=== PATIENT | male | born 1945 | race Caucasian/White ===

== ENCOUNTER 2019-03-22 11:28 | Inpatient (IN) | payer MEDICARE ==
[~2019-03-22] VITALS: Ht 175.3 cm; Wt 113.4 kg
[~2019-03-22 11:28] MED LIST: ALLO100T PO; ALPH300C PO; ASPI-482 PO; ATOR10TA PO; CALC500T54 PO; FERR325T14 PO; GABA300C18 PO; GLIP10TA13 PO; GLUC1TAB26 PO; INSU100I17 SQ; INSU100I27 SQ; LISI1TAB7 PO; METF10007 PO; METH-38 PO; METH4TAB2 PO; MULT1TAB52 PO; NAPR220C4 PO; OMEG500C PO; OXYC1TAB15 PO; POTA10TA12 PO; SITA100T PO; [UNRECOGNIZED DRUG - CODE] PO
[2019-03-22 12:27] LABS: BASO % 1 % (0-3); EOS # 0.2 x10^3/uL (0.0-0.7); EOS % 2 % (0-3); HEMATOCRIT 21.5 % (39.0-53.0); HEMOGLOBIN 7.2 g/dL (13.0-17.5); LYMPH # 1.5 x10^3/uL (1.0-4.8); LYMPH % 15 % (24-48); MEAN CORPUSCULAR HEMOGLOBIN 30 pg (25-35); MEAN CORPUSCULAR HGB CONC 34 g/dL (31-37); MEAN CORPUSCULAR VOLUME 88 fL (79-100); MONO # 0.8 x10^3/uL (0.0-1.1); MONO % 8 % (0-9); NEUT # 7.5 x10^3uL (1.8-7.7); NEUT % 75 % (31-73); PLATELET COUNT 476 x10^3/uL (140-400); RED BLOOD COUNT 2.44 x10^6/uL (4.30-5.70); RED CELL DISTRIBUTION WIDTH 15.2 % (11.5-14.5)
[2019-03-22 12:35] LABS: PROTHROMBIN TIME PATIENT 14.5 SEC (11.7-14.0)
[2019-03-22 13:00] LABS: CALCIUM 8.7 mg/dL (8.5-10.1); CREATININE 0.7 mg/dL (0.7-1.3); GFR 110.9
[2019-03-22 13:04] LABS: ALBUMIN 2.3 g/dL (3.4-5.0); ALBUMIN/GLOBULIN RATIO 0.6 (1.0-1.7); TOTAL BILIRUBIN 0.4 mg/dL (0.2-1.0); TOTAL PROTEIN 6.3 g/dL (6.4-8.2)
[2019-03-22 13:32] LABS: BILIRUBIN,URINE NEGATIVE (NEG); CLARITY,URINE CLEAR; COLOR,URINE YELLOW; NITRITE,URINE NEGATIVE (NEG); PH,URINE 5.5; PROTEIN,URINE NEGATIVE (NEG-TRACE); UROBILINOGEN,URINE 0.2 mg/dL (0.2 mg/dL)
[2019-03-22 13:40] LABS: HYALINE CASTS, URINE MODERATE /HPF; SQUAMOUS EPITHELIAL CELL,UR FEW /LPF
[2019-03-22 13:41] LABS: BACTERIA,URINE 0 /HPF (0-FEW); RBC,URINE 0 /HPF (0-2); WBC,URINE 0 /HPF (0-4)
--- NOTE | 2019-03-22 13:47 | PHYS DOC ---
Past Medical History Past Medical History: Diabetes-Type II, High Cholesterol, Heart Disease, Hypertension, Other Additional Past Medical Histor: COLON CA, SLEEP APNEA Past Surgical History: Cholecystectomy, Colectomy, Tonsillectomy Additional Past Surgical Histo: QUADRICEPS REPAIR Alcohol Use: None Drug Use: None Adult General Chief Complaint Chief Complaint: Abnormal labs HPI HPI Patient is a 73 year old wheelchair-bound male resident of rehabilitation who brought in by EMS because of abnormal labs. Patient had drop off his hemoglobin recently with hemoglobin of 7.5 today and sent to ER for evaluation. Patient had negative stool occult blood at long term. Patient denies hematuria and hematemesis and melena and states he thinks he had bleeding in his knee because he had knee edema since his surgery in November. Patient denies shortness of breath and chest pain, generalized weakness, history of anemia. Review of Systems Review of Systems Constitutional: Denies fever or chills [] Eyes: Denies change in visual acuity, redness, or eye pain [] HENT: Denies nasal congestion or sore throat [] Respiratory: Denies cough or shortness of breath [] Cardiovascular: No additional information not addressed in HPI [] GI: Denies abdominal pain, nausea, vomiting, bloody stools or diarrhea [] : Denies dysuria or hematuria [] Musculoskeletal: Denies back pain, reports joint pain [] Integument: Denies rash or skin lesions [] Neurologic: Denies headache, focal weakness or sensory changes [] Endocrine: Denies polyuria or polydipsia [] All other systems were reviewed and found to be within normal limits, except as documented in this note. Allergies Allergies Physical Exam Physical Exam Constitutional: Well developed, well nourished, no acute distress, non-toxic appearance, pallor , obese. [] HENT: Normocephalic, atraumatic Eyes: PERRLA, EOMI, conjunctiva normal, no discharge. [] Neck: Normal range of motion, no tenderness, supple, no stridor. [] Cardiovascular:Heart rate regular rhythm, no murmur [] Lungs & Thorax: Bilateral breath sounds clear to auscultation [] Abdomen: Bowel sounds normal, soft, no tenderness, no masses, no pulsatile masses. [] Skin: Warm, dry, no erythema, no rash. [] Extremities: Left lower extremity in the braces with moderate joint edema without ecchymosis Neurologic: Alert and oriented X 3 Psychologic: Affect normal, judgement normal, mood normal. [] Current Patient Data Lab Values Laboratory Tests Test 03/22/19 12:15 White Blood Count 10.0 x10^3/uL (4.0-11.0) Red Blood Count 2.46 x10^6/uL (4.30-5.70) L Hemoglobin 7.2 g/dL (13.0-17.5) L Hematocrit 21.5 % (39.0-53.0) L Mean Corpuscular Volume 88 fL (79-100) Mean Corpuscular Hemoglobin 30 pg (25-35) Mean Corpuscular Hemoglobin Concent 34 g/dL (31-37) Red Cell Distribution Width 15.2 % (11.5-14.5) H Platelet Count 476 x10^3/uL (140-400) H Neutrophils (%) (Auto) 75 % (31-73) H Lymphocytes (%) (Auto) 15 % (24-48) L Monocytes (%) (Auto) 8 % (0-9) Eosinophils (%) (Auto) 2 % (0-3) Basophils (%) (Auto) 1 % (0-3) Neutrophils # (Auto) 7.5 x10^3uL (1.8-7.7) Lymphocytes # (Auto) 1.5 x10^3/uL (1.0-4.8) Monocytes # (Auto) 0.8 x10^3/uL (0.0-1.1) Eosinophils # (Auto) 0.2 x10^3/uL (0.0-0.7) Basophils # (Auto) 0.0 x10^3/uL (0.0-0.2) Absolute Reticulocyte Count 0.068 x10^6/uL (0.020-0.120) Percent Reticulocyte Count 2.8 % (0.5-2.3) H Immature Reticulocyte Fraction 0.48 (0.20-0.60) Prothrombin Time 14.5 SEC (11.7-14.0) H Prothrombin Time INR 1.2 (0.8-1.1) H PTT 33 SEC (24-38) Sodium Level 137 mmol/L (136-145) Potassium Level 4.0 mmol/L (3.5-5.1) Chloride Level 101 mmol/L (98-107) Carbon Dioxide Level 27 mmol/L (21-32) Anion Gap 9 (6-14) Blood Urea Nitrogen 17 mg/dL (8-26) Creatinine 0.7 mg/dL (0.7-1.3) Estimated GFR (Cockcroft-Gault) 110.9 BUN/Creatinine Ratio 24 (6-20) H Glucose Level 157 mg/dL (70-99) H Calcium Level 8.7 mg/dL (8.5-10.1) Iron Level 18 ug/dL (65-175) L Total Iron Binding Capacity 162 ug/dL (250-450) L Iron Saturation 11 % (15-34) L Total Bilirubin 0.4 mg/dL (0.2-1.0) Aspartate Amino Transferase (AST) 15 U/L (15-37) Alanine Aminotransferase (ALT) 25 U/L (16-63) Alkaline Phosphatase 107 U/L (46-116) Troponin I Quantitative < 0.017 ng/mL (0.000-0.055) CM-Ttv-K-Type Natriuretic Peptide 356 pg/mL (0-124) H Total Protein 6.3 g/dL (6.4-8.2) L Albumin 2.3 g/dL (3.4-5.0) L Albumin/Globulin Ratio 0.6 (1.0-1.7) L Laboratory Tests 03/22/19 12:15 Laboratory Tests 03/22/19 12:15 EKG EKG [] Radiology/Procedures Radiology/Procedures [] Course & Med Decision Making Course & Med Decision Making Pertinent Labs reviewed. (See chart for details) Evaluation of patient in ER showed 73-year-old male patient sent from long term because of drop of his hemoglobin. Patient had hemoglobin of 7.2 in ER. Patient requiring admission for further evaluation and treatment. Discussed with Dr. Aguilar who is in agreement with admission. Discussed findings and plan with patient and family, who acknowledge understanding and agreement. Dragon Disclaimer Dragon Disclaimer This electronic medical record was generated, in whole or in part, using a voice recognition dictation system. Departure Departure Impression: Primary Impression: Anemia Disposition: ADMITTED INPATIENT (At 1312) Admitting Physician: Alfonso Trotter (accepted admission at 1311) Condition: STABLE Referrals: FORTINO JOHNSON (PCP) Scripts [Pantoprazole] 40 MG TABLET.DR Dewitt Conflict Check 40 MG PO DAILYAC for 30 Days, #30 Prov: ALFONSO AGUILAR MD 03/24/19 Problem Qualifiers Primary Impression: Anemia Anemia type: unspecified type Qualified Codes: D64.9 - Anemia, unspecified GREG STEEL MD March 22, 2019 13:47
--- NOTE | 2019-03-22 14:05 | PDOC1 ---
History and Physical Date of Admission Date of Admission DATE: 03/22/19 TIME: 14:05 Identification/Chief Complaint Chief Complaint seen in er , 73 year old wheelchair-bound male resident of rehabilitation who is brought in by EMS because of abnormal labs. Patient had drop off his hemoglobin recently with hemoglobin of 7.5 today and sent to ER for evaluation. Patient had negative stool occult blood at long-term. Patient denies hematuria and hematemesis and melena and states he thinks had bleeding in his knee because he had knee edema since his surgery in November. Patient denies shortness of breath and chest pain, generalized weakness, history of anemia. Past Medical History Past Medical History Past Medical History Past Medical History: Diabetes-Type II, High Cholesterol, Heart Disease, Hypertension, Other Additional Past Medical Histor: COLON CA, SLEEP APNEA Past Surgical History: Cholecystectomy, Colectomy, Tonsillectomy Additional Past Surgical Histo: QUADRICEPS REPAIR left leg 2019 Alcohol Use: None Drug Use: None family hx obesity Cardiovascular: HTN GI: No pertinent hx Heme/Onc: No pertinent hx Hepatobiliary: No pertinent hx Psych: No pertinent hx Musculoskeletal: low back pain Infectious disease: No pertinent hx Endocrine: Diabetes Past Surgical History Past Surgical History: Total knee replacement Family History Family History: No Significant, High Cholestrol, Hypertension Social History Smoke: No ALCOHOL: none Drugs: None Current Medications Current Medications Active Scripts Active Levemir Flextouch (Insulin Detemir) 100 Unit/1 Ml Insuln.pen 12 Units SQ QHS 30 Days Novolog Flexpen (Insulin Aspart) 100 Unit/1 Ml Insuln.pen 5 Units SQ TIDWMEALHC 30 Days Reported Robaxin-750 (Methocarbamol) 750 Mg Tablet 750 Mg PO PRN Q8HRS LAST DOSE GIVEN: DATE:10-15-16 TIME:8:30 a.m. NEXT DOSE DUE: DATE:10-15-16 TIME:4:30 p.m. if needed for muscle spasms Percocet 5-325 Mg Tablet (Oxycodone/Acetaminophen) 1 Each Tablet 1-2 Tab PO Q4- 6HRS No pain medication given this morning my take as needed for pain at any time Medrol (Methylprednisolone) 4 Mg Tab.ds.pk 1 Pkg PO UD Take as directed Allopurinol 100 Mg Tablet 1 Tab PO DAILY LAST DOSE GIVEN: DATE:10-15-16 TIME:8:30 a.m. NEXT DOSE DUE: DATE:10-16-16 TIME:8:30 a.m. Tdkwqoyxkd-Bdvojtljoyb-Bna Tab (Gluc/Juan-Msm#2/C/D3/[place]/Born) 1 Each Tablet 1 Each PO DAILY Not givne while in hosp. May resume at home as directed. Alpha Lipoic Acid 300 Mg Capsule 600 Mg PO DAILY Not given while in hosp. May resume at home as directed. Klor-Con 10 (Potassium Chloride) 10 Meq Tablet.er 1 Tab PO DAILY LAST DOSE GIVEN: DATE:10-15-16 TIME:8:30 a.m. NEXT DOSE DUE: DATE:10-16-16 TIME:8:30 a.m. Lipitor (Atorvastatin Calcium) 10 Mg Tablet 1 Tab PO QHS Not given while in hosp. May resume at home as directed Ferrous Sulfate 325 Mg Tablet 1 Tab PO BID LAST DOSE GIVEN: DATE:10-15-16 TIME:9:30 a.m. NEXT DOSE DUE: DATE:10-15-16 TIME:5:00 p.m. Calcium Lactate 650 Mg Tablet 250 Mg PO 8 TABS A DAY Not given whilein hosp. May resume at home as directed Fish Oil ([place]-3 Fatty Acids) 500 Mg Capsule.dr 1,000 Mg PO DAILY Not given while in hosp. May resume at home as directed Aspir 81 (Aspirin) 81 Mg Tablet.dr 1 Tab PO DAILY LAST DOSE GIVEN: DATE:10-15-16 TIME:9:00 a.m. NEXT DOSE DUE: DATE:10-16-16 TIME:9:00 a.m. Multivitamins (Multivitamin) 1 Each Tablet 1 Tab PO DAILY LAST DOSE GIVEN: DATE:10-15-16 TIME:8:30 a.m. NEXT DOSE DUE: DATE:10-16-16 TIME:8:30 a.m. Januvia (Sitagliptin Phosphate) 100 Mg Tablet 1 Tab PO DAILY LAST DOSE GIVEN: DATE:10-15-16 TIME:8:30 a.m. NEXT DOSE DUE: DATE:10-16-16 TIME:8;30 a.m. Lisinopril-Hctz 20-25 Mg Tab (Lisinopril/Hydrochlorothiazide) 1 Each Tablet 1 Tab PO DAILY LAST DOSE GIVEN: DATE:10-15-16 TIME:8:30 a.m. NEXT DOSE DUE: DATE:10-16-16 TIME:8:30 a.m. Metformin Hcl 1,000 Mg Tablet 1 Tab PO BID LAST DOSE GIVEN: DATE:10-15-16 TIME:9:00 a.m. NEXT DOSE DUE: DATE:10-15-16 TIME:5:00 p.m. Glipizide 10 Mg Tablet 1 Tab PO BID LAST DOSE GIVEN: DATE:10-15-16 TIME:8:30 a.m. NEXT DOSE DUE: DATE:10-15-16 TIME:5:00 p.m. Gabapentin 300 Mg Capsule 300 Mg PO BID LAST DOSE GIVEN: DATE:10-15-16 TIME:8:30 a.m. NEXT DOSE DUE: DATE:10-15-16 TIME:9:00 p.m. Allergies Allergies: Coded Allergies: triamcinolone (Verified Allergy, Intermediate, 10/14/16) tolerates dexamethasone ROS Review of System Review of Systems Review of Systems Constitutional: Denies fever or chills [] Eyes: Denies change in visual acuity, redness, or eye pain [] HENT: Denies nasal congestion or sore throat [] Respiratory: Denies cough or shortness of breath [] Cardiovascular: No additional information not addressed in HPI [] GI: Denies abdominal pain, nausea, vomiting, bloody stools or diarrhea [] : Denies dysuria or hematuria [] Musculoskeletal: Denies back pain, reports joint pain [] Integument: Denies rash or skin lesions [] Neurologic: Denies headache, focal weakness or sensory changes [] Endocrine: Denies polyuria or polydipsia [] 14 pt systems were reviewed and found to be within normal limits, except as documented General: YES: Fatigue Cardiovascular: No Chest Pain, No Palpitations, No Orthopnea, No Paroxysmal Noc. Dyspnea, No Edema, No Lt Headedness, No Other Gastrointestinal: No Nausea, No Vomiting, No Abdominal Pain, No Diarrhea, No Constipation, No Melena, No Hematochezia, No Other Musculoskeletal: Yes Gait Disturbance, Yes Joint Stiffness Neurological: Yes Gait Disturbance Physical Exam Physical Exam Physical Exam Physical Exam Constitutional: Well developed, well nourished, no acute distress, non-toxic appearance, pallor , obese. [] HENT: Normocephalic, atraumatic Eyes: PERRLA, EOMI, conjunctiva normal, no discharge. [] Neck: Normal range of motion, no tenderness, supple, no stridor. [] Cardiovascular:Heart rate regular rhythm, no murmur [] Lungs & Thorax: Bilateral breath sounds clear to auscultation [] Abdomen: Bowel sounds normal, soft, no tenderness, no masses, no pulsatile masses. [] Skin: Warm, dry, no erythema, no rash. [] Extremities: Left lower extremity in the braces with moderate joint edema without ecchymosis Neurologic: Alert and oriented X 3 Psychologic: Affect normal, judgement normal, mood normal. [] General: Alert, Oriented X3, Cooperative, mild distress HEENT: Atraumatic, PERRLA Lungs: Clear to auscultation Heart: RRR Abdomen: Normal bowel sounds, Soft, No tenderness Rectal Exam: not examined Extremities: No cyanosis Neuro: Normal speech, Cranial nerves 3-12 NL Psych/Mental Status: Mental status NL, Mood NL Vitals Vitals Vital Signs Date Time Temp Pulse Resp B/P (MAP) Pulse Ox O2 Delivery O2 Flow Rate FiO2 03/22/19 13:08 98.2 92 18 119/71 (87) 98 Room Air 98.2 Labs Labs Laboratory Tests Test 03/22/19 12:15 03/22/19 13:15 White Blood Count 10.0 x10^3/uL (4.0-11.0) Red Blood Count 2.44 x10^6/uL (4.30-5.70) Hemoglobin 7.2 g/dL (13.0-17.5) Hematocrit 21.5 % (39.0-53.0) Mean Corpuscular Volume 88 fL (79-100) Mean Corpuscular Hemoglobin 30 pg (25-35) Mean Corpuscular Hemoglobin Concent 34 g/dL (31-37) Red Cell Distribution Width 15.2 % (11.5-14.5) Platelet Count 476 x10^3/uL (140-400) Neutrophils (%) (Auto) 75 % (31-73) Lymphocytes (%) (Auto) 15 % (24-48) Monocytes (%) (Auto) 8 % (0-9) Eosinophils (%) (Auto) 2 % (0-3) Basophils (%) (Auto) 1 % (0-3) Neutrophils # (Auto) 7.5 x10^3uL (1.8-7.7) Lymphocytes # (Auto) 1.5 x10^3/uL (1.0-4.8) Monocytes # (Auto) 0.8 x10^3/uL (0.0-1.1) Eosinophils # (Auto) 0.2 x10^3/uL (0.0-0.7) Basophils # (Auto) 0.0 x10^3/uL (0.0-0.2) Prothrombin Time 14.5 SEC (11.7-14.0) Prothromb Time International Ratio 1.2 (0.8-1.1) Activated Partial Thromboplast Time 33 SEC (24-38) Sodium Level 137 mmol/L (136-145) Potassium Level 4.0 mmol/L (3.5-5.1) Chloride Level 101 mmol/L (98-107) Carbon Dioxide Level 27 mmol/L (21-32) Anion Gap 9 (6-14) Blood Urea Nitrogen 17 mg/dL (8-26) Creatinine 0.7 mg/dL (0.7-1.3) Estimated GFR (Cockcroft-Gault) 110.9 BUN/Creatinine Ratio 24 (6-20) Glucose Level 157 mg/dL (70-99) Calcium Level 8.7 mg/dL (8.5-10.1) Total Bilirubin 0.4 mg/dL (0.2-1.0) Aspartate Amino Transf (AST/SGOT) 15 U/L (15-37) Alanine Aminotransferase (ALT/SGPT) 25 U/L (16-63) Alkaline Phosphatase 107 U/L (46-116) Troponin I Quantitative < 0.017 ng/mL (0.000-0.055) NW-Zwh-K-Type Natriuretic Peptide 356 pg/mL (0-124) Total Protein 6.3 g/dL (6.4-8.2) Albumin 2.3 g/dL (3.4-5.0) Albumin/Globulin Ratio 0.6 (1.0-1.7) Urine Collection Type Unknown Urine Color Yellow Urine Clarity Clear Urine pH 5.5 Urine Specific [place] 1.015 Urine Protein Negative mg/dL (NEG-TRACE) Urine Glucose (UA) Negative mg/dL (NEG) Urine Ketones (Stick) Negative mg/dL (NEG) Urine Blood Negative (NEG) Urine Nitrite Negative (NEG) Urine Bilirubin Negative (NEG) Urine Urobilinogen Dipstick 0.2 mg/dL (0.2 mg/dL) Urine Leukocyte Esterase Negative (NEG) Urine RBC 0 /HPF (0-2) Urine WBC 0 /HPF (0-4) Urine Squamous Epithelial Cells Few /LPF Urine Bacteria 0 /HPF (0-FEW) Urine Hyaline Casts Moderate /HPF Urine Mucus Marked /LPF Laboratory Tests Test 03/22/19 12:15 03/22/19 13:15 White Blood Count 10.0 x10^3/uL (4.0-11.0) Red Blood Count 2.44 x10^6/uL (4.30-5.70) Hemoglobin 7.2 g/dL (13.0-17.5) Hematocrit 21.5 % (39.0-53.0) Mean Corpuscular Volume 88 fL (79-100) Mean Corpuscular Hemoglobin 30 pg (25-35) Mean Corpuscular Hemoglobin Concent 34 g/dL (31-37) Red Cell Distribution Width 15.2 % (11.5-14.5) Platelet Count 476 x10^3/uL (140-400) Neutrophils (%) (Auto) 75 % (31-73) Lymphocytes (%) (Auto) 15 % (24-48) Monocytes (%) (Auto) 8 % (0-9) Eosinophils (%) (Auto) 2 % (0-3) Basophils (%) (Auto) 1 % (0-3) Neutrophils # (Auto) 7.5 x10^3uL (1.8-7.7) Lymphocytes # (Auto) 1.5 x10^3/uL (1.0-4.8) Monocytes # (Auto) 0.8 x10^3/uL (0.0-1.1) Eosinophils # (Auto) 0.2 x10^3/uL (0.0-0.7) Basophils # (Auto) 0.0 x10^3/uL (0.0-0.2) Prothrombin Time 14.5 SEC (11.7-14.0) Prothromb Time International Ratio 1.2 (0.8-1.1) Activated Partial Thromboplast Time 33 SEC (24-38) Sodium Level 137 mmol/L (136-145) Potassium Level 4.0 mmol/L (3.5-5.1) Chloride Level 101 mmol/L (98-107) Carbon Dioxide Level 27 mmol/L (21-32) Anion Gap 9 (6-14) Blood Urea Nitrogen 17 mg/dL (8-26) Creatinine 0.7 mg/dL (0.7-1.3) Estimated GFR (Cockcroft-Gault) 110.9 BUN/Creatinine Ratio 24 (6-20) Glucose Level 157 mg/dL (70-99) Calcium Level 8.7 mg/dL (8.5-10.1) Total Bilirubin 0.4 mg/dL (0.2-1.0) Aspartate Amino Transf (AST/SGOT) 15 U/L (15-37) Alanine Aminotransferase (ALT/SGPT) 25 U/L (16-63) Alkaline Phosphatase 107 U/L (46-116) Troponin I Quantitative < 0.017 ng/mL (0.000-0.055) FJ-Gfw-V-Type Natriuretic Peptide 356 pg/mL (0-124) Total Protein 6.3 g/dL (6.4-8.2) Albumin 2.3 g/dL (3.4-5.0) Albumin/Globulin Ratio 0.6 (1.0-1.7) Urine Collection Type Unknown Urine Color Yellow Urine Clarity Clear Urine pH 5.5 Urine Specific [place] 1.015 Urine Protein Negative mg/dL (NEG-TRACE) Urine Glucose (UA) Negative mg/dL (NEG) Urine Ketones (Stick) Negative mg/dL (NEG) Urine Blood Negative (NEG) Urine Nitrite Negative (NEG) Urine Bilirubin Negative (NEG) Urine Urobilinogen Dipstick 0.2 mg/dL (0.2 mg/dL) Urine Leukocyte Esterase Negative (NEG) Urine RBC 0 /HPF (0-2) Urine WBC 0 /HPF (0-4) Urine Squamous Epithelial Cells Few /LPF Urine Bacteria 0 /HPF (0-FEW) Urine Hyaline Casts Moderate /HPF Urine Mucus Marked /LPF Images Images TECHNIQUE Sagittal T1, sagittal T2, sagittal STIR, axial T2, and axial T2 gradient sequences are provided. Standard coils could not be utilized, this results in poor signal to noise ratio limiting the study. COMPARISON CT from earlier today. FINDINGS There is no malalignment. There is fusion of C6 and C7, reported to be surgical. There is trace prevertebral edema but no thickening of the prevertebral soft tissues. There is no ligamentous injury or marrow edema on STIR imaging. Cervicomedullary junction is unremarkable. There is cord hyperintensity suspected at C5-C6. There is advanced degenerative change at this level. Degenerative findings will be estimated below, allowing for limitations of signal to noise ratio. C2-C3: There is facet hypertrophy without canal or foraminal compromise. C3-C4: There is a disc osteophyte complex and uncinate process spurring. There is buckling of ligamentum flavum. There is mild to moderate canal stenosis and probably high-grade bilateral foraminal narrowing. C4-C5: There is abnormal signal within the interspace at this level but no adjacent edema. This abnormal signal could be degenerative. It is unlikely to be infectious given no adjacent edema. Is unlikely to be posttraumatic given no adjacent marrow edema. There is a disc osteophyte complex and uncinate process spurring at this level with mild canal stenosis and mild foraminal narrowing. C5-C6: Prominent disc osteophyte complex and buckling of ligamentum flavum result in severe canal stenosis and cord flattening along with cord hyperintensity. Foraminal narrowing is at least mild to moderate. C6-C7: There is no canal or foraminal compromise. C7-T1: There is no canal or foraminal compromise. IMPRESSION 1. Prominent disc osteophyte complex and buckling of ligamentum flavum at C5-C6 with high-grade canal stenosis. Cord hyperintensity at this level may represent edema or myelomalacia. 2. Trace prevertebral edema on STIR imaging. No evidence of marrow edema or ligamentous injury. Abnormal signal within the C4-C5 disc is favored to be degenerative. 3. Additional degenerative changes throughout the cervical spine, estimated above. 4. Exam limited by body habitus and poor signal to noise ratio. 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
[2019-03-22 14:25] VITALS: BP 144/57
[2019-03-22] MEDS ORDERED: LISI1TAB3 PO (16:53)
[2019-03-22] MEDS ORDERED: CALCIUM LACTATE PO SCH (18:30)
[2019-03-22] MEDS ORDERED: oxyCODONE/APAP 5/325 1 TAB TABLET PO PRN ×2 (18:30→18:45)
[2019-03-22] MEDS: PANTOPRAZOLE IV PUSH 40 MG VIAL. IVP SCH (18:52)
[2019-03-22 19:00] VITALS: BP 126/61
[2019-03-22] MEDS ORDERED: INSULIN GLARGINE 300 UNITS/3 ML INSULN.PEN. SQ SCH (21:00)
[2019-03-22] MEDS ORDERED: INSULIN LISPRO 300 UNITS/3 ML INSULN.PEN. SQ SCH (21:00)
[2019-03-22] MEDS: FERROUS SULFATE 325 MG TABLET. PO SCH (21:10)
[2019-03-22] MEDS: ATORVASTATIN CALCIUM 10 MG TABLET. PO SCH (21:10)
[2019-03-22 23:00] VITALS: BP 124/55
[2019-03-23 04:00] VITALS: BP 120/57
[2019-03-23 07:00] VITALS: BP 117/45
[2019-03-23 08:29] LABS: BASO # 0.1 x10^3/uL (0.0-0.2); BASO % 1 % (0-3); EOS # 0.2 x10^3/uL (0.0-0.7); EOS % 3 % (0-3); HEMATOCRIT 22.6 % (39.0-53.0); HEMOGLOBIN 7.4 g/dL (13.0-17.5); LYMPH # 1.9 x10^3/uL (1.0-4.8); LYMPH % 20 % (24-48); MEAN CORPUSCULAR HEMOGLOBIN 29 pg (25-35); MEAN CORPUSCULAR HGB CONC 33 g/dL (31-37); MEAN CORPUSCULAR VOLUME 88 fL (79-100); MONO # 0.7 x10^3/uL (0.0-1.1); MONO % 7 % (0-9); NEUT # 6.9 x10^3uL (1.8-7.7); NEUT % 71 % (31-73); PLATELET COUNT 519 x10^3/uL (140-400); RED BLOOD COUNT 2.57 x10^6/uL (4.30-5.70); RED CELL DISTRIBUTION WIDTH 15.4 % (11.5-14.5); WHITE BLOOD COUNT 9.8 x10^3/uL (4.0-11.0)
[2019-03-23 08:38] LABS: CALCIUM 9.1 mg/dL (8.5-10.1); CREATININE 0.7 mg/dL (0.7-1.3); GFR 110.9; POTASSIUM 4.1 mmol/L (3.5-5.1)
[2019-03-23] MEDS: glipiZIDE 5 MG TABLET PO SCH ×2 (08:55→16:27)
[2019-03-23] MEDS: PANTOPRAZOLE IV PUSH 40 MG VIAL. IVP SCH (08:55)
[2019-03-23] MEDS: LINAGLIPTIN 5 MG TABLET PO SCH (08:56)
[2019-03-23] MEDS: POTASSIUM CHLORIDE 10 MEQ TABLET.ER. PO SCH (08:56)
[2019-03-23] MEDS: FERROUS SULFATE 325 MG TABLET. PO SCH ×2 (08:56→20:55)
[2019-03-23] MEDS: hydroCHLOROthiazide 12.5 MG CAPSULE PO SCH (08:56)
[2019-03-23] MEDS: LISINOPRIL 10 MG TABLET PO SCH (08:56)
[2019-03-23] MEDS: OMEGA-3 FATTY ACIDS/FISH OIL 1,000 MG CAPSULE. PO SCH (08:57)
[2019-03-23] MEDS: MULTIVITAMIN with MINERAL TABLET. PO SCH (08:57)
[2019-03-23] MEDS ORDERED: NON FORMULARY ITEM (Alpha Lipoic Acid 600 MG) PO SCH (09:00)
[2019-03-23] MEDS ORDERED: NON FORMULARY ITEM (Gluc/Chon-Msm#2/C/D3/Mang/Born (Glucosamin-Chondroitin-Msm Tab) 1 EACH PO SCH (09:00)
--- NOTE | 2019-03-23 09:43 | PDOC2 ---
GI CONSULT Reason For Consult: Anemia, possible GI bleed HPI: HPI: 73 y/o male sent to ER from rehab facility w/ abnormal labs. Hgb 7.2, MCV 88, RDW 15.2. Per ER note, previous fecal occult was negative. Iron 18, TIBC 162, sat 11. For comparison, Hgb was 12.7 in 2016. Denies GI bleeding including hematemesis, hematochezia, and melena (though he doesn't look at stools). Takes ASA 81mg QD and iron BID "for a couple years." Has known about anemia since sometime last month. Had knee surgery @ [facility] in 11/2018, post-op complications w/ falls, had to have another left knee surgery and then a right knee surgery. Still significant pain in left knee, reports "it's mushy" and was to see surgeon on Thursday. Daily Aleve for "arthritis pain." Denies reflux/heartburn, dysphagia, n/v, abd pain, diarrhea, and constipation. Recently has been having two small stools daily. Mobility in challenging, difficult to get to the toilet/commode. Recently has had Eating less since surgeries, thinks ~40 pound weight loss while in and out of rehab. H/o colon cancer in 06/2000 - colonoscopy report from Dr. 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 He has resection and chemo. Repeat exam in 2000 showed polyps @ anastomosis, then had normal colonoscopy in 2001. He reports last colonoscopy ~4-5 years ago @ [facility] (though not in office EMR). Denies previous EGD. S/p cholecystectomy ("when they operated on my colon"). Denies liver, pancreas, or PUD history. PMH: PMH: HTN, HLD, DM, SHERLYN (CPAP), colon cancer colon resection and chemo, hernia repair w/ mesh, cholecystectomy, cervical discectomy, bilateral knee surgeries, tonsillectomy FH: Family History: Other (father - colon polyps) Social History: Smoke: No ALCOHOL: none Drugs: None ROS: GEN: Denies fevers, chills, sweats HEENT: Denies blurred vision, sore throat CV: Denies chest pain RESP: Denies shortness of air, cough GI: Per HPI : Denies hematuria, dysuria ENDO: _weight loss NEURO: Denies confusion, dizziness MSK: +knee pain SKIN: Denies jaundice, pruritus Vitals: Vitals: Vital Signs Date Time Temp Pulse Resp B/P (MAP) Pulse Ox O2 Delivery O2 Flow Rate FiO2 03/23/19 08:56 112 122/52 03/23/19 07:00 98.3 20 96 Room Air 98.3 Labs: Labs: Laboratory Tests Test 03/22/19 12:15 03/22/19 13:15 03/22/19 18:13 03/22/19 21:15 White Blood Count 10.0 x10^3/uL (4.0-11.0) Red Blood Count 2.46 x10^6/uL (4.30-5.70) Hemoglobin 7.2 g/dL (13.0-17.5) Hematocrit 21.5 % (39.0-53.0) Mean Corpuscular Volume 88 fL (79-100) Mean Corpuscular Hemoglobin 30 pg (25-35) Mean Corpuscular Hemoglobin Concent 34 g/dL (31-37) Red Cell Distribution Width 15.2 % (11.5-14.5) Platelet Count 476 x10^3/uL (140-400) Neutrophils (%) (Auto) 75 % (31-73) Lymphocytes (%) (Auto) 15 % (24-48) Monocytes (%) (Auto) 8 % (0-9) Eosinophils (%) (Auto) 2 % (0-3) Basophils (%) (Auto) 1 % (0-3) Neutrophils # (Auto) 7.5 x10^3uL (1.8-7.7) Lymphocytes # (Auto) 1.5 x10^3/uL (1.0-4.8) Monocytes # (Auto) 0.8 x10^3/uL (0.0-1.1) Eosinophils # (Auto) 0.2 x10^3/uL (0.0-0.7) Basophils # (Auto) 0.0 x10^3/uL (0.0-0.2) Absolute Reticulocyte Count 0.068 x10^6/uL (0.020-0.120) Percent Reticulocyte Count 2.8 % (0.5-2.3) Immature Reticulocyte Fraction 0.48 (0.20-0.60) Prothrombin Time 14.5 SEC (11.7-14.0) Prothromb Time International Ratio 1.2 (0.8-1.1) Activated Partial Thromboplast Time 33 SEC (24-38) Sodium Level 137 mmol/L (136-145) Potassium Level 4.0 mmol/L (3.5-5.1) Chloride Level 101 mmol/L (98-107) Carbon Dioxide Level 27 mmol/L (21-32) Anion Gap 9 (6-14) Blood Urea Nitrogen 17 mg/dL (8-26) Creatinine 0.7 mg/dL (0.7-1.3) Estimated GFR (Cockcroft-Gault) 110.9 BUN/Creatinine Ratio 24 (6-20) Glucose Level 157 mg/dL (70-99) Calcium Level 8.7 mg/dL (8.5-10.1) Iron Level 18 ug/dL (65-175) Total Iron Binding Capacity 162 ug/dL (250-450) Iron Saturation 11 % (15-34) Total Bilirubin 0.4 mg/dL (0.2-1.0) Aspartate Amino Transf (AST/SGOT) 15 U/L (15-37) Alanine Aminotransferase (ALT/SGPT) 25 U/L (16-63) Alkaline Phosphatase 107 U/L (46-116) Troponin I Quantitative < 0.017 ng/mL (0.000-0.055) BG-Urw-Y-Type Natriuretic Peptide 356 pg/mL (0-124) Total Protein 6.3 g/dL (6.4-8.2) Albumin 2.3 g/dL (3.4-5.0) Albumin/Globulin Ratio 0.6 (1.0-1.7) Urine Collection Type Unknown Urine Color Yellow Urine Clarity Clear Urine pH 5.5 Urine Specific [place] 1.015 Urine Protein Negative mg/dL (NEG-TRACE) Urine Glucose (UA) Negative mg/dL (NEG) Urine Ketones (Stick) Negative mg/dL (NEG) Urine Blood Negative (NEG) Urine Nitrite Negative (NEG) Urine Bilirubin Negative (NEG) Urine Urobilinogen Dipstick 0.2 mg/dL (0.2 mg/dL) Urine Leukocyte Esterase Negative (NEG) Urine RBC 0 /HPF (0-2) Urine WBC 0 /HPF (0-4) Urine Squamous Epithelial Cells Few /LPF Urine Bacteria 0 /HPF (0-FEW) Urine Hyaline Casts Moderate /HPF Urine Mucus Marked /LPF Glucose (Fingerstick) 49 mg/dL (70-99) 75 mg/dL (70-99) Test 03/22/19 23:58 03/23/19 07:25 03/23/19 07:57 Glucose (Fingerstick) 114 mg/dL (70-99) 138 mg/dL (70-99) White Blood Count 9.8 x10^3/uL (4.0-11.0) Red Blood Count 2.57 x10^6/uL (4.30-5.70) Hemoglobin 7.4 g/dL (13.0-17.5) Hematocrit 22.6 % (39.0-53.0) Mean Corpuscular Volume 88 fL (79-100) Mean Corpuscular Hemoglobin 29 pg (25-35) Mean Corpuscular Hemoglobin Concent 33 g/dL (31-37) Red Cell Distribution Width 15.4 % (11.5-14.5) Platelet Count 519 x10^3/uL (140-400) Neutrophils (%) (Auto) 71 % (31-73) Lymphocytes (%) (Auto) 20 % (24-48) Monocytes (%) (Auto) 7 % (0-9) Eosinophils (%) (Auto) 3 % (0-3) Basophils (%) (Auto) 1 % (0-3) Neutrophils # (Auto) 6.9 x10^3uL (1.8-7.7) Lymphocytes # (Auto) 1.9 x10^3/uL (1.0-4.8) Monocytes # (Auto) 0.7 x10^3/uL (0.0-1.1) Eosinophils # (Auto) 0.2 x10^3/uL (0.0-0.7) Basophils # (Auto) 0.1 x10^3/uL (0.0-0.2) Sodium Level 137 mmol/L (136-145) Potassium Level 4.1 mmol/L (3.5-5.1) Chloride Level 100 mmol/L (98-107) Carbon Dioxide Level 28 mmol/L (21-32) Anion Gap 9 (6-14) Blood Urea Nitrogen 12 mg/dL (8-26) Creatinine 0.7 mg/dL (0.7-1.3) Estimated GFR (Cockcroft-Gault) 110.9 Glucose Level 128 mg/dL (70-99) Calcium Level 9.1 mg/dL (8.5-10.1) Allergies: Coded Allergies: triamcinolone (Verified Allergy, Intermediate, 10/14/16) tolerates dexamethasone Medications: Current Medications Medications (Trade) Dose Ordered Sig/Elodia Route PRN Reason Start Time Stop Time Status Last Admin Dose Admin Pantoprazole Sodium (PROTONIX VIAL for IV PUSH) 40 mg DAILYAC IVP 03/22/19 18:30 03/23/19 08:55 Atorvastatin Calcium (Lipitor) 10 mg QHS PO 03/22/19 21:00 03/22/19 21:10 Ferrous Sulfate (Feosol) 325 mg BID PO 03/22/19 21:00 03/23/19 08:56 Potassium Chloride (Klor-Con) 10 meq DAILY PO 03/23/19 09:00 03/23/19 08:56 Glipizide (Glucotrol) 10 mg BIDBFRMEAL PO 03/23/19 07:30 03/23/19 08:55 Lisinopril (Prinivil) 10 mg DAILY PO 03/23/19 09:00 03/23/19 08:56 Multivitamins (Thera M Plus) 1 tab DAILY PO 03/23/19 09:00 03/23/19 08:57 Fish Oil (Fish Oil) 1,000 mg DAILY PO 03/23/19 09:00 03/23/19 08:57 Linagliptin (Tradjenta) 5 mg DAILY PO 03/23/19 09:00 03/23/19 08:56 Hydrochlorothiazide (Microzide) 12.5 mg DAILY PO 03/23/19 09:00 03/23/19 08:56 PE: GEN: NAD - laying in bed, asks RN to help him raise the head of bed HEENT: Atraumatic, PERRL LUNGS: CTAB HEART: RRR ABD: NABS, S/NT, obese EXTREMITY: brace on left knee, obviously uncomfortable w/ movement SKIN: No rashes, no jaundice NEURO/PSYCH: A & O 3 A/P: A/P: Anemia - mixed picture Recent knee surgeries, chronic pain H/o colon cancer w/ resection and chemo in 1999 - ?last colonoscopy S/p cholecystectomy NSAID use -- Note has iron BID ordered. Can change PPI to PO since eating. Will review any recs re: need for 'scopes w/ Dr. Odonnell. MARIO LOUIS March 23, 2019 09:43
--- NOTE | 2019-03-23 10:19 | PDOC ---
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 s/p fall with central cord syndrome 2016 diabetes type 2 uncontrolled morbid obesity HTN H/o colon cancer w/ resection and chemo in 1999 - ?last colonoscopy plan monitor h/h retic count iron panel ct abd/ pelvis r/o mass transfuse for hgb < 7.0 GI CONSULT IV PROTONIX 73 MIN PT EXAM, CHART REVIEW, > 50% OF TIME SPENT with exam, chart review, pt care coordination Vitals Vitals Vital Signs Date Time Temp Pulse Resp B/P (MAP) Pulse Ox O2 Delivery O2 Flow Rate FiO2 03/23/19 08:56 112 122/52 03/23/19 07:00 98.3 20 96 Room Air 98.3 Physical Exam General: Alert, Oriented X3, Cooperative, No acute distress, mild distress Lungs: Clear, Wheezing Abdomen: Normal bowel sounds, Soft, No tenderness Extremities: No cyanosis Skin: No rashes Labs LABS Laboratory Tests Test 03/22/19 12:15 03/22/19 13:15 03/22/19 18:13 03/22/19 21:15 White Blood Count 10.0 x10^3/uL (4.0-11.0) Red Blood Count 2.46 x10^6/uL (4.30-5.70) Hemoglobin 7.2 g/dL (13.0-17.5) Hematocrit 21.5 % (39.0-53.0) Mean Corpuscular Volume 88 fL (79-100) Mean Corpuscular Hemoglobin 30 pg (25-35) Mean Corpuscular Hemoglobin Concent 34 g/dL (31-37) Red Cell Distribution Width 15.2 % (11.5-14.5) Platelet Count 476 x10^3/uL (140-400) Neutrophils (%) (Auto) 75 % (31-73) Lymphocytes (%) (Auto) 15 % (24-48) Monocytes (%) (Auto) 8 % (0-9) Eosinophils (%) (Auto) 2 % (0-3) Basophils (%) (Auto) 1 % (0-3) Neutrophils # (Auto) 7.5 x10^3uL (1.8-7.7) Lymphocytes # (Auto) 1.5 x10^3/uL (1.0-4.8) Monocytes # (Auto) 0.8 x10^3/uL (0.0-1.1) Eosinophils # (Auto) 0.2 x10^3/uL (0.0-0.7) Basophils # (Auto) 0.0 x10^3/uL (0.0-0.2) Absolute Reticulocyte Count 0.068 x10^6/uL (0.020-0.120) Percent Reticulocyte Count 2.8 % (0.5-2.3) Immature Reticulocyte Fraction 0.48 (0.20-0.60) Prothrombin Time 14.5 SEC (11.7-14.0) Prothromb Time International Ratio 1.2 (0.8-1.1) Activated Partial Thromboplast Time 33 SEC (24-38) Sodium Level 137 mmol/L (136-145) Potassium Level 4.0 mmol/L (3.5-5.1) Chloride Level 101 mmol/L (98-107) Carbon Dioxide Level 27 mmol/L (21-32) Anion Gap 9 (6-14) Blood Urea Nitrogen 17 mg/dL (8-26) Creatinine 0.7 mg/dL (0.7-1.3) Estimated GFR (Cockcroft-Gault) 110.9 BUN/Creatinine Ratio 24 (6-20) Glucose Level 157 mg/dL (70-99) Calcium Level 8.7 mg/dL (8.5-10.1) Iron Level 18 ug/dL (65-175) Total Iron Binding Capacity 162 ug/dL (250-450) Iron Saturation 11 % (15-34) Total Bilirubin 0.4 mg/dL (0.2-1.0) Aspartate Amino Transf (AST/SGOT) 15 U/L (15-37) Alanine Aminotransferase (ALT/SGPT) 25 U/L (16-63) Alkaline Phosphatase 107 U/L (46-116) Troponin I Quantitative < 0.017 ng/mL (0.000-0.055) EE-Cps-P-Type Natriuretic Peptide 356 pg/mL (0-124) Total Protein 6.3 g/dL (6.4-8.2) Albumin 2.3 g/dL (3.4-5.0) Albumin/Globulin Ratio 0.6 (1.0-1.7) Urine Collection Type Unknown Urine Color Yellow Urine Clarity Clear Urine pH 5.5 Urine Specific [place] 1.015 Urine Protein Negative mg/dL (NEG-TRACE) Urine Glucose (UA) Negative mg/dL (NEG) Urine Ketones (Stick) Negative mg/dL (NEG) Urine Blood Negative (NEG) Urine Nitrite Negative (NEG) Urine Bilirubin Negative (NEG) Urine Urobilinogen Dipstick 0.2 mg/dL (0.2 mg/dL) Urine Leukocyte Esterase Negative (NEG) Urine RBC 0 /HPF (0-2) Urine WBC 0 /HPF (0-4) Urine Squamous Epithelial Cells Few /LPF Urine Bacteria 0 /HPF (0-FEW) Urine Hyaline Casts Moderate /HPF Urine Mucus Marked /LPF Glucose (Fingerstick) 49 mg/dL (70-99) 75 mg/dL (70-99) Test 03/22/19 23:58 03/23/19 07:25 03/23/19 07:57 Glucose (Fingerstick) 114 mg/dL (70-99) 138 mg/dL (70-99) White Blood Count 9.8 x10^3/uL (4.0-11.0) Red Blood Count 2.57 x10^6/uL (4.30-5.70) Hemoglobin 7.4 g/dL (13.0-17.5) Hematocrit 22.6 % (39.0-53.0) Mean Corpuscular Volume 88 fL (79-100) Mean Corpuscular Hemoglobin 29 pg (25-35) Mean Corpuscular Hemoglobin Concent 33 g/dL (31-37) Red Cell Distribution Width 15.4 % (11.5-14.5) Platelet Count 519 x10^3/uL (140-400) Neutrophils (%) (Auto) 71 % (31-73) Lymphocytes (%) (Auto) 20 % (24-48) Monocytes (%) (Auto) 7 % (0-9) Eosinophils (%) (Auto) 3 % (0-3) Basophils (%) (Auto) 1 % (0-3) Neutrophils # (Auto) 6.9 x10^3uL (1.8-7.7) Lymphocytes # (Auto) 1.9 x10^3/uL (1.0-4.8) Monocytes # (Auto) 0.7 x10^3/uL (0.0-1.1) Eosinophils # (Auto) 0.2 x10^3/uL (0.0-0.7) Basophils # (Auto) 0.1 x10^3/uL (0.0-0.2) Sodium Level 137 mmol/L (136-145) Potassium Level 4.1 mmol/L (3.5-5.1) Chloride Level 100 mmol/L (98-107) Carbon Dioxide Level 28 mmol/L (21-32) Anion Gap 9 (6-14) Blood Urea Nitrogen 12 mg/dL (8-26) Creatinine 0.7 mg/dL (0.7-1.3) Estimated GFR (Cockcroft-Gault) 110.9 Glucose Level 128 mg/dL (70-99) Calcium Level 9.1 mg/dL (8.5-10.1) Comment Review of Relevant I have reviewed the following items jennifer (where applicable) has been applied. Labs Laboratory Tests Test 03/22/19 12:15 03/22/19 13:15 03/22/19 18:13 03/22/19 21:15 White Blood Count 10.0 x10^3/uL (4.0-11.0) Red Blood Count 2.46 x10^6/uL (4.30-5.70) Hemoglobin 7.2 g/dL (13.0-17.5) Hematocrit 21.5 % (39.0-53.0) Mean Corpuscular Volume 88 fL (79-100) Mean Corpuscular Hemoglobin 30 pg (25-35) Mean Corpuscular Hemoglobin Concent 34 g/dL (31-37) Red Cell Distribution Width 15.2 % (11.5-14.5) Platelet Count 476 x10^3/uL (140-400) Neutrophils (%) (Auto) 75 % (31-73) Lymphocytes (%) (Auto) 15 % (24-48) Monocytes (%) (Auto) 8 % (0-9) Eosinophils (%) (Auto) 2 % (0-3) Basophils (%) (Auto) 1 % (0-3) Neutrophils # (Auto) 7.5 x10^3uL (1.8-7.7) Lymphocytes # (Auto) 1.5 x10^3/uL (1.0-4.8) Monocytes # (Auto) 0.8 x10^3/uL (0.0-1.1) Eosinophils # (Auto) 0.2 x10^3/uL (0.0-0.7) Basophils # (Auto) 0.0 x10^3/uL (0.0-0.2) Absolute Reticulocyte Count 0.068 x10^6/uL (0.020-0.120) Percent Reticulocyte Count 2.8 % (0.5-2.3) Immature Reticulocyte Fraction 0.48 (0.20-0.60) Prothrombin Time 14.5 SEC (11.7-14.0) Prothromb Time International Ratio 1.2 (0.8-1.1) Activated Partial Thromboplast Time 33 SEC (24-38) Sodium Level 137 mmol/L (136-145) Potassium Level 4.0 mmol/L (3.5-5.1) Chloride Level 101 mmol/L (98-107) Carbon Dioxide Level 27 mmol/L (21-32) Anion Gap 9 (6-14) Blood Urea Nitrogen 17 mg/dL (8-26) Creatinine 0.7 mg/dL (0.7-1.3) Estimated GFR (Cockcroft-Gault) 110.9 BUN/Creatinine Ratio 24 (6-20) Glucose Level 157 mg/dL (70-99) Calcium Level 8.7 mg/dL (8.5-10.1) Iron Level 18 ug/dL (65-175) Total Iron Binding Capacity 162 ug/dL (250-450) Iron Saturation 11 % (15-34) Total Bilirubin 0.4 mg/dL (0.2-1.0) Aspartate Amino Transf (AST/SGOT) 15 U/L (15-37) Alanine Aminotransferase (ALT/SGPT) 25 U/L (16-63) Alkaline Phosphatase 107 U/L (46-116) Troponin I Quantitative < 0.017 ng/mL (0.000-0.055) GF-Lxe-P-Type Natriuretic Peptide 356 pg/mL (0-124) Total Protein 6.3 g/dL (6.4-8.2) Albumin 2.3 g/dL (3.4-5.0) Albumin/Globulin Ratio 0.6 (1.0-1.7) Urine Collection Type Unknown Urine Color Yellow Urine Clarity Clear Urine pH 5.5 Urine Specific [place] 1.015 Urine Protein Negative mg/dL (NEG-TRACE) Urine Glucose (UA) Negative mg/dL (NEG) Urine Ketones (Stick) Negative mg/dL (NEG) Urine Blood Negative (NEG) Urine Nitrite Negative (NEG) Urine Bilirubin Negative (NEG) Urine Urobilinogen Dipstick 0.2 mg/dL (0.2 mg/dL) Urine Leukocyte Esterase Negative (NEG) Urine RBC 0 /HPF (0-2) Urine WBC 0 /HPF (0-4) Urine Squamous Epithelial Cells Few /LPF Urine Bacteria 0 /HPF (0-FEW) Urine Hyaline Casts Moderate /HPF Urine Mucus Marked /LPF Glucose (Fingerstick) 49 mg/dL (70-99) 75 mg/dL (70-99) Test 03/22/19 23:58 03/23/19 07:25 03/23/19 07:57 Glucose (Fingerstick) 114 mg/dL (70-99) 138 mg/dL (70-99) White Blood Count 9.8 x10^3/uL (4.0-11.0) Red Blood Count 2.57 x10^6/uL (4.30-5.70) Hemoglobin 7.4 g/dL (13.0-17.5) Hematocrit 22.6 % (39.0-53.0) Mean Corpuscular Volume 88 fL (79-100) Mean Corpuscular Hemoglobin 29 pg (25-35) Mean Corpuscular Hemoglobin Concent 33 g/dL (31-37) Red Cell Distribution Width 15.4 % (11.5-14.5) Platelet Count 519 x10^3/uL (140-400) Neutrophils (%) (Auto) 71 % (31-73) Lymphocytes (%) (Auto) 20 % (24-48) Monocytes (%) (Auto) 7 % (0-9) Eosinophils (%) (Auto) 3 % (0-3) Basophils (%) (Auto) 1 % (0-3) Neutrophils # (Auto) 6.9 x10^3uL (1.8-7.7) Lymphocytes # (Auto) 1.9 x10^3/uL (1.0-4.8) Monocytes # (Auto) 0.7 x10^3/uL (0.0-1.1) Eosinophils # (Auto) 0.2 x10^3/uL (0.0-0.7) Basophils # (Auto) 0.1 x10^3/uL (0.0-0.2) Sodium Level 137 mmol/L (136-145) Potassium Level 4.1 mmol/L (3.5-5.1) Chloride Level 100 mmol/L (98-107) Carbon Dioxide Level 28 mmol/L (21-32) Anion Gap 9 (6-14) Blood Urea Nitrogen 12 mg/dL (8-26) Creatinine 0.7 mg/dL (0.7-1.3) Estimated GFR (Cockcroft-Gault) 110.9 Glucose Level 128 mg/dL (70-99) Calcium Level 9.1 mg/dL (8.5-10.1) Laboratory Tests Test 03/22/19 12:15 03/22/19 13:15 03/22/19 18:13 03/22/19 21:15 White Blood Count 10.0 x10^3/uL (4.0-11.0) Red Blood Count 2.46 x10^6/uL (4.30-5.70) Hemoglobin 7.2 g/dL (13.0-17.5) Hematocrit 21.5 % (39.0-53.0) Mean Corpuscular Volume 88 fL (79-100) Mean Corpuscular Hemoglobin 30 pg (25-35) Mean Corpuscular Hemoglobin Concent 34 g/dL (31-37) Red Cell Distribution Width 15.2 % (11.5-14.5) Platelet Count 476 x10^3/uL (140-400) Neutrophils (%) (Auto) 75 % (31-73) Lymphocytes (%) (Auto) 15 % (24-48) Monocytes (%) (Auto) 8 % (0-9) Eosinophils (%) (Auto) 2 % (0-3) Basophils (%) (Auto) 1 % (0-3) Neutrophils # (Auto) 7.5 x10^3uL (1.8-7.7) Lymphocytes # (Auto) 1.5 x10^3/uL (1.0-4.8) Monocytes # (Auto) 0.8 x10^3/uL (0.0-1.1) Eosinophils # (Auto) 0.2 x10^3/uL (0.0-0.7) Basophils # (Auto) 0.0 x10^3/uL (0.0-0.2) Absolute Reticulocyte Count 0.068 x10^6/uL (0.020-0.120) Percent Reticulocyte Count 2.8 % (0.5-2.3) Immature Reticulocyte Fraction 0.48 (0.20-0.60) Prothrombin Time 14.5 SEC (11.7-14.0) Prothromb Time International Ratio 1.2 (0.8-1.1) Activated Partial Thromboplast Time 33 SEC (24-38) Sodium Level 137 mmol/L (136-145) Potassium Level 4.0 mmol/L (3.5-5.1) Chloride Level 101 mmol/L (98-107) Carbon Dioxide Level 27 mmol/L (21-32) Anion Gap 9 (6-14) Blood Urea Nitrogen 17 mg/dL (8-26) Creatinine 0.7 mg/dL (0.7-1.3) Estimated GFR (Cockcroft-Gault) 110.9 BUN/Creatinine Ratio 24 (6-20) Glucose Level 157 mg/dL (70-99) Calcium Level 8.7 mg/dL (8.5-10.1) Iron Level 18 ug/dL (65-175) Total Iron Binding Capacity 162 ug/dL (250-450) Iron Saturation 11 % (15-34) Total Bilirubin 0.4 mg/dL (0.2-1.0) Aspartate Amino Transf (AST/SGOT) 15 U/L (15-37) Alanine Aminotransferase (ALT/SGPT) 25 U/L (16-63) Alkaline Phosphatase 107 U/L (46-116) Troponin I Quantitative < 0.017 ng/mL (0.000-0.055) DU-Lot-L-Type Natriuretic Peptide 356 pg/mL (0-124) Total Protein 6.3 g/dL (6.4-8.2) Albumin 2.3 g/dL (3.4-5.0) Albumin/Globulin Ratio 0.6 (1.0-1.7) Urine Collection Type Unknown Urine Color Yellow Urine Clarity Clear Urine pH 5.5 Urine Specific [place] 1.015 Urine Protein Negative mg/dL (NEG-TRACE) Urine Glucose (UA) Negative mg/dL (NEG) Urine Ketones (Stick) Negative mg/dL (NEG) Urine Blood Negative (NEG) Urine Nitrite Negative (NEG) Urine Bilirubin Negative (NEG) Urine Urobilinogen Dipstick 0.2 mg/dL (0.2 mg/dL) Urine Leukocyte Esterase Negative (NEG) Urine RBC 0 /HPF (0-2) Urine WBC 0 /HPF (0-4) Urine Squamous Epithelial Cells Few /LPF Urine Bacteria 0 /HPF (0-FEW) Urine Hyaline Casts Moderate /HPF Urine Mucus Marked /LPF Glucose (Fingerstick) 49 mg/dL (70-99) 75 mg/dL (70-99) Test 03/22/19 23:58 03/23/19 07:25 03/23/19 07:57 Glucose (Fingerstick) 114 mg/dL (70-99) 138 mg/dL (70-99) White Blood Count 9.8 x10^3/uL (4.0-11.0) Red Blood Count 2.57 x10^6/uL (4.30-5.70) Hemoglobin 7.4 g/dL (13.0-17.5) Hematocrit 22.6 % (39.0-53.0) Mean Corpuscular Volume 88 fL (79-100) Mean Corpuscular Hemoglobin 29 pg (25-35) Mean Corpuscular Hemoglobin Concent 33 g/dL (31-37) Red Cell Distribution Width 15.4 % (11.5-14.5) Platelet Count 519 x10^3/uL (140-400) Neutrophils (%) (Auto) 71 % (31-73) Lymphocytes (%) (Auto) 20 % (24-48) Monocytes (%) (Auto) 7 % (0-9) Eosinophils (%) (Auto) 3 % (0-3) Basophils (%) (Auto) 1 % (0-3) Neutrophils # (Auto) 6.9 x10^3uL (1.8-7.7) Lymphocytes # (Auto) 1.9 x10^3/uL (1.0-4.8) Monocytes # (Auto) 0.7 x10^3/uL (0.0-1.1) Eosinophils # (Auto) 0.2 x10^3/uL (0.0-0.7) Basophils # (Auto) 0.1 x10^3/uL (0.0-0.2) Sodium Level 137 mmol/L (136-145) Potassium Level 4.1 mmol/L (3.5-5.1) Chloride Level 100 mmol/L (98-107) Carbon Dioxide Level 28 mmol/L (21-32) Anion Gap 9 (6-14) Blood Urea Nitrogen 12 mg/dL (8-26) Creatinine 0.7 mg/dL (0.7-1.3) Estimated GFR (Cockcroft-Gault) 110.9 Glucose Level 128 mg/dL (70-99) Calcium Level 9.1 mg/dL (8.5-10.1) Medications Current Medications Pantoprazole Sodium (PROTONIX VIAL for IV PUSH) 40 mg DAILYAC IVP Last administered on 03/23/19 08:55; Start 03/22/19 at 18:30 Atorvastatin Calcium (Lipitor) 10 mg QHS PO Last administered on 03/22/19at 21:10; Start 03/22/19 at 21:00 Ferrous Sulfate (Feosol) 325 mg BID PO Last administered on 03/23/19 08:56; Start 03/22/19 at 21:00 Oxycodone/ Acetaminophen (Percocet 5/325) 1 tab PRN Q6HRS PRN PO MODERATE PAIN; Start 03/22/19 at 18:30 Potassium Chloride (Klor-Con) 10 meq DAILY PO Last administered on 03/23/19 08: 56; Start 03/23/19 at 09:00 Non-Formulary Medication (Alpha Lipoic Acid ) 600 mg DAILY PO ; Start 03/23/19 at 09:00; Status UNV Non-Formulary Medication (Calcium Lactate ) 250 mg 8 tabs a day PO ; Start 03/22/19 at 18:30; Status UNV Glipizide (Glucotrol) 10 mg BIDBFRMEAL PO Last administered on 03/23/19 08:55; Start 03/23/19 at 07:30 Non-Formulary Medication (Gluc/Juan-Msm#2/ C/D3/Phoenix/Born (Fupsseuqnc-Zsnvovxlgfz-Ydr Tab)) 1 each DAILY PO ; Start 03/23/19 at 09:00; Status UNV Insulin Human Lispro (HumaLOG) 5 units TIDACHC SQ ; Start 03/22/19 at 21:00; Stop 03/22/19 at 21:13; Status DC Insulin Glargine (Lantus) 12 units QHS SQ ; Start 03/22/19 at 21:00; Stop 03/22/19 at 21:13; Status DC Lisinopril (Prinivil) 10 mg DAILY PO Last administered on 03/23/19at 08:56; Start 03/23/19 at 09:00 Multivitamins (Thera M Plus) 1 tab DAILY PO Last administered on 03/23/19at 08:57; Start 03/23/19 at 09:00 Fish Oil (Fish Oil) 1,000 mg DAILY PO Last administered on 03/23/19at 08:57; Start 03/23/19 at 09:00 Linagliptin (Tradjenta) 5 mg DAILY PO Last administered on 03/23/19at 08:56; Start 03/23/19 at 09:00 Hydrochlorothiazide (Microzide) 12.5 mg DAILY PO Last administered on 03/23/19at 08:56; Start 03/23/19 at 09:00 Oxycodone/ Acetaminophen (Percocet 5/325) 2 tab PRN Q6HRS PRN PO SEVERE PAIN; Start 03/22/19 at 18:45 Active Scripts Active Reported Lisinopril-Hctz 10-12.5 Mg Tab (Lisinopril/Hydrochlorothiazide) 1 Each Tablet 1 Tab PO DAILY Robaxin-750 (Methocarbamol) 750 Mg Tablet 750 Mg PO PRN Q8HRS LAST DOSE GIVEN: DATE:10-15-16 TIME:8:30 a.m. NEXT DOSE DUE: DATE:10-15-16 TIME:4:30 p.m. if needed for muscle spasms Percocet 5-325 Mg Tablet (Oxycodone/Acetaminophen) 1 Each Tablet 1-2 Tab PO Q4-6HRS No pain medication given this morning my take as needed for pain at any time Medrol (Methylprednisolone) 4 Mg Tab.ds.pk 1 Pkg PO UD Take as directed Allopurinol 100 Mg Tablet 1 Tab PO DAILY LAST DOSE GIVEN: DATE:10-15-16 TIME:8:30 a.m. NEXT DOSE DUE: DATE:10-16-16 TIME:8:30 a.m. Mrcmwpcysp-Sgsvovhmblr-Mrh Tab (Gluc/Juan-Msm#2/C/D3/P[place]enix/Born) 1 Each Tablet 1 Each PO DAILY Not givne while in hosp. May resume at home as directed. Alpha Lipoic Acid 300 Mg Capsule 600 Mg PO DAILY Not given while in hosp. May resume at home as directed. Klor-Con 10 (Potassium Chloride) 10 Meq Tablet.er 1 Tab PO DAILY LAST DOSE GIVEN: DATE:10-15-16 TIME:8:30 a.m. NEXT DOSE DUE: DATE:10-16-16 TIME:8:30 a.m. Lipitor (Atorvastatin Calcium) 10 Mg Tablet 1 Tab PO QHS Not given while in hosp. May resume at home as directed Ferrous Sulfate 325 Mg Tablet 1 Tab PO BID LAST DOSE GIVEN: DATE:10-15-16 TIME:9:30 a.m. NEXT DOSE DUE: DATE:10-15-16 TIME:5:00 p.m. Calcium Lactate 650 Mg Tablet 250 Mg PO 8 TABS A DAY Not given whilein hosp. May resume at home as directed Fish Oil (Makinen-3 Fatty Acids) 500 Mg Capsule.dr 1,000 Mg PO DAILY Not given while in hosp. May resume at home as directed Aspir 81 (Aspirin) 81 Mg Tablet.dr 1 Tab PO DAILY LAST DOSE GIVEN: DATE:10-15-16 TIME:9:00 a.m. NEXT DOSE DUE: DATE:10-16-16 TIME:9:00 a.m. Multivitamins (Multivitamin) 1 Each Tablet 1 Tab PO DAILY LAST DOSE GIVEN: DATE:10-15-16 TIME:8:30 a.m. NEXT DOSE DUE: DATE:10-16-16 TIME:8:30 a.m. Januvia (Sitagliptin Phosphate) 100 Mg Tablet 1 Tab PO DAILY LAST DOSE GIVEN: DATE:10-15-16 TIME:8:30 a.m. NEXT DOSE DUE: DATE:10-16-16 TIME:8;30 a.m. Lisinopril-Hctz 20-25 Mg Tab (Lisinopril/Hydrochlorothiazide) 1 Each Tablet 1 Tab PO DAILY LAST DOSE GIVEN: DATE:10-15-16 TIME:8:30 a.m. NEXT DOSE DUE: DATE:10-16-16 TIME:8:30 a.m. Metformin Hcl 1,000 Mg Tablet 1 Tab PO BID LAST DOSE GIVEN: DATE:10-15-16 TIME:9:00 a.m. NEXT DOSE DUE: DATE:10-15-16 TIME:5:00 p.m. Glipizide 10 Mg Tablet 1 Tab PO BID LAST DOSE GIVEN: DATE:10-15-16 TIME:8:30 a.m. NEXT DOSE DUE: DATE:10-15-16 TIME:5:00 p.m. Gabapentin (Gabapentin) 300 Mg Capsule 300 Mg PO BID LAST DOSE GIVEN: DATE:10-15-16 TIME:8:30 a.m. NEXT DOSE DUE: DATE:10-15-16 TIME:9:00 p.m. Vitals/I & O Vital Sign - Last 24 Hours 03/22/19 03/22/19 03/22/19 03/22/19 13:08 14:25 19:00 23:00 Temp 98.2 97.9 98.8 98.5 98.2 97.9 98.8 98.5 Pulse 92 97 95 98 Resp 18 20 20 20 B/P (MAP) 119/71 (87) 144/57 (86) 126/61 (82) 124/55 (78) Pulse Ox 98 98 97 96 O2 Delivery Room Air Room Air Room Air Room Air 03/23/19 03/23/19 03/23/19 04:00 07:00 08:56 Temp 97.9 98.3 97.9 98.3 Pulse 91 104 112 Resp 20 20 B/P (MAP) 120/57 (78) 117/45 (69) 122/52 Pulse Ox 98 96 O2 Delivery Room Air Room Air Intake and Output 03/22/19 03/22/19 03/23/19 15:00 23:00 07:00 Intake Total 0 ml Output Total 700 ml Balance -700 ml IVA AGUILAR MD March 23, 2019 10:18
[2019-03-23 11:00] VITALS: BP 143/49
--- NOTE | 2019-03-23 14:12 | NUR ---
MERLIN following pt for anticipated dc needs. Chart reviewed and discussed with RN. MERLIN confirmed with Alva at [facility] and rehab, Pt has been privately paying to stay at facility until he is able to return home. Stephanie confirmed plan of return upon dc.
[2019-03-23 15:00] VITALS: BP 147/56
[2019-03-23] MEDS ORDERED: DEXTROSE 50% 25 GM / 50ML DISP.SYRIN. IV PRN (16:30)
[2019-03-23] MEDS: INSULIN LISPRO 300 UNITS/3 ML INSULN.PEN. SQ SCH (16:59)
--- NOTE | 2019-03-23 17:26 | NUR ---
Nursing note: Pt has been requesting assistance w/ simple tasks he can do on his own. Discussed increasing activity levels and self care. Pt states he is unable to use his left arm, and has limited movement w/ right arm. [facility] [place] pt does ambulate to bathroom, reaches for items w/ right arm, feeds self. Today pt refused to adjust self in bed, reach for his blanket, reach for the urinal. Will continue to monitor.
[2019-03-23 19:27] VITALS: BP 130/60
[2019-03-23] MEDS: ATORVASTATIN CALCIUM 10 MG TABLET. PO SCH (20:55)
[2019-03-23 23:00] VITALS: BP 130/70
[2019-03-24 02:32] VITALS: BP 129/52
--- NOTE | 2019-03-24 05:41 | NUR ---
Pt continues to call several times asking staff to help with various simple tasks such as straightening out his sheet, taking it off or putting it back on. Continues to be very rude to staff and very demanding. Refuses to help turn in bed because he isn't able to move his left arm but is able to at other various times. Also, refused to turn every 2 hours to maintain skin integrity. Reinforced education on the importance of turning in bed to prevent pressure ulcers. Pt states it hurts his leg too much to turn on either side. Assisted patient up to BSC with max assist of 2. Pt unable to move feet which makes it difficult to transfer patient to the BSC. Advised how unsafe transferring him to the BSC was for both him and staff. Requested patient to use bedpan but patient refused. Transferred patient to the BSC using the maxine left. Pt states "this is ridiculous because I can transferred myself". Reinforced education on the importance of transferring to BSC safely to protect himself and staff.
[2019-03-24 07:00] VITALS: BP 132/76
[2019-03-24] MEDS ORDERED: PROCHLORPERAZINE 10 MG/2 ML VIAL. IV PRN (07:00)
[2019-03-24] MEDS ORDERED: MORPHINE SULFATE 2 MG/ML VIAL. IV PRN (07:00)
[2019-03-24] MEDS ORDERED: ONDANSETRON PF 4 MG/2 ML VIAL. IV PRN (07:00)
[2019-03-24] MEDS ORDERED: IV RINGERS,LACTATED 1000ML 1,000 ML IV SCH (07:00)
[2019-03-24] MEDS ORDERED: LIDOCAINE 1% PF 2 ML VIAL. ID PRN (07:00)
[2019-03-24] MEDS ORDERED: fentaNYL PF VIAL 100 MCG/2 ML VIAL IV PRN ×2 (07:00)
[2019-03-24] MEDS ORDERED: HYDROmorphone 2 MG/ML VIAL IV PRN (07:00)
[2019-03-24] MEDS ORDERED: PANTOPRAZOLE 40 MG TABLET.DR. PO SCH (07:30)
[2019-03-24] MEDS: INSULIN LISPRO 300 UNITS/3 ML INSULN.PEN. SQ SCH ×2 (08:00→11:15)
[2019-03-24 08:19] LABS: BASO # 0.1 x10^3/uL (0.0-0.2); BASO % 1 % (0-3); EOS # 0.1 x10^3/uL (0.0-0.7); EOS % 1 % (0-3); HEMATOCRIT 24.5 % (39.0-53.0); HEMOGLOBIN 8.1 g/dL (13.0-17.5); LYMPH # 1.5 x10^3/uL (1.0-4.8); LYMPH % 15 % (24-48); MEAN CORPUSCULAR HEMOGLOBIN 29 pg (25-35); MEAN CORPUSCULAR HGB CONC 33 g/dL (31-37); MEAN CORPUSCULAR VOLUME 89 fL (79-100); MONO # 0.9 x10^3/uL (0.0-1.1); MONO % 9 % (0-9); NEUT # 7.3 x10^3uL (1.8-7.7); NEUT % 74 % (31-73); PLATELET COUNT 566 x10^3/uL (140-400); RED BLOOD COUNT 2.76 x10^6/uL (4.30-5.70); RED CELL DISTRIBUTION WIDTH 15.8 % (11.5-14.5); WHITE BLOOD COUNT 9.8 x10^3/uL (4.0-11.0)
[2019-03-24 08:28] LABS: CALCIUM 9.1 mg/dL (8.5-10.1); CREATININE 0.7 mg/dL (0.7-1.3); GFR 110.9; POTASSIUM 3.9 mmol/L (3.5-5.1)
[2019-03-24] MEDS: POTASSIUM CHLORIDE 10 MEQ TABLET.ER. PO SCH (08:44)
[2019-03-24] MEDS: FERROUS SULFATE 325 MG TABLET. PO SCH (08:44)
[2019-03-24] MEDS: MULTIVITAMIN with MINERAL TABLET. PO SCH (08:45)
[2019-03-24] MEDS: LINAGLIPTIN 5 MG TABLET PO SCH (08:45)
[2019-03-24] MEDS: OMEGA-3 FATTY ACIDS/FISH OIL 1,000 MG CAPSULE. PO SCH (08:45)
[2019-03-24] MEDS: glipiZIDE 5 MG TABLET PO SCH (08:45)
[2019-03-24] MEDS: LISINOPRIL 10 MG TABLET PO SCH (09:16)
[2019-03-24] MEDS: hydroCHLOROthiazide 12.5 MG CAPSULE PO SCH (09:18)
--- NOTE | 2019-03-24 09:35 | PDOC ---
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 central cord syndrome 2016 diabetes type 2 uncontrolled morbid obesity HTN H/o colon cancer w/ resection and chemo in 1999 - ?last colonoscopy plan monitor h/h retic count iron panel ct abd/ pelvis r/o mass transfuse for hgb < 7.0 GI CONSULT IV PROTONIX 34 MIN PT EXAM, CHART REVIEW, > 50% OF TIME SPENT with exam, chart review, pt care coordination Vitals Vitals Vital Signs Date Time Temp Pulse Resp B/P (MAP) Pulse Ox O2 Delivery O2 Flow Rate FiO2 03/24/19 09:16 99 144/70 03/24/19 08:47 24 Room Air 03/24/19 07:00 98.2 96 98.2 Physical Exam General: Alert, Oriented X3, Cooperative, No acute distress, mild distress Lungs: Clear, Wheezing Abdomen: Normal bowel sounds, Soft, No tenderness Extremities: No cyanosis Skin: No rashes Labs LABS Laboratory Tests Test 03/23/19 11:33 03/23/19 16:30 03/23/19 19:57 03/24/19 07:00 Glucose (Fingerstick) 262 mg/dL (70-99) 195 mg/dL (70-99) 169 mg/dL (70-99) White Blood Count 9.8 x10^3/uL (4.0-11.0) Red Blood Count 2.76 x10^6/uL (4.30-5.70) Hemoglobin 8.1 g/dL (13.0-17.5) Hematocrit 24.5 % (39.0-53.0) Mean Corpuscular Volume 89 fL (79-100) Mean Corpuscular Hemoglobin 29 pg (25-35) Mean Corpuscular Hemoglobin Concent 33 g/dL (31-37) Red Cell Distribution Width 15.8 % (11.5-14.5) Platelet Count 566 x10^3/uL (140-400) Neutrophils (%) (Auto) 74 % (31-73) Lymphocytes (%) (Auto) 15 % (24-48) Monocytes (%) (Auto) 9 % (0-9) Eosinophils (%) (Auto) 1 % (0-3) Basophils (%) (Auto) 1 % (0-3) Neutrophils # (Auto) 7.3 x10^3uL (1.8-7.7) Lymphocytes # (Auto) 1.5 x10^3/uL (1.0-4.8) Monocytes # (Auto) 0.9 x10^3/uL (0.0-1.1) Eosinophils # (Auto) 0.1 x10^3/uL (0.0-0.7) Basophils # (Auto) 0.1 x10^3/uL (0.0-0.2) Sodium Level 138 mmol/L (136-145) Potassium Level 3.9 mmol/L (3.5-5.1) Chloride Level 99 mmol/L (98-107) Carbon Dioxide Level 28 mmol/L (21-32) Anion Gap 11 (6-14) Blood Urea Nitrogen 11 mg/dL (8-26) Creatinine 0.7 mg/dL (0.7-1.3) Estimated GFR (Cockcroft-Gault) 110.9 Glucose Level 176 mg/dL (70-99) Calcium Level 9.1 mg/dL (8.5-10.1) Test 03/24/19 07:34 Glucose (Fingerstick) 173 mg/dL (70-99) Comment Review of Relevant I have reviewed the following items jennifer (where applicable) has been applied. Labs Laboratory Tests Test 03/22/19 12:15 03/22/19 13:15 03/22/19 18:13 03/22/19 21:15 White Blood Count 10.0 x10^3/uL (4.0-11.0) Red Blood Count 2.46 x10^6/uL (4.30-5.70) Hemoglobin 7.2 g/dL (13.0-17.5) Hematocrit 21.5 % (39.0-53.0) Mean Corpuscular Volume 88 fL (79-100) Mean Corpuscular Hemoglobin 30 pg (25-35) Mean Corpuscular Hemoglobin Concent 34 g/dL (31-37) Red Cell Distribution Width 15.2 % (11.5-14.5) Platelet Count 476 x10^3/uL (140-400) Neutrophils (%) (Auto) 75 % (31-73) Lymphocytes (%) (Auto) 15 % (24-48) Monocytes (%) (Auto) 8 % (0-9) Eosinophils (%) (Auto) 2 % (0-3) Basophils (%) (Auto) 1 % (0-3) Neutrophils # (Auto) 7.5 x10^3uL (1.8-7.7) Lymphocytes # (Auto) 1.5 x10^3/uL (1.0-4.8) Monocytes # (Auto) 0.8 x10^3/uL (0.0-1.1) Eosinophils # (Auto) 0.2 x10^3/uL (0.0-0.7) Basophils # (Auto) 0.0 x10^3/uL (0.0-0.2) Absolute Reticulocyte Count 0.068 x10^6/uL (0.020-0.120) Percent Reticulocyte Count 2.8 % (0.5-2.3) Immature Reticulocyte Fraction 0.48 (0.20-0.60) Prothrombin Time 14.5 SEC (11.7-14.0) Prothromb Time International Ratio 1.2 (0.8-1.1) Activated Partial Thromboplast Time 33 SEC (24-38) Sodium Level 137 mmol/L (136-145) Potassium Level 4.0 mmol/L (3.5-5.1) Chloride Level 101 mmol/L (98-107) Carbon Dioxide Level 27 mmol/L (21-32) Anion Gap 9 (6-14) Blood Urea Nitrogen 17 mg/dL (8-26) Creatinine 0.7 mg/dL (0.7-1.3) Estimated GFR (Cockcroft-Gault) 110.9 BUN/Creatinine Ratio 24 (6-20) Glucose Level 157 mg/dL (70-99) Calcium Level 8.7 mg/dL (8.5-10.1) Iron Level 18 ug/dL (65-175) Total Iron Binding Capacity 162 ug/dL (250-450) Iron Saturation 11 % (15-34) Total Bilirubin 0.4 mg/dL (0.2-1.0) Aspartate Amino Transf (AST/SGOT) 15 U/L (15-37) Alanine Aminotransferase (ALT/SGPT) 25 U/L (16-63) Alkaline Phosphatase 107 U/L (46-116) Troponin I Quantitative < 0.017 ng/mL (0.000-0.055) NM-Qra-D-Type Natriuretic Peptide 356 pg/mL (0-124) Total Protein 6.3 g/dL (6.4-8.2) Albumin 2.3 g/dL (3.4-5.0) Albumin/Globulin Ratio 0.6 (1.0-1.7) Urine Collection Type Unknown Urine Color Yellow Urine Clarity Clear Urine pH 5.5 Urine Specific [place] 1.015 Urine Protein Negative mg/dL (NEG-TRACE) Urine Glucose (UA) Negative mg/dL (NEG) Urine Ketones (Stick) Negative mg/dL (NEG) Urine Blood Negative (NEG) Urine Nitrite Negative (NEG) Urine Bilirubin Negative (NEG) Urine Urobilinogen Dipstick 0.2 mg/dL (0.2 mg/dL) Urine Leukocyte Esterase Negative (NEG) Urine RBC 0 /HPF (0-2) Urine WBC 0 /HPF (0-4) Urine Squamous Epithelial Cells Few /LPF Urine Bacteria 0 /HPF (0-FEW) Urine Hyaline Casts Moderate /HPF Urine Mucus Marked /LPF Glucose (Fingerstick) 49 mg/dL (70-99) 75 mg/dL (70-99) Test 03/22/19 23:58 03/23/19 07:25 03/23/19 07:57 03/23/19 11:33 Glucose (Fingerstick) 114 mg/dL (70-99) 138 mg/dL (70-99) 262 mg/dL (70-99) White Blood Count 9.8 x10^3/uL (4.0-11.0) Red Blood Count 2.57 x10^6/uL (4.30-5.70) Hemoglobin 7.4 g/dL (13.0-17.5) Hematocrit 22.6 % (39.0-53.0) Mean Corpuscular Volume 88 fL (79-100) Mean Corpuscular Hemoglobin 29 pg (25-35) Mean Corpuscular Hemoglobin Concent 33 g/dL (31-37) Red Cell Distribution Width 15.4 % (11.5-14.5) Platelet Count 519 x10^3/uL (140-400) Neutrophils (%) (Auto) 71 % (31-73) Lymphocytes (%) (Auto) 20 % (24-48) Monocytes (%) (Auto) 7 % (0-9) Eosinophils (%) (Auto) 3 % (0-3) Basophils (%) (Auto) 1 % (0-3) Neutrophils # (Auto) 6.9 x10^3uL (1.8-7.7) Lymphocytes # (Auto) 1.9 x10^3/uL (1.0-4.8) Monocytes # (Auto) 0.7 x10^3/uL (0.0-1.1) Eosinophils # (Auto) 0.2 x10^3/uL (0.0-0.7) Basophils # (Auto) 0.1 x10^3/uL (0.0-0.2) Sodium Level 137 mmol/L (136-145) Potassium Level 4.1 mmol/L (3.5-5.1) Chloride Level 100 mmol/L (98-107) Carbon Dioxide Level 28 mmol/L (21-32) Anion Gap 9 (6-14) Blood Urea Nitrogen 12 mg/dL (8-26) Creatinine 0.7 mg/dL (0.7-1.3) Estimated GFR (Cockcroft-Gault) 110.9 Glucose Level 128 mg/dL (70-99) Calcium Level 9.1 mg/dL (8.5-10.1) Test 03/23/19 16:30 03/23/19 19:57 03/24/19 07:00 03/24/19 07:34 Glucose (Fingerstick) 195 mg/dL (70-99) 169 mg/dL (70-99) 173 mg/dL (70-99) White Blood Count 9.8 x10^3/uL (4.0-11.0) Red Blood Count 2.76 x10^6/uL (4.30-5.70) Hemoglobin 8.1 g/dL (13.0-17.5) Hematocrit 24.5 % (39.0-53.0) Mean Corpuscular Volume 89 fL (79-100) Mean Corpuscular Hemoglobin 29 pg (25-35) Mean Corpuscular Hemoglobin Concent 33 g/dL (31-37) Red Cell Distribution Width 15.8 % (11.5-14.5) Platelet Count 566 x10^3/uL (140-400) Neutrophils (%) (Auto) 74 % (31-73) Lymphocytes (%) (Auto) 15 % (24-48) Monocytes (%) (Auto) 9 % (0-9) Eosinophils (%) (Auto) 1 % (0-3) Basophils (%) (Auto) 1 % (0-3) Neutrophils # (Auto) 7.3 x10^3uL (1.8-7.7) Lymphocytes # (Auto) 1.5 x10^3/uL (1.0-4.8) Monocytes # (Auto) 0.9 x10^3/uL (0.0-1.1) Eosinophils # (Auto) 0.1 x10^3/uL (0.0-0.7) Basophils # (Auto) 0.1 x10^3/uL (0.0-0.2) Sodium Level 138 mmol/L (136-145) Potassium Level 3.9 mmol/L (3.5-5.1) Chloride Level 99 mmol/L (98-107) Carbon Dioxide Level 28 mmol/L (21-32) Anion Gap 11 (6-14) Blood Urea Nitrogen 11 mg/dL (8-26) Creatinine 0.7 mg/dL (0.7-1.3) Estimated GFR (Cockcroft-Gault) 110.9 Glucose Level 176 mg/dL (70-99) Calcium Level 9.1 mg/dL (8.5-10.1) Laboratory Tests Test 03/23/19 11:33 03/23/19 16:30 03/23/19 19:57 03/24/19 07:00 Glucose (Fingerstick) 262 mg/dL (70-99) 195 mg/dL (70-99) 169 mg/dL (70-99) White Blood Count 9.8 x10^3/uL (4.0-11.0) Red Blood Count 2.76 x10^6/uL (4.30-5.70) Hemoglobin 8.1 g/dL (13.0-17.5) Hematocrit 24.5 % (39.0-53.0) Mean Corpuscular Volume 89 fL (79-100) Mean Corpuscular Hemoglobin 29 pg (25-35) Mean Corpuscular Hemoglobin Concent 33 g/dL (31-37) Red Cell Distribution Width 15.8 % (11.5-14.5) Platelet Count 566 x10^3/uL (140-400) Neutrophils (%) (Auto) 74 % (31-73) Lymphocytes (%) (Auto) 15 % (24-48) Monocytes (%) (Auto) 9 % (0-9) Eosinophils (%) (Auto) 1 % (0-3) Basophils (%) (Auto) 1 % (0-3) Neutrophils # (Auto) 7.3 x10^3uL (1.8-7.7) Lymphocytes # (Auto) 1.5 x10^3/uL (1.0-4.8) Monocytes # (Auto) 0.9 x10^3/uL (0.0-1.1) Eosinophils # (Auto) 0.1 x10^3/uL (0.0-0.7) Basophils # (Auto) 0.1 x10^3/uL (0.0-0.2) Sodium Level 138 mmol/L (136-145) Potassium Level 3.9 mmol/L (3.5-5.1) Chloride Level 99 mmol/L (98-107) Carbon Dioxide Level 28 mmol/L (21-32) Anion Gap 11 (6-14) Blood Urea Nitrogen 11 mg/dL (8-26) Creatinine 0.7 mg/dL (0.7-1.3) Estimated GFR (Cockcroft-Gault) 110.9 Glucose Level 176 mg/dL (70-99) Calcium Level 9.1 mg/dL (8.5-10.1) Test 03/24/19 07:34 Glucose (Fingerstick) 173 mg/dL (70-99) Medications Current Medications Pantoprazole Sodium (PROTONIX VIAL for IV PUSH) 40 mg DAILYAC IVP Last administered on 03/23/19at 08:55; Start 03/22/19 at 18:30; Stop 03/23/19 at 10:27; Status DC Atorvastatin Calcium (Lipitor) 10 mg QHS PO Last administered on 03/23/19at 20:55; Start 03/22/19 at 21:00 Ferrous Sulfate (Feosol) 325 mg BID PO Last administered on 03/24/19 08:44; Start 03/22/19 at 21:00 Oxycodone/ Acetaminophen (Percocet 5/325) 1 tab PRN Q6HRS PRN PO MODERATE PAIN Last administered on 03/24/19 08:47; Start 03/22/19 at 18:30 Potassium Chloride (Klor-Con) 10 meq DAILY PO Last administered on 03/24/19 08:44; Start 03/23/19 at 09:00 Non-Formulary Medication (Alpha Lipoic Acid ) 600 mg DAILY PO ; Start 03/23/19 at 09:00; Status UNV Non-Formulary Medication (Calcium Lactate ) 250 mg 8 tabs a day PO ; Start 03/22/19 at 18:30; Status UNV Glipizide (Glucotrol) 10 mg BIDBFRMEAL PO Last administered on 03/24/19 08:45; Start 03/23/19 at 07:30 Non-Formulary Medication (Gluc/Juan-Msm#2/ C/D3/[place]/Born (Tivpdqlshz-Rnzjpeelpjr-Zlt Tab)) 1 each DAILY PO ; Start 03/23/19 at 09:00; Status UNV Insulin Human Lispro (HumaLOG) 5 units TIDACHC SQ ; Start 03/22/19 at 21:00; S top 03/22/19 at 21:13; Status DC Insulin Glargine (Lantus) 12 units QHS SQ ; Start 03/22/19 at 21:00; Stop 03/22/19 at 21:13; Status DC Lisinopril (Prinivil) 10 mg DAILY PO Last administered on 03/24/19 09:16; Start 03/23/19 at 09:00 Multivitamins (Thera M Plus) 1 tab DAILY PO Last administered on 03/24/19 08:45; Start 03/23/19 at 09:00 Fish Oil (Fish Oil) 1,000 mg DAILY PO Last administered on 03/24/19 08:45; Start 03/23/19 at 09:00 Linagliptin (Tradjenta) 5 mg DAILY PO Last administered on 03/24/19 08:45; Start 03/23/19 at 09:00 Hydrochlorothiazide (Microzide) 12.5 mg DAILY PO Last administered on 5/9/19at 09:18; Start 03/23/19 at 09:00 Oxycodone/ Acetaminophen (Percocet 5/325) 2 tab PRN Q6HRS PRN PO SEVERE PAIN; Start 03/22/19 at 18:45 Pantoprazole Sodium (Protonix) 40 mg DAILYAC PO Last administered on 03/24/19at 08:46; Start 03/24/19 at 07:30 Ondansetron HCl (Zofran) 4 mg PRN Q6HRS PRN IV NAUSEA/VOMITING; Start 03/24/19 at 07:00; Stop 03/24/19 at 20:00 Fentanyl Citrate (Fentanyl 2ml Vial) 25 mcg PRN Q5MIN PRN IV MILD PAIN; Start 03/24/19 at 07:00; Stop 03/24/19 at 20:00 Fentanyl Citrate (Fentanyl 2ml Vial) 50 mcg PRN Q5MIN PRN IV MODERATE TO SEVERE PAIN; Start 03/24/19 at 07:00; Stop 03/24/19 at 20:00 Morphine Sulfate (Morphine Sulfate) 1 mg PRN Q10MIN PRN IV SEVERE PAIN; Start 03/24/19 at 07:00; Stop 03/24/19 at 20:00 Ringer's Solution 1,000 ml @ 30 mls/hr Q24H IV ; Start 03/24/19 at 07:00; Stop 03/24/19 at 18:59 Lidocaine HCl (Xylocaine-Mpf 1% 2ml Vial) 2 ml PRN 1X PRN ID IV START; Start 03/24/19 at 07:00; Stop 03/24/19 at 20:00 Hydromorphone HCl (Dilaudid) 0.5 mg PRN Q10MIN PRN IV SEV PAIN, Second choice; Start 03/24/19 at 07:00; Stop 03/24/19 at 20:00 Prochlorperazine Edisylate (Compazine) 5 mg PACU PRN PRN IV NAUSEA, MRX1; Start 03/24/19 at 07:00; Stop 03/24/19 at 20:00 Insulin Human Lispro (HumaLOG) 0-5 UNITS TIDWMEALS SQ Last administered on 03/23/19at 16:59; Start 03/23/19 at 17:00 Dextrose (Dextrose 50%-Water Syringe) 12.5 gm PRN Q15MIN PRN IV SEE COMMENTS; Start 03/23/19 at 16:30 Active Scripts Active Reported Lisinopril-Hctz 10-12.5 Mg Tab (Lisinopril/Hydrochlorothiazide) 1 Each Tablet 1 Tab PO DAILY Robaxin-750 (Methocarbamol) 750 Mg Tablet 750 Mg PO PRN Q8HRS LAST DOSE GIVEN: DATE:10-15-16 TIME:8:30 a.m. NEXT DOSE DUE: DATE:10-15-16 TIME:4:30 p.m. if needed for muscle spasms Percocet 5-325 Mg Tablet (Oxycodone/Acetaminophen) 1 Each Tablet 1-2 Tab PO Q4-6HRS No pain medication given this morning my take as needed for pain at any time Medrol (Methylprednisolone) 4 Mg Tab.ds.pk 1 Pkg PO UD Take as directed Allopurinol 100 Mg Tablet 1 Tab PO DAILY LAST DOSE GIVEN: DATE:10-15-16 TIME:8:30 a.m. NEXT DOSE DUE: DATE:10-16-16 TIME:8:30 a.m. Yxgbkfdlpl-Gvvqelcyegz-Ejt Tab (Gluc/Juan-Msm#2/C/D3/[place]/Born) 1 Each Tablet 1 Each PO DAILY Not givne while in hosp. May resume at home as directed. Alpha Lipoic Acid 300 Mg Capsule 600 Mg PO DAILY Not given while in hosp. May resume at home as directed. Klor-Con 10 (Potassium Chloride) 10 Meq Tablet.er 1 Tab PO DAILY LAST DOSE GIVEN: DATE:10-15-16 TIME:8:30 a.m. NEXT DOSE DUE: DATE:10-16-16 TIME:8:30 a.m. Lipitor (Atorvastatin Calcium) 10 Mg Tablet 1 Tab PO QHS Not given while in hosp. May resume at home as directed Ferrous Sulfate 325 Mg Tablet 1 Tab PO BID LAST DOSE GIVEN: DATE:10-15-16 TIME:9:30 a.m. NEXT DOSE DUE: DATE:10-15-16 TIME:5:00 p.m. Calcium Lactate 650 Mg Tablet 250 Mg PO 8 TABS A DAY Not given whilein hosp. May resume at home as directed Fish Oil ([place]-3 Fatty Acids) 500 Mg Capsule.dr 1,000 Mg PO DAILY Not given while in hosp. May resume at home as directed Aspir 81 (Aspirin) 81 Mg Tablet.dr 1 Tab PO DAILY LAST DOSE GIVEN: DATE:10-15-16 TIME:9:00 a.m. NEXT DOSE DUE: DATE:10-16-16 TIME:9:00 a.m. Multivitamins (Multivitamin) 1 Each Tablet 1 Tab PO DAILY LAST DOSE GIVEN: DATE:10-15-16 TIME:8:30 a.m. NEXT DOSE DUE: DATE:10-16-16 TIME:8:30 a.m. Januvia (Sitagliptin Phosphate) 100 Mg Tablet 1 Tab PO DAILY LAST DOSE GIVEN: DATE:10-15-16 TIME:8:30 a.m. NEXT DOSE DUE: DATE:10-16-16 TIME:8;30 a.m. Lisinopril-Hctz 20-25 Mg Tab (Lisinopril/Hydrochlorothiazide) 1 Each Tablet 1 Tab PO DAILY LAST DOSE GIVEN: DATE:10-15-16 TIME:8:30 a.m. NEXT DOSE DUE: DATE:10-16-16 TIME:8:30 a.m. Metformin Hcl 1,000 Mg Tablet 1 Tab PO BID LAST DOSE GIVEN: DATE:10-15-16 TIME:9:00 a.m. NEXT DOSE DUE: DATE:10-15-16 TIME:5:00 p.m. Glipizide 10 Mg Tablet 1 Tab PO BID LAST DOSE GIVEN: DATE:10-15-16 TIME:8:30 a.m. NEXT DOSE DUE: DATE:10-15-16 TIME:5:00 p.m. Gabapentin (Gabapentin) 300 Mg Capsule 300 Mg PO BID LAST DOSE GIVEN: DATE:10-15-16 TIME:8:30 a.m. NEXT DOSE DUE: DATE:10-15-16 TIME:9:00 p.m. Vitals/I & O Vital Sign - Last 24 Hours 03/23/19 03/23/19 03/23/19 03/23/19 11:00 15:00 19:27 23:00 Temp 98.4 99.2 100.4 100.7 98.4 99.2 100.4 100.7 Pulse 98 98 100 111 Resp 18 18 18 18 B/P (MAP) 143/49 (80) 147/56 (86) 130/60 (83) 130/70 (90) Pulse Ox 97 98 96 96 O2 Delivery Room Air Room Air Room Air Room Air 03/24/19 03/24/19 03/24/19 03/24/19 02:32 07:00 08:47 09:16 Temp 99.0 98.2 99.0 98.2 Pulse 97 122 99 Resp 18 18 24 B/P (MAP) 129/52 (77) 132/76 (94) 144/70 Pulse Ox 95 96 O2 Delivery Room Air Room Air Room Air Intake and Output 03/23/19 03/23/19 03/24/19 15:00 23:00 07:00 Output Total 400 ml 300 ml 450 ml Balance -400 ml -300 ml -450 ml IVA AGUILAR MD March 24, 2019 09:35
[2019-03-24 11:00] VITALS: BP 127/41
[2019-03-24] MEDS ORDERED: LIDOCAINE 2% PF 5 ML VIAL. ONE (14:32)
[2019-03-24] MEDS ORDERED: PROPOFOL 20 ML IV ONE (14:32)
--- NOTE | 2019-03-24 15:08 | PDOC4 ---
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 G--Normal. Antral biopsies re: H.pylori. D--Normal to second Kevan. well. 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 REC: Await biopsies. Continue PPI, chronically. Thanks. TONIO CLEMENS MD March 24, 2019 15:08
[2019-03-24 15:24] VITALS: BP 130/61
--- NOTE | 2019-03-24 15:31 | PDOC3 ---
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 s/p fall with central cord syndrome 2015 diabetes type 2 uncontrolled morbid obesity HTN H/o colon cancer w/ resection and chemo in 1999 - ?last colonoscopy plan monitor h/h retic count iron panel ct abd/ pelvis r/o mass transfuse for hgb < 7.0 GI CONSULT IV PROTONIX 34 MIN PT EXAM d/c planning , CHART REVIEW, > 50% OF TIME SPENT with exam, chart review, pt care coordination Vitals Vitals Vital Signs Date Time Temp Pulse Resp B/P (MAP) Pulse Ox O2 Delivery O2 Flow Rate FiO2 03/24/19 09:16 99 144/70 03/24/19 08:47 24 Room Air 03/24/19 07:00 98.2 96 98.2 Physical Exam General: Alert, Oriented X3, Cooperative, No acute distress, mild distress Lungs: Clear, Wheezing Abdomen: Normal bowel sounds, Soft, No tenderness Extremities: No cyanosis Skin: No rashes Brief Hospital Course Mr. Dos Santos is a 73 old [sex] who presented with [marked anemia, salinas's esop hagitis ] CONDITION AT DISCHARGE: Improved Discharge Medications Current Medications Pantoprazole Sodium (PROTONIX VIAL for IV PUSH) 40 mg DAILYAC IVP Last administered on 03/23/19 08:55; Start 03/22/19 at 18:30; Stop 03/23/19 at 10:27; Status DC Atorvastatin Calcium (Lipitor) 10 mg QHS PO Last administered on 03/23/19 20:55; Start 03/22/19 at 21:00 Ferrous Sulfate (Feosol) 325 mg BID PO Last administered on 03/24/19 08:44; Start 03/22/19 at 21:00 Oxycodone/ Acetaminophen (Percocet 5/325) 1 tab PRN Q6HRS PRN PO MODERATE PAIN Last administered on 03/24/19 08:47; Start 03/22/19 at 18:30 Potassium Chloride (Klor-Con) 10 meq DAILY PO Last administered on 5/9/19at 08:44; Start 03/23/19 at 09:00 Non-Formulary Medication (Alpha Lipoic Acid ) 600 mg DAILY PO ; Start 03/23/19 at 09:00; Status UNV Non-Formulary Medication (Calcium Lactate ) 250 mg 8 tabs a day PO ; Start 03/22/19 at 18:30; Status UNV Glipizide (Glucotrol) 10 mg BIDBFRMEAL PO Last administered on 03/24/19at 08:45; Start 03/23/19 at 07:30 Non-Formulary Medication (Gluc/Juan-Msm#2/ C/D3/[place]hoenix/Born (Glucosamin-Chondroiti n-Msm Tab)) 1 each DAILY PO ; Start 03/23/19 at 09:00; Status UNV Insulin Human Lispro (HumaLOG) 5 units TIDACHC SQ ; Start 03/22/19 at 21:00; Stop 03/22/19 at 21:13; Status DC Insulin Glargine (Lantus) 12 units QHS SQ ; Start 03/22/19 at 21:00; Stop 03/22/19 at 21:13; Status DC Lisinopril (Prinivil) 10 mg DAILY PO Last administered on 03/24/19 09:16; Start 03/23/19 at 09:00 Multivitamins (Thera M Plus) 1 tab DAILY PO Last administered on 03/24/19at 08:45; Start 03/23/19 at 09:00 Fish Oil (Fish Oil) 1,000 mg DAILY PO Last administered on 03/24/19 08:45; Start 03/23/19 at 09:00 Linagliptin (Tradjenta) 5 mg DAILY PO Last administered on 03/24/19 08:45; Start 03/23/19 at 09:00 Hydrochlorothiazide (Microzide) 12.5 mg DAILY PO Last administered on 03/24/19 09:18; Start 03/23/19 at 09:00 Oxycodone/ Acetaminophen (Percocet 5/325) 2 tab PRN Q6HRS PRN PO SEVERE PAIN; Start 03/22/19 at 18:45 Pantoprazole Sodium (Protonix) 40 mg DAILYAC PO Last administered on 03/24/19at 08:46; Start 03/24/19 at 07:30 Ondansetron HCl (Zofran) 4 mg PRN Q6HRS PRN IV NAUSEA/VOMITING; Start 03/24/19 at 07:00; Stop 03/24/19 at 20:00 Fentanyl Citrate (Fentanyl 2ml Vial) 25 mcg PRN Q5MIN PRN IV MILD PAIN; Start 03/24/19 at 07:00; Stop 03/24/19 at 20:00 Fentanyl Citrate (Fentanyl 2ml Vial) 50 mcg PRN Q5MIN PRN IV MODERATE TO SEVERE PAIN; Start 03/24/19 at 07:00; Stop 03/24/19 at 20:00 Morphine Sulfate (Morphine Sulfate) 1 mg PRN Q10MIN PRN IV SEVERE PAIN; Start 03/24/19 at 07:00; Stop 03/24/19 at 20:00 Ringer's Solution 1,000 ml @ 30 mls/hr Q24H IV Last administered on 03/24/19at 14:38; Start 03/24/19 at 07:00; Stop 03/24/19 at 18:59 Lidocaine HCl (Xylocaine-Mpf 1% 2ml Vial) 2 ml PRN 1X PRN ID IV START; Start 03/24/19 at 07:00; Stop 03/24/19 at 20:00 Hydromorphone HCl (Dilaudid) 0.5 mg PRN Q10MIN PRN IV SEV PAIN, Second choice; Start 03/24/19 at 07:00; Stop 03/24/19 at 20:00 Prochlorperazine Edisylate (Compazine) 5 mg PACU PRN PRN IV NAUSEA, MRX1; Start 03/24/19 at 07:00; Stop 03/24/19 at 20:00 Insulin Human Lispro (HumaLOG) 0-5 UNITS TIDWMEALS SQ Last administered on 03/23/19at 16:59; Start 03/23/19 at 17:00 Dextrose (Dextrose 50%-Water Syringe) 12.5 gm PRN Q15MIN PRN IV SEE COMMENTS; Start 03/23/19 at 16:30 Propofol 20 ml @ As Directed STK-MED ONCE IV ; Start 03/24/19 at 14:32; Stop 03/24/19 at 14:33; Status DC Lidocaine HCl (Lidocaine Pf 2% Vial) 5 ml STK-MED ONCE .ROUTE ; Start 03/24/19 at 14:32; Stop 03/24/19 at 14:33; Status DC Active Scripts Active Reported Lisinopril-Hctz 10-12.5 Mg Tab (Lisinopril/Hydrochlorothiazide) 1 Each Tablet 1 Tab PO DAILY Robaxin-750 (Methocarbamol) 750 Mg Tablet 750 Mg PO PRN Q8HRS LAST DOSE GIVEN: DATE:10-15-16 TIME:8:30 a.m. NEXT DOSE DUE: DATE:10-15-16 TIME:4:30 p.m. if needed for muscle spasms Percocet 5-325 Mg Tablet (Oxycodone/Acetaminophen) 1 Each Tablet 1-2 Tab PO Q4-6HRS No pain medication given this morning my take as needed for pain at any time Medrol (Methylprednisolone) 4 Mg Tab.ds.pk 1 Pkg PO UD Take as directed Allopurinol 100 Mg Tablet 1 Tab PO DAILY LAST DOSE GIVEN: DATE:10-15-16 TIME:8:30 a.m. NEXT DOSE DUE: DATE:10-16-16 TIME:8:30 a.m. Psoqzvdbju-Lfvbtsyrflx-Pqh Tab (Gluc/Juan-Msm#2/C/D3/[place]enix/Born) 1 Each Tablet 1 Each PO DAILY Not givne while in hosp. May resume at home as directed. Alpha Lipoic Acid 300 Mg Capsule 600 Mg PO DAILY Not given while in hosp. May resume at home as directed. Klor-Con 10 (Potassium Chloride) 10 Meq Tablet.er 1 Tab PO DAILY LAST DOSE GIVEN: DATE:10-15-16 TIME:8:30 a.m. NEXT DOSE DUE: DATE:10-16-16 TIME:8:30 a.m. Lipitor (Atorvastatin Calcium) 10 Mg Tablet 1 Tab PO QHS Not given while in hosp. May resume at home as directed Ferrous Sulfate 325 Mg Tablet 1 Tab PO BID LAST DOSE GIVEN: DATE:10-15-16 TIME:9:30 a.m. NEXT DOSE DUE: DATE:10-15-16 TIME:5:00 p.m. Calcium Lactate 650 Mg Tablet 250 Mg PO 8 TABS A DAY Not given whilein hosp. May resume at home as directed Fish Oil ([place]-3 Fatty Acids) 500 Mg Capsule.dr 1,000 Mg PO DAILY Not given while in hosp. May resume at home as directed Aspir 81 (Aspirin) 81 Mg Tablet.dr 1 Tab PO DAILY LAST DOSE GIVEN: DATE:10-15-16 TIME:9:00 a.m. NEXT DOSE DUE: DATE:10-16-16 TIME:9:00 a.m. Multivitamins (Multivitamin) 1 Each Tablet 1 Tab PO DAILY LAST DOSE GIVEN: DATE:10-15-16 TIME:8:30 a.m. NEXT DOSE DUE: DATE:10-16-16 TIME:8:30 a.m. Januvia (Sitagliptin Phosphate) 100 Mg Tablet 1 Tab PO DAILY LAST DOSE GIVEN: DATE:10-15-16 TIME:8:30 a.m. NEXT DOSE DUE: DATE:10-16-16 TIME:8;30 a.m. Lisinopril-Hctz 20-25 Mg Tab (Lisinopril/Hydrochlorothiazide) 1 Each Tablet 1 Tab PO DAILY LAST DOSE GIVEN: DATE:10-15-16 TIME:8:30 a.m. NEXT DOSE DUE: DATE:10-16-16 TIME:8:30 a.m. Metformin Hcl 1,000 Mg Tablet 1 Tab PO BID LAST DOSE GIVEN: DATE:10-15-16 TIME:9:00 a.m. NEXT DOSE DUE: DATE:10-15-16 TIME:5:00 p.m. Glipizide 10 Mg Tablet 1 Tab PO BID LAST DOSE GIVEN: DATE:10-15-16 TIME:8:30 a.m. NEXT DOSE DUE: DATE:10-15-16 TIME:5:00 p.m. Gabapentin (Gabapentin) 300 Mg Capsule 300 Mg PO BID LAST DOSE GIVEN: DATE:10-15-16 TIME:8:30 a.m. NEXT DOSE DUE: DATE:10-15-16 TIME:9:00 p.m. Vital Signs Vital Signs Date Time Temp Pulse Resp B/P (MAP) Pulse Ox O2 Delivery O2 Flow Rate FiO2 03/24/19 15:24 97.5 92 20 130/61 96 Room Air 97.5 03/24/19 15:05 3 Labs Laboratory Tests Test 03/22/19 18:13 03/22/19 21:15 03/22/19 23:58 03/23/19 07:25 Glucose (Fingerstick) 49 mg/dL (70-99) 75 mg/dL (70-99) 114 mg/dL (70-99) White Blood Count 9.8 x10^3/uL (4.0-11.0) Red Blood Count 2.57 x10^6/uL (4.30-5.70) Hemoglobin 7.4 g/dL (13.0-17.5) Hematocrit 22.6 % (39.0-53.0) Mean Corpuscular Volume 88 fL (79-100) Mean Corpuscular Hemoglobin 29 pg (25-35) Mean Corpuscular Hemoglobin Concent 33 g/dL (31-37) Red Cell Distribution Width 15.4 % (11.5-14.5) Platelet Count 519 x10^3/uL (140-400) Neutrophils (%) (Auto) 71 % (31-73) Lymphocytes (%) (Auto) 20 % (24-48) Monocytes (%) (Auto) 7 % (0-9) Eosinophils (%) (Auto) 3 % (0-3) Basophils (%) (Auto) 1 % (0-3) Neutrophils # (Auto) 6.9 x10^3uL (1.8-7.7) Lymphocytes # (Auto) 1.9 x10^3/uL (1.0-4.8) Monocytes # (Auto) 0.7 x10^3/uL (0.0-1.1) Eosinophils # (Auto) 0.2 x10^3/uL (0.0-0.7) Basophils # (Auto) 0.1 x10^3/uL (0.0-0.2) Sodium Level 137 mmol/L (136-145) Potassium Level 4.1 mmol/L (3.5-5.1) Chloride Level 100 mmol/L (98-107) Carbon Dioxide Level 28 mmol/L (21-32) Anion Gap 9 (6-14) Blood Urea Nitrogen 12 mg/dL (8-26) Creatinine 0.7 mg/dL (0.7-1.3) Estimated GFR (Cockcroft-Gault) 110.9 Glucose Level 128 mg/dL (70-99) Calcium Level 9.1 mg/dL (8.5-10.1) Test 03/23/19 07:57 03/23/19 11:33 03/23/19 16:30 03/23/19 19:57 Glucose (Fingerstick) 138 mg/dL (70-99) 262 mg/dL (70-99) 195 mg/dL (70-99) 169 mg/dL (70-99) Test 03/24/19 07:00 03/24/19 07:34 03/24/19 11:28 White Blood Count 9.8 x10^3/uL (4.0-11.0) Red Blood Count 2.76 x10^6/uL (4.30-5.70) Hemoglobin 8.1 g/dL (13.0-17.5) Hematocrit 24.5 % (39.0-53.0) Mean Corpuscular Volume 89 fL (79-100) Mean Corpuscular Hemoglobin 29 pg (25-35) Mean Corpuscular Hemoglobin Concent 33 g/dL (31-37) Red Cell Distribution Width 15.8 % (11.5-14.5) Platelet Count 566 x10^3/uL (140-400) Neutrophils (%) (Auto) 74 % (31-73) Lymphocytes (%) (Auto) 15 % (24-48) Monocytes (%) (Auto) 9 % (0-9) Eosinophils (%) (Auto) 1 % (0-3) Basophils (%) (Auto) 1 % (0-3) Neutrophils # (Auto) 7.3 x10^3uL (1.8-7.7) Lymphocytes # (Auto) 1.5 x10^3/uL (1.0-4.8) Monocytes # (Auto) 0.9 x10^3/uL (0.0-1.1) Eosinophils # (Auto) 0.1 x10^3/uL (0.0-0.7) Basophils # (Auto) 0.1 x10^3/uL (0.0-0.2) Sodium Level 138 mmol/L (136-145) Potassium Level 3.9 mmol/L (3.5-5.1) Chloride Level 99 mmol/L (98-107) Carbon Dioxide Level 28 mmol/L (21-32) Anion Gap 11 (6-14) Blood Urea Nitrogen 11 mg/dL (8-26) Creatinine 0.7 mg/dL (0.7-1.3) Estimated GFR (Cockcroft-Gault) 110.9 Glucose Level 176 mg/dL (70-99) Calcium Level 9.1 mg/dL (8.5-10.1) Glucose (Fingerstick) 173 mg/dL (70-99) 216 mg/dL (70-99) Laboratory Tests Test 03/23/19 16:30 03/23/19 19:57 03/24/19 07:00 03/24/19 07:34 Glucose (Fingerstick) 195 mg/dL (70-99) 169 mg/dL (70-99) 173 mg/dL (70-99) White Blood Count 9.8 x10^3/uL (4.0-11.0) Red Blood Count 2.76 x10^6/uL (4.30-5.70) Hemoglobin 8.1 g/dL (13.0-17.5) Hematocrit 24.5 % (39.0-53.0) Mean Corpuscular Volume 89 fL (79-100) Mean Corpuscular Hemoglobin 29 pg (25-35) Mean Corpuscular Hemoglobin Concent 33 g/dL (31-37) Red Cell Distribution Width 15.8 % (11.5-14.5) Platelet Count 566 x10^3/uL (140-400) Neutrophils (%) (Auto) 74 % (31-73) Lymphocytes (%) (Auto) 15 % (24-48) Monocytes (%) (Auto) 9 % (0-9) Eosinophils (%) (Auto) 1 % (0-3) Basophils (%) (Auto) 1 % (0-3) Neutrophils # (Auto) 7.3 x10^3uL (1.8-7.7) Lymphocytes # (Auto) 1.5 x10^3/uL (1.0-4.8) Monocytes # (Auto) 0.9 x10^3/uL (0.0-1.1) Eosinophils # (Auto) 0.1 x10^3/uL (0.0-0.7) Basophils # (Auto) 0.1 x10^3/uL (0.0-0.2) Sodium Level 138 mmol/L (136-145) Potassium Level 3.9 mmol/L (3.5-5.1) Chloride Level 99 mmol/L (98-107) Carbon Dioxide Level 28 mmol/L (21-32) Anion Gap 11 (6-14) Blood Urea Nitrogen 11 mg/dL (8-26) Creatinine 0.7 mg/dL (0.7-1.3) Estimated GFR (Cockcroft-Gault) 110.9 Glucose Level 176 mg/dL (70-99) Calcium Level 9.1 mg/dL (8.5-10.1) Test 03/24/19 11:28 Glucose (Fingerstick) 216 mg/dL (70-99) Allergies Allergies Coded Allergies Type Severity Reaction Last Updated Verified No Known Drug Allergies 03/24/19 No Disposition/Orders: Other (back to snf) Patient Instructions d/c planning 38 min IVA AGUILAR MD March 24, 2019 15:31
[2019-03-24] MEDS ORDERED: Pantoprazole PO (15:34)
--- NOTE | 2019-03-24 15:35 | SNU/HH DC ---
DISCHARGE ORDERS DISCHARGE INFORMATION: CONDITION ON DISCHARGE: Stable CODE STATUS: Code Status: Full HALFWAY: SNF STAY <30 DAYS: Yes HOSPICE: HOSPICE: No HOSPICE EVAL & TREAT: No POST DISCHARGE ORDERS: ACTIVITY ORDERS: Activity as tolerated, Progressive ambulation WEIGHT BEARING STATUS: Full weight bearing, As tolerated BATHING ORDERS: Shower-keep dressing dry, No Tub Bath until see Dr. BURGER AFTER DISCHARGE: ADA WOUND/INCISION CARE: Ice to area for comfort, Keep wound/cast CDI, Change dressing CHECKS AFTER DISCHARGE: CHECKS AFTER DISCHARGE: Check blood sugar, ac/hs TREATMENT/EQUIPMENT ORDERS: ADAPTIVE EQUIPMENT NEEDED: None Physical Therapy For: Evalulation/Treatment Occupational Therapy For: Evaluation/Treatment Speech Language Pathology For: Evaluation/Treatment DISCHARGE MEDICATIONS: Home Meds Reported Medications Lisinopril/Hydrochlorothiazide (LISINOPRIL-HCTZ 10-12.5 MG TAB) 1 Each Tablet, 1 TAB PO DAILY for Blood Pressure, #30 TAB 5 Refills 03/22/19 Methocarbamol (ROBAXIN-750) 750 Mg Tablet, 750 MG PO PRN Q8HRS for muscle spasm s, TAB LAST DOSE GIVEN: DATE:10-15-16 TIME:8:30 a.m. NEXT DOSE DUE: DATE:10-15-16 TIME:4:30 p.m. if needed for muscle spasms 10/15/16 Oxycodone/Apap 5-325 (PERCOCET 5-325 MG TABLET ) 1 Each Tablet, 1-2 TAB PO Q4- 6HRS for pain relief, #40 TAB No pain medication given this morning my take as needed for pain at any time 10/15/16 Methylprednisolone (MEDROL) 4 Mg Tab.ds.pk, 1 PKG PO UD for enhance healing, #1 PKG Take as directed 10/15/16 Allopurinol (ALLOPURINOL) 100 Mg Tablet, 1 TAB PO DAILY for prevent gout, #30 TAB 5 Refills LAST DOSE GIVEN: DATE:10-15-16 TIME:8:30 a.m. NEXT DOSE DUE: DATE:10-16-16 TIME:8:30 a.m. 10/07/16 Gluc/Juan-Msm#2/C/D3/[place]/Born (ZEGZKKDOVI-JSXPZZEERAG-WZY TAB) 1 Each Tablet, 1 EACH PO DAILY for joint health supplement Not givne while in hosp. May resume at home as directed. 10/07/16 Alpha Lipoic Acid (ALPHA LIPOIC ACID) 300 Mg Capsule, 600 MG PO DAILY for alpha lipoc acid supplement Not given while in hosp. May resume at home as directed. 10/07/16 Potassium Chloride (KLOR-CON 10) 10 Meq Tablet.er, 1 TAB PO DAILY for potassium supplement, #30 TAB 5 Refills LAST DOSE GIVEN: DATE:10-15-16 TIME:8:30 a.m. NEXT DOSE DUE: DATE:10-16-16 TIME:8:30 a.m. 10/07/16 Atorvastatin Calcium (LIPITOR) 10 Mg Tablet, 1 TAB PO QHS for high cholesterol, #90 TAB 1 Refill Not given while in hosp. May resume at home as directed 10/07/16 Ferrous Sulfate (FERROUS SULFATE) 325 Mg Tablet, 1 TAB PO BID for iron supplement, #60 TAB 3 Refills LAST DOSE GIVEN: DATE:10-15-16 TIME:9:30 a.m. NEXT DOSE DUE: DATE:10-15-16 TIME:5:00 p.m. 10/07/16 Calcium Lactate (CALCIUM LACTATE) 650 Mg Tablet, 250 MG PO 8 tabs a day for calcium supplement Not given whilein hosp. May resume at home as directed 10/07/16 [place]-3 Fatty Acids (FISH OIL) 500 Mg Capsule.dr, 1000 MG PO DAILY for heart health Not given while in hosp. May resume at home as directed 07/26/16 Aspirin (ASPIR 81) 81 Mg Tablet.dr, 1 TAB PO DAILY for heart health, #30 TAB 5 Refills LAST DOSE GIVEN: DATE:10-15-16 TIME:9:00 a.m. NEXT DOSE DUE: DATE:10-16-16 TIME:9:00 a.m. 07/26/16 Multivitamin (MULTIVITAMINS) 1 Each Tablet, 1 TAB PO DAILY for vitamin supplement, #90 TAB 3 Refills LAST DOSE GIVEN: DATE:10-15-16 TIME:8:30 a.m. NEXT DOSE DUE: DATE:10-16-16 TIME:8:30 a.m. 07/26/16 Sitagliptin Phosphate (JANUVIA) 100 Mg Tablet, 1 TAB PO DAILY for antidiabetic, #30 TAB 5 Refills LAST DOSE GIVEN: DATE:10-15-16 TIME:8:30 a.m. NEXT DOSE DUE: DATE:10-16-16 TIME:8;30 a.m. 07/26/16 Lisinopril/Hydrochlorothiazide (LISINOPRIL-HCTZ 20-25 MG TAB) 1 Each Tablet, 1 TAB PO DAILY for hypertension, #30 TAB 5 Refills LAST DOSE GIVEN: DATE:10-15-16 TIME:8:30 a.m. NEXT DOSE DUE: DATE:10-16-16 TIME:8:30 a.m. 07/26/16 Metformin Hcl (METFORMIN HCL) 1,000 Mg Tablet, 1 TAB PO BID for antidiabetic, #60 TAB 5 Refills LAST DOSE GIVEN: DATE:10-15-16 TIME:9:00 a.m. NEXT DOSE DUE: DATE:10-15-16 TIME:5:00 p.m. 07/26/16 Glipizide (GLIPIZIDE) 10 Mg Tablet, 1 TAB PO BID for antidiabetic, #60 TAB 5 Refills LAST DOSE GIVEN: DATE:10-15-16 TIME:8:30 a.m. NEXT DOSE DUE: DATE:10-15-16 TIME:5:00 p.m. 07/26/16 Gabapentin (GABAPENTIN ) 300 Mg Capsule, 300 MG PO BID for nerve pain, CAP LAST DOSE GIVEN: DATE:10-15-16 TIME:8:30 a.m. NEXT DOSE DUE: DATE:10-15-16 TIME:9:00 p.m. 07/26/16 IVA AGUILAR MD March 24, 2019 15:35
--- NOTE | 2019-03-24 16:02 | NUR ---
SW following pt. Spoke with DON at [facility] who reported they do not have transportation for today. SW explained pt has dc order and SW will arrange transportation. Orders faxed to [facility] and SW arranged transportation via [employer] between [phone]. JUSTIN RN and Packet on chart.
--- NOTE | 2019-03-24 16:58 | NUR ---
Discharge Note: NELSY CASIANO Discharge instructions and discharge home medications reviewed with Patient and a copy given. All questions have been answered and understanding verbalized. Discontinued lines and drains: PERIPHERAL IV. Patient discharged to Rehab Facility with Ambulance Personnel via Wheelchair
--- NOTE | 2019-03-28 14:06 | PATHOLOGY ---
[facility] Accession Number: [id number] . 01 Material submitted: . PART A: esophagus - BIOPSY DISTAL ESOPHAGUS. Modifiers: distal PART B: stomach - BIOPSY ANTRUM . 01 Clinical history: . Anemia . 02 Diagnosis: A. 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 . B. Gastric biopsies, antrum: - Chronic gastritis, mild. (JPM:cony; 03/28/2019) QMS/03/28/2019 . 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 There is focal mild dysplasia. There is no squamous esophageal mucosa identified. . Sections of the gastric biopsy reveal segments of gastric body and antral/body transition mucosa showing congestion and mild chronic inflammation. A properly controlled immunoperoxidase stain for Helicobacter is negative for Helicobacter organisms. There is no evidence of malignancy. (JPM:cony; 03/28/2019) . . Special stain performed: Immunoperoxidase stain for Helicobacter on B1. . 02 Electronically signed: . Reed Lizama MD, Pathologist NPI- [id number] . 01 Gross description: . A. The specimen is received in formalin, labeled "Caleb Dos Santos, BX distal esophagus", is an irregular fragment of álvarez-oliveira tissue measuring 0.6 cm in greatest dimension, entirely submitted in A1. . B. The specimen is received in formalin, labeled "Caleb Dos Santos, BX antrum", are two irregular fragments of álvarez soft tissue measuring 0.3 cm and is 0.7 cm in greatest dimension, entirely submitted in B1. (SWS; 03/25/2019) . SHS/SHS . 02 Pathologist provided ICD-10: K20.9, K22.710, K29.50 . 02 CPT . 060098, 297430, Y54930 Specimen Comment: A courtesy copy of this report has been sent to Specimen Comment: [phone], , . Specimen Comment: Report sent to DR JOHNSON,DR AGUILAR / DR STEEL Performed at: 01 [facility] [address] [address], [place] [id number] MD Robert Dial MD Phone: [phone] Performed at: 02 [facility] [address] [place] [id number] MD Reed Lizama MD Phone: [phone]
== END 2019-03-24 17:00 | DRG 391 ==
LOC: ER 11:28 → 5 NORTH 13:07
PROVIDERS: ADMIT Family Medicine; ATTEND Family Medicine
PROC: 0DB68ZX Excision of Stomach, Via Natural or Artificial Opening Endoscopic, Diagnostic (ICD-10-PCS; 2019-03-24)
PROC: 0DB58ZX Excision of Esophagus, Via Natural or Artificial Opening Endoscopic, Diagnostic (ICD-10-PCS; principal; 2019-03-24 15:00)
DX: K20.8 Other esophagitis (principal); K27.4 Chronic or unspecified peptic ulcer, site unspecified, with hemorrhage; E43 Unspecified severe protein-calorie malnutrition; K22.710 Barrett's esophagus with low grade dysplasia; D64.9 Anemia, unspecified; I10 Essential (primary) hypertension; E11.9 Type 2 diabetes mellitus without complications; E78.00 Pure hypercholesterolemia, unspecified; G47.33 Obstructive sleep apnea (adult) (pediatric); Z96.659 Presence of unspecified artificial knee joint; M48.02 Spinal stenosis, cervical region; E66.01 Morbid (severe) obesity due to excess calories; E78.5 Hyperlipidemia, unspecified; Z85.038 Personal history of other malignant neoplasm of large intestine; Z90.49 Acquired absence of other specified parts of digestive tract; Z99.3 Dependence on wheelchair; Z88.8 Allergy status to other drugs, medicaments and biological substances; Z82.49 Family history of ischemic heart disease and other diseases of the circulatory system; Z83.71 Family history of colonic polyps; Z68.36 Body mass index [BMI] 36.0-36.9, adult; Z92.21 Personal history of antineoplastic chemotherapy; Z79.82 Long term (current) use of aspirin; T39.395A Adverse effect of other nonsteroidal anti-inflammatory drugs [NSAID], initial encounter
CPT/HCPCS: 36415; 43239; 80048; 80053; 81001; 82962; 83540; 83550; 83880; 84484; 85025; 85045; 85610; 85730; 86850; 86900; 86901; 88305; 88342; C9113; J1815; J2001; J2704; J7120; 99285-25

== ENCOUNTER 2019-04-01 14:03 | Inpatient (IN) | payer MEDICARE ==
[~2019-04-01] VITALS: Ht 175.3 cm; Wt 114.0 kg
[~2019-04-01 14:03] MED LIST changes: +LISI1TAB3 PO; +Pantoprazole PO
[2019-04-01 15:36] LABS: BASO # 0.1 x10^3/uL (0.0-0.2); BASO % 1 % (0-3); EOS % 0 % (0-3); HEMATOCRIT 22.9 % (39.0-53.0); HEMOGLOBIN 7.5 g/dL (13.0-17.5); LYMPH # 1.6 x10^3/uL (1.0-4.8); LYMPH % 12 % (24-48); MEAN CORPUSCULAR HEMOGLOBIN 29 pg (25-35); MEAN CORPUSCULAR HGB CONC 33 g/dL (31-37); MEAN CORPUSCULAR VOLUME 88 fL (79-100); MONO % 8 % (0-9); NEUT # 10.7 x10^3uL (1.8-7.7); NEUT % 79 % (31-73); PLATELET COUNT 671 x10^3/uL (140-400); RED BLOOD COUNT 2.61 x10^6/uL (4.30-5.70); RED CELL DISTRIBUTION WIDTH 15.6 % (11.5-14.5); WHITE BLOOD COUNT 13.5 x10^3/uL (4.0-11.0)
[2019-04-01 15:44] LABS: CALCIUM 8.9 mg/dL (8.5-10.1); CREATININE 0.9 mg/dL (0.7-1.3); GFR 82.9; POTASSIUM 4.7 mmol/L (3.5-5.1)
[2019-04-01] MEDS ORDERED: LORazepam 0.5 MG TABLET PO PRN (15:45)
[2019-04-01] MEDS ORDERED: DOCUSATE SODIUM 100 MG CAPSULE. PO PRN (15:45)
[2019-04-01] MEDS ORDERED: ONDANSETRON PF 4 MG/2 ML VIAL. IV PRN (15:45)
[2019-04-01] MEDS ORDERED: ZOLPIDEM 5 MG TABLET. PO PRN (15:45)
[2019-04-01] MEDS ORDERED: ACETAMINOPHEN 325 MG TABLET. PO PRN (15:45)
[2019-04-01] MEDS ORDERED: CALCIUM LACTATE PO SCH (15:45)
[2019-04-01] MEDS ORDERED: METHOCARBAMOL 750 MG TABLET PO PRN (15:45)
[2019-04-01] MEDS ORDERED: ALBUTEROL SULFATE 2.5 MG/3 ML NEBU. NEB PRN (15:45)
[2019-04-01] MEDS ORDERED: DEXTROSE 50% 25 GM / 50ML DISP.SYRIN. IV PRN ×2 (15:45→17:30)
[2019-04-01] MEDS ORDERED: guaiFENesin ORAL 200 MG/10 ML LIQUID. PO PRN (15:45)
[2019-04-01 15:50] LABS: ALBUMIN 2.3 g/dL (3.4-5.0); ALBUMIN/GLOBULIN RATIO 0.4 (1.0-1.7); TOTAL BILIRUBIN 0.4 mg/dL (0.2-1.0); TOTAL PROTEIN 7.6 g/dL (6.4-8.2)
--- NOTE | 2019-04-01 16:01 | PHYS DOC ---
Past Medical History Past Medical History: Anemia, Arthritis, Cancer, CHF, Diabetes-Type I, Diabetes-Type II, High Cholesterol, Heart Disease, Hypertension, Other Additional Past Medical Histor: COLON CA,SLEEP APNEA,RA,NEUROPATHY,AORTIC VALVE REPLACEMENT Past Surgical History: Cholecystectomy, Other Additional Past Surgical Histo: QUADRICEPS REPAIR,COLON RESECTION,HERNIA,BILAT SHOULDER,KNEE Alcohol Use: None Drug Use: None Adult General Chief Complaint Chief Complaint: ABNORMAL LABS [facility] Patient is a 73 year old wheelchair-bound male resident of rehabilitation who p resents with complaining of abnormal lab. Patient had history of chronic anemia and his blood tests showed hemoglobin of 6.8. Patient denies hematemesis and melena and hematuria Patient was seen in this emergency room with hemoglobin of 7.2 and had admission without blood transfusion. Review of Systems Review of Systems Constitutional: Denies fever or chills [] Eyes: Denies change in visual acuity, redness, or eye pain [] HENT: Denies nasal congestion or sore throat [] Respiratory: Denies cough or shortness of breath [] Cardiovascular: No additional information not addressed in HPI [] GI: Denies abdominal pain, nausea, vomiting, bloody stools or diarrhea [] : Denies dysuria or hematuria [] Musculoskeletal: Denies back pain, reports joint pain [] Integument: Denies rash or skin lesions [] Neurologic: Denies headache, focal weakness or sensory changes [] Endocrine: Denies polyuria or polydipsia [] All other systems were reviewed and found to be within normal limits, except as documented in this note. Allergies Allergies Allergies Coded Allergies Type Severity Reaction Last Updated Verified No Known Drug Allergies 03/24/19 No Physical Exam Physical Exam Constitutional: Well developed, well nourished, no acute distress, non-toxic appearance, obese, pallor. [] HENT: Normocephalic, atraumatic, oropharynx moist. Eyes: PERRLA, EOMI, conjunctiva normal, no discharge. [] Neck: Normal range of motion, no tenderness, supple, no stridor. [] Cardiovascular:Heart rate regular rhythm, no murmur [] Lungs & Thorax: Bilateral breath sounds clear to auscultation [] Abdomen: Bowel sounds normal, soft, no tenderness, no masses, no pulsatile masses. [] Skin: Warm, dry, no erythema, no rash. [] Back: No tenderness, no CVA tenderness. [] Extremities: Left lower extremity with knee brace in place with moderate knee effusion. Neurologic: Alert and oriented X 3, lower extremity weakness as a chronic problem, Current Patient Data Vital Signs Vital Signs Date Time Temp Pulse Resp B/P (MAP) Pulse Ox O2 Delivery O2 Flow Rate FiO2 04/01/19 15:29 106 139/64 (89) 99 Room Air 04/01/19 14:59 28 04/01/19 14:37 99.8 99.8 Lab Values Laboratory Tests Test 04/01/19 15:25 White Blood Count 13.5 x10^3/uL (4.0-11.0) H Red Blood Count 2.61 x10^6/uL (4.30-5.70) L Hemoglobin 7.5 g/dL (13.0-17.5) L Hematocrit 22.9 % (39.0-53.0) L Mean Corpuscular Volume 88 fL (79-100) Mean Corpuscular Hemoglobin 29 pg (25-35) Mean Corpuscular Hemoglobin Concent 33 g/dL (31-37) Red Cell Distribution Width 15.6 % (11.5-14.5) H Platelet Count 671 x10^3/uL (140-400) H Neutrophils (%) (Auto) 79 % (31-73) H Lymphocytes (%) (Auto) 12 % (24-48) L Monocytes (%) (Auto) 8 % (0-9) Eosinophils (%) (Auto) 0 % (0-3) Basophils (%) (Auto) 1 % (0-3) Neutrophils # (Auto) 10.7 x10^3uL (1.8-7.7) H Lymphocytes # (Auto) 1.6 x10^3/uL (1.0-4.8) Monocytes # (Auto) 1.0 x10^3/uL (0.0-1.1) Eosinophils # (Auto) 0.0 x10^3/uL (0.0-0.7) Basophils # (Auto) 0.1 x10^3/uL (0.0-0.2) Prothrombin Time 15.0 SEC (11.7-14.0) H Prothrombin Time INR 1.2 (0.8-1.1) H PTT 34 SEC (24-38) Sodium Level 135 mmol/L (136-145) L Potassium Level 4.7 mmol/L (3.5-5.1) Chloride Level 98 mmol/L (98-107) Carbon Dioxide Level 25 mmol/L (21-32) Anion Gap 12 (6-14) Blood Urea Nitrogen 19 mg/dL (8-26) Creatinine 0.9 mg/dL (0.7-1.3) Estimated GFR (Cockcroft-Gault) 82.9 BUN/Creatinine Ratio 21 (6-20) H Glucose Level 46 mg/dL (70-99) L Calcium Level 8.9 mg/dL (8.5-10.1) Total Bilirubin 0.4 mg/dL (0.2-1.0) Aspartate Amino Transferase (AST) 35 U/L (15-37) Alanine Aminotransferase (ALT) 39 U/L (16-63) Alkaline Phosphatase 95 U/L (46-116) Total Protein 7.6 g/dL (6.4-8.2) Albumin 2.3 g/dL (3.4-5.0) L Albumin/Globulin Ratio 0.4 (1.0-1.7) L Laboratory Tests 04/01/19 15:25 Laboratory Tests 04/01/19 15:25 EKG EKG [] Radiology/Procedures Radiology/Procedures [] Course & Med Decision Making Course & Med Decision Making Pertinent Labs studies reviewed. (See chart for details) Evaluation of patient in ER showed 73-year-old male patient with history of chronic anemia presented here because of multiple 6.8. Patient has chronic anemia without resent hematemesis or melena or hematuria. Patient had hemoglobin of 7.5 in ER.patient also had blood sugar of 45 and oral treatment was given. Patient requiring admission for further evaluation and treatment. Discussed with Dr. Canlaes who is in agreement with admission. Discussed findings and plan with patient and family, who acknowledge understanding and agreement. Dragon Disclaimer Dragon Disclaimer This electronic medical record was generated, in whole or in part, using a voice recognition dictation system. Departure Departure Impression: Primary Impression: Anemia Additional Impression: Hypoglycemia Disposition: ADMITTED INPATIENT (at 1532) Admitting Physician: Other (Dr. Canales accepted admission at 1532) Condition: STABLE Referrals: FORTINO JOHNSON (PCP) Problem Qualifiers Primary Impression: Anemia Anemia type: unspecified type Qualified Codes: D64.9 - Anemia, unspecified GREG STEEL MD April 01, 2019 16:00
[2019-04-01] MEDS: glipiZIDE 5 MG TABLET PO SCH (16:30)
[2019-04-01] MEDS: INSULIN LISPRO 300 UNITS/3 ML INSULN.PEN. SQ SCH (17:00)
[2019-04-01] MEDS ORDERED: FERROUS SULFATE 325 MG TABLET. PO SCH (17:00)
[2019-04-01] MEDS: PANTOPRAZOLE IV PUSH 40 MG VIAL. IVP SCH (17:38)
[2019-04-01] MEDS: IV NORMAL SALINE 1000ML BAG 1,000 ML IV SCH (17:38)
[2019-04-01 19:20] VITALS: BP 132/53
[2019-04-01] MEDS: GABAPENTIN 300 MG CAPSULE. PO SCH (21:13)
[2019-04-01] MEDS: ATORVASTATIN CALCIUM 10 MG TABLET. PO SCH (21:13)
[2019-04-01] MEDS: oxyCODONE/APAP 5/325 1 TAB TABLET PO PRN (21:40)
[2019-04-01 23:15] VITALS: BP 119/48
--- NOTE | 2019-04-01 23:56 | PDOC1 ---
History and Physical Date of Admission Date of Admission 04/01/2019 Identification/Chief Complaint Chief Complaint i was feeling weak Problems: (1) Anemia Source Source: Chart review, Patient History of Present Illness History of Present Illness Patient is a 73-year-old gentleman with multiple comorbidities including history of colon cancer diabetes mellitus type 2 chronic anemia arthritis was in his usual state of health at the rehabilitation facility where he resides with and apparently a hemoglobin level was checked and was found to be 6.8. Patient denies hematemesis no melanotic stools no hematuria nor evidence of active bleeding was reported by the patient. Noticed that due to his wheelchair bound status the patient has a chronic decubitus ulcers but this is not bleeding either. Repeat laboratory data in the emergency department showed a hemoglobin of 7.2. Patient feels more weak than usual but no shortness of breath no palpitations no chest pain or pressure was reported. Patient denies lightheadedness no headache no pica has been reported. The patient denies nausea 5 dysphagia no recent we ight loss either no abdominal pain reported. Patient denies urinary symptoms. We have been asked to admit the patient for further evaluation of his anemia Of note is that the patient had a recent endoscopy last week as part of his evaluation during that hospital stay. Dr. 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 G--Normal. Antral biopsies re: H.pylori. D--Normal to second Kevan. well. 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 REC: Await biopsies. Continue PPI, chronically. Past Medical History Cardiovascular: HTN GI: No pertinent hx Heme/Onc: Cancer Hepatobiliary: No pertinent hx Psych: No pertinent hx Infectious disease: No pertinent hx Endocrine: Diabetes Past Surgical History Past Surgical History: Total knee replacement, Colon Resection Family History Family History: No Significant, High Cholestrol, Hypertension Social History ALCOHOL: none Drugs: None Current Problem List Problem List Problems Medical Problems: (1) Hypoglycemia Status: Acute Current Medications Current Medications Current Medications Medications (Trade) Dose Ordered Sig/Elodia Start Time Stop Time Status Last Admin Dose Admin Acetaminophen (Tylenol) 650 mg PRN Q4HRS PRN 5/17/19 15:45 Albuterol Sulfate (Ventolin Neb Soln) 2.5 mg PRN Q4HRS PRN 04/01/19 15:45 Atorvastatin Calcium (Lipitor) 10 mg QHS 04/01/19 21:00 04/01/19 21:13 10 MG Dextrose (Dextrose 50%-Water Syringe) 12.5 gm PRN Q15MIN PRN 04/01/19 17:30 Docusate Sodium (Colace) 100 mg PRN BID PRN 04/01/19 15:45 Ferrous Sulfate (Feosol) 325 mg BIDWMEALS 04/01/19 17:00 04/01/19 17:38 325 MG Fish Oil (Fish Oil) 1,000 mg DAILY 04/02/19 09:00 Gabapentin (Neurontin) 300 mg BID 04/01/19 21:00 04/01/19 21:13 300 MG Glipizide (Glucotrol) 10 mg BIDBFRMEAL 04/01/19 16:30 Guaifenesin (Robitussin) 200 mg PRN Q4HRS PRN 04/01/19 15:45 Hydrochlorothiazide (Microzide) 12.5 mg DAILY 04/02/19 09:00 Insulin Human Lispro (HumaLOG) 0-7 UNITS TIDWMEALS 04/01/19 17:00 Linagliptin (Tradjenta) 5 mg DAILY 04/02/19 09:00 Lisinopril (Prinivil) 10 mg DAILY 04/02/19 09:00 Lorazepam (Ativan) 0.5 mg PRN Q4HRS PRN 04/01/19 15:45 Methocarbamol (Robaxin) 750 mg PRN Q8HRS PRN 04/01/19 15:45 Multivitamins (Thera M Plus) 1 tab DAILY 04/02/19 09:00 Non-Formulary Medication (Alpha Lipoic Acid ) 600 mg DAILY 04/02/19 09:00 UNV Non-Formulary Medication (Calcium Lactate ) 250 mg 8 tabs a day 04/01/19 15:45 UNV Non-Formulary Medication (Gluc/Juan-Msm#2/ C/D3/P[place]enix/Born (Prfcxhdxed-Fqmymeoesye-Pyx Tab)) 1 each DAILY 04/02/19 09:00 UNV Ondansetron HCl (Zofran) 4 mg PRN Q4HRS PRN 04/01/19 15:45 Oxycodone/ Acetaminophen (Percocet 5/325) 1 tab PRN Q6HRS PRN 04/01/19 15:45 04/01/19 21:40 1 TAB Pantoprazole Sodium (PROTONIX VIAL for IV PUSH) 40 mg DAILYAC 04/01/19 16:30 04/01/19 17:38 40 MG Potassium Chloride (Klor-Con) 10 meq DAILY 04/02/19 09:00 Sodium Chloride 1,000 ml @ 100 mls/hr Q10H 04/01/19 17:00 04/01/19 17:38 100 MLS/HR Zolpidem Tartrate (Ambien) 5 mg PRN QHS PRN 04/01/19 15:45 Allergies Allergies Allergies Coded Allergies Type Severity Reaction Last Updated Verified No Known Drug Allergies 03/24/19 No ROS Review of System CONSTITUTIONAL: No fever or chills EYES: No recent changes SKIN: No rash or itching CARDIOVASCULAR: No chest pain, syncope, palpitations, or edema RESPIRATORY: No SOB or cough GASTROINTESTINAL: No nausea, vomiting or abdominal pain NEUROLOGICAL: No headaches or weakness ENDOCRINE: No cold or heat intolerance GENITOURINARY: No urgency or frequency of urination MUSCULOSKELETAL: No back pain or joint pain LYMPHATICS: No enlarged lymph nodes PSYCHIATRIC: No anxiety or depression Physical Exam Physical Exam GEN.: No apparent distress. Alert and oriented. HEENT: Head is normocephalic, atraumatic NECK: Supple. LUNGS: Clear to auscultation. HEART: RRR, S1, S2 present. Peripheral pulses intact ABDOMEN: Soft, nontender. Positive bowel sounds. EXTREMITIES: Without any cyanosis. NEUROLOGIC: Normal speech, normal tone PSYCHIATRIC: Normal affect, normal mood. SKIN: No ulcerations Vitals Vitals Vital Signs Date Time Temp Pulse Resp B/P (MAP) Pulse Ox O2 Delivery O2 Flow Rate FiO2 04/01/19 21:40 Room Air 04/01/19 19:20 97.6 96 16 132/53 (79) 95 97.6 Labs Labs Laboratory Tests Test 04/01/19 15:25 04/01/19 17:21 04/01/19 18:00 04/01/19 19:29 White Blood Count 13.5 x10^3/uL (4.0-11.0) Red Blood Count 2.61 x10^6/uL (4.30-5.70) Hemoglobin 7.5 g/dL (13.0-17.5) Hematocrit 22.9 % (39.0-53.0) Mean Corpuscular Volume 88 fL (79-100) Mean Corpuscular Hemoglobin 29 pg (25-35) Mean Corpuscular Hemoglobin Concent 33 g/dL (31-37) Red Cell Distribution Width 15.6 % (11.5-14.5) Platelet Count 671 x10^3/uL (140-400) Neutrophils (%) (Auto) 79 % (31-73) Lymphocytes (%) (Auto) 12 % (24-48) Monocytes (%) (Auto) 8 % (0-9) Eosinophils (%) (Auto) 0 % (0-3) Basophils (%) (Auto) 1 % (0-3) Neutrophils # (Auto) 10.7 x10^3uL (1.8-7.7) Lymphocytes # (Auto) 1.6 x10^3/uL (1.0-4.8) Monocytes # (Auto) 1.0 x10^3/uL (0.0-1.1) Eosinophils # (Auto) 0.0 x10^3/uL (0.0-0.7) Basophils # (Auto) 0.1 x10^3/uL (0.0-0.2) Prothrombin Time 15.0 SEC (11.7-14.0) Prothromb Time International Ratio 1.2 (0.8-1.1) Activated Partial Thromboplast Time 34 SEC (24-38) Sodium Level 135 mmol/L (136-145) Potassium Level 4.7 mmol/L (3.5-5.1) Chloride Level 98 mmol/L (98-107) Carbon Dioxide Level 25 mmol/L (21-32) Anion Gap 12 (6-14) Blood Urea Nitrogen 19 mg/dL (8-26) Creatinine 0.9 mg/dL (0.7-1.3) Estimated GFR (Cockcroft-Gault) 82.9 BUN/Creatinine Ratio 21 (6-20) Glucose Level 46 mg/dL (70-99) Calcium Level 8.9 mg/dL (8.5-10.1) Total Bilirubin 0.4 mg/dL (0.2-1.0) Aspartate Amino Transf (AST/SGOT) 35 U/L (15-37) Alanine Aminotransferase (ALT/SGPT) 39 U/L (16-63) Alkaline Phosphatase 95 U/L (46-116) Total Protein 7.6 g/dL (6.4-8.2) Albumin 2.3 g/dL (3.4-5.0) Albumin/Globulin Ratio 0.4 (1.0-1.7) Glucose (Fingerstick) 45 mg/dL (70-99) 99 mg/dL (70-99) 77 mg/dL (70-99) Laboratory Tests Test 04/01/19 15:25 04/01/19 17:21 04/01/19 18:00 04/01/19 19:29 White Blood Count 13.5 x10^3/uL (4.0-11.0) Red Blood Count 2.61 x10^6/uL (4.30-5.70) Hemoglobin 7.5 g/dL (13.0-17.5) Hematocrit 22.9 % (39.0-53.0) Mean Corpuscular Volume 88 fL (79-100) Mean Corpuscular Hemoglobin 29 pg (25-35) Mean Corpuscular Hemoglobin Concent 33 g/dL (31-37) Red Cell Distribution Width 15.6 % (11.5-14.5) Platelet Count 671 x10^3/uL (140-400) Neutrophils (%) (Auto) 79 % (31-73) Lymphocytes (%) (Auto) 12 % (24-48) Monocytes (%) (Auto) 8 % (0-9) Eosinophils (%) (Auto) 0 % (0-3) Basophils (%) (Auto) 1 % (0-3) Neutrophils # (Auto) 10.7 x10^3uL (1.8-7.7) Lymphocytes # (Auto) 1.6 x10^3/uL (1.0-4.8) Monocytes # (Auto) 1.0 x10^3/uL (0.0-1.1) Eosinophils # (Auto) 0.0 x10^3/uL (0.0-0.7) Basophils # (Auto) 0.1 x10^3/uL (0.0-0.2) Prothrombin Time 15.0 SEC (11.7-14.0) Prothromb Time International Ratio 1.2 (0.8-1.1) Activated Partial Thromboplast Time 34 SEC (24-38) Sodium Level 135 mmol/L (136-145) Potassium Level 4.7 mmol/L (3.5-5.1) Chloride Level 98 mmol/L (98-107) Carbon Dioxide Level 25 mmol/L (21-32) Anion Gap 12 (6-14) Blood Urea Nitrogen 19 mg/dL (8-26) Creatinine 0.9 mg/dL (0.7-1.3) Estimated GFR (Cockcroft-Gault) 82.9 BUN/Creatinine Ratio 21 (6-20) Glucose Level 46 mg/dL (70-99) Calcium Level 8.9 mg/dL (8.5-10.1) Total Bilirubin 0.4 mg/dL (0.2-1.0) Aspartate Amino Transf (AST/SGOT) 35 U/L (15-37) Alanine Aminotransferase (ALT/SGPT) 39 U/L (16-63) Alkaline Phosphatase 95 U/L (46-116) Total Protein 7.6 g/dL (6.4-8.2) Albumin 2.3 g/dL (3.4-5.0) Albumin/Globulin Ratio 0.4 (1.0-1.7) Glucose (Fingerstick) 45 mg/dL (70-99) 99 mg/dL (70-99) 77 mg/dL (70-99) VTE Prophylaxis Ordered VTE Prophylaxis Devices: Yes VTE Pharmacological Prophylaxi: No Assessment/Plan Assessment/Plan Normocytic anemia Iron deficiency on review of his records no obvious GI source please refer to previous admission History of colon cancer in early 2005 History of peptic ulcer disease secondary to NSAID use without obvious acute bleeding on EGD last week History of diabetes mellitus type 2 Essential hypertension fairly controlled Sacral decubitus ulcer Wheelchair-bound due to functional quadriplegia Plan: We'll follow H&H in the a.m. Will monitor for active bleeding Resume home medications Iron supplementation We'll transfuse if hemoglobin the a.m. is less than 7 Hold anticoagulation Wound care The recommendations based on clinical course DVT prophylaxis with SCD and teds Problem Qualifiers (1) Anemia: Anemia type: unspecified type Qualified Codes: D64.9 - Anemia, unspecified DEBORAH LUNA MD April 01, 2019 23:56
[2019-04-02] MEDS: IV NORMAL SALINE 1000ML BAG 1,000 ML IV SCH ×3 (03:00→23:00)
[2019-04-02 03:30] VITALS: BP 146/53
[2019-04-02] MEDS: oxyCODONE/APAP 5/325 1 TAB TABLET PO PRN ×2 (04:16→22:39)
[2019-04-02 07:12] VITALS: BP 141/69
[2019-04-02] MEDS: INSULIN LISPRO 300 UNITS/3 ML INSULN.PEN. SQ SCH ×3 (08:00→17:00)
[2019-04-02] MEDS: PANTOPRAZOLE IV PUSH 40 MG VIAL. IVP SCH (08:14)
[2019-04-02] MEDS: MULTIVITAMIN with MINERAL TABLET. PO SCH (08:16)
[2019-04-02] MEDS: glipiZIDE 5 MG TABLET PO SCH ×2 (08:16→17:34)
[2019-04-02] MEDS: hydroCHLOROthiazide 12.5 MG CAPSULE PO SCH (08:16)
[2019-04-02] MEDS: LINAGLIPTIN 5 MG TABLET PO SCH (08:16)
[2019-04-02] MEDS: POTASSIUM CHLORIDE 10 MEQ TABLET.ER. PO SCH (08:17)
[2019-04-02] MEDS: OMEGA-3 FATTY ACIDS/FISH OIL 1,000 MG CAPSULE. PO SCH (08:17)
[2019-04-02] MEDS: LISINOPRIL 10 MG TABLET PO SCH (08:17)
[2019-04-02] MEDS: FERROUS SULFATE 325 MG TABLET. PO SCH (08:18)
[2019-04-02] MEDS: GABAPENTIN 300 MG CAPSULE. PO SCH ×2 (08:18→21:24)
[2019-04-02] MEDS ORDERED: NON FORMULARY ITEM (Alpha Lipoic Acid 600 MG) PO SCH (09:00)
[2019-04-02] MEDS ORDERED: NON FORMULARY ITEM (Gluc/Chon-Msm#2/C/D3/Mang/Born (Glucosamin-Chondroitin-Msm Tab) 1 EACH PO SCH (09:00)
[2019-04-02 09:09] LABS: BASO # 0.1 x10^3/uL (0.0-0.2); BASO % 1 % (0-3); EOS # 0.1 x10^3/uL (0.0-0.7); EOS % 1 % (0-3); HEMATOCRIT 22.4 % (39.0-53.0); HEMOGLOBIN 7.6 g/dL (13.0-17.5); LYMPH # 1.9 x10^3/uL (1.0-4.8); LYMPH % 21 % (24-48); MEAN CORPUSCULAR HEMOGLOBIN 30 pg (25-35); MEAN CORPUSCULAR HGB CONC 34 g/dL (31-37); MEAN CORPUSCULAR VOLUME 88 fL (79-100); MONO # 0.7 x10^3/uL (0.0-1.1); MONO % 8 % (0-9); NEUT # 6.1 x10^3uL (1.8-7.7); NEUT % 68 % (31-73); PLATELET COUNT 604 x10^3/uL (140-400); RED BLOOD COUNT 2.55 x10^6/uL (4.30-5.70); RED CELL DISTRIBUTION WIDTH 15.8 % (11.5-14.5)
[2019-04-02] MEDS ORDERED: IRON SUCROSE COMPLEX 400 MG in IV NORMAL SALINE 250ML 250 ML IV ONE (10:00)
[2019-04-02 10:41] VITALS: BP 135/57
[2019-04-02 14:59] VITALS: BP 130/54
--- NOTE | 2019-04-02 17:22 | PDOC ---
PROGRESS NOTES Chief Complaint Chief Complaint Normocytic anemia Iron deficiency on review of his records no obvious GI source please refer to previous admission History of colon cancer in early 2005 History of peptic ulcer disease secondary to NSAID use without obvious acute bleeding on EGD last week History of diabetes mellitus type 2 Essential hypertension fairly controlled Sacral decubitus ulcer Wheelchair-bound due to functional quadriplegia Plan: h and h stable Will monitor for active bleeding Resume home medications Iron supplementation We'll transfuse if hemoglobin the a.m. is less than 7 Hold anticoagulation Wound care further recommendations based on clinical course DVT prophylaxis with SCD and teds Vitals Vitals Vital Signs Date Time Temp Pulse Resp B/P (MAP) Pulse Ox O2 Delivery O2 Flow Rate FiO2 04/02/19 14:59 98.9 95 20 130/54 (79) 98 Room Air 98.9 Physical Exam Lungs: Clear, Wheezing Labs LABS Laboratory Tests Test 04/01/19 18:00 04/01/19 19:29 04/02/19 06:00 04/02/19 07:31 Glucose (Fingerstick) 99 mg/dL (70-99) 77 mg/dL (70-99) 105 mg/dL (70-99) Nasal Screen MRSA (PCR) Negative (Negative) Test 04/02/19 08:40 04/02/19 11:24 04/02/19 16:32 White Blood Count 9.0 x10^3/uL (4.0-11.0) Red Blood Count 2.55 x10^6/uL (4.30-5.70) Hemoglobin 7.6 g/dL (13.0-17.5) Hematocrit 22.4 % (39.0-53.0) Mean Corpuscular Volume 88 fL (79-100) Mean Corpuscular Hemoglobin 30 pg (25-35) Mean Corpuscular Hemoglobin Concent 34 g/dL (31-37) Red Cell Distribution Width 15.8 % (11.5-14.5) Platelet Count 604 x10^3/uL (140-400) Neutrophils (%) (Auto) 68 % (31-73) Lymphocytes (%) (Auto) 21 % (24-48) Monocytes (%) (Auto) 8 % (0-9) Eosinophils (%) (Auto) 1 % (0-3) Basophils (%) (Auto) 1 % (0-3) Neutrophils # (Auto) 6.1 x10^3uL (1.8-7.7) Lymphocytes # (Auto) 1.9 x10^3/uL (1.0-4.8) Monocytes # (Auto) 0.7 x10^3/uL (0.0-1.1) Eosinophils # (Auto) 0.1 x10^3/uL (0.0-0.7) Basophils # (Auto) 0.1 x10^3/uL (0.0-0.2) Glucose (Fingerstick) 167 mg/dL (70-99) 127 mg/dL (70-99) Assessment and Plan Assessmemt and Plan Problems Medical Problems: (1) Hypoglycemia Status: Acute Comment Review of Relevant I have reviewed the following items jennifer (where applicable) has been applied. Labs Laboratory Tests Test 04/01/19 15:25 04/01/19 17:21 04/01/19 18:00 04/01/19 19:29 White Blood Count 13.5 x10^3/uL (4.0-11.0) Red Blood Count 2.61 x10^6/uL (4.30-5.70) Hemoglobin 7.5 g/dL (13.0-17.5) Hematocrit 22.9 % (39.0-53.0) Mean Corpuscular Volume 88 fL (79-100) Mean Corpuscular Hemoglobin 29 pg (25-35) Mean Corpuscular Hemoglobin Concent 33 g/dL (31-37) Red Cell Distribution Width 15.6 % (11.5-14.5) Platelet Count 671 x10^3/uL (140-400) Neutrophils (%) (Auto) 79 % (31-73) Lymphocytes (%) (Auto) 12 % (24-48) Monocytes (%) (Auto) 8 % (0-9) Eosinophils (%) (Auto) 0 % (0-3) Basophils (%) (Auto) 1 % (0-3) Neutrophils # (Auto) 10.7 x10^3uL (1.8-7.7) Lymphocytes # (Auto) 1.6 x10^3/uL (1.0-4.8) Monocytes # (Auto) 1.0 x10^3/uL (0.0-1.1) Eosinophils # (Auto) 0.0 x10^3/uL (0.0-0.7) Basophils # (Auto) 0.1 x10^3/uL (0.0-0.2) Prothrombin Time 15.0 SEC (11.7-14.0) Prothromb Time International Ratio 1.2 (0.8-1.1) Activated Partial Thromboplast Time 34 SEC (24-38) Sodium Level 135 mmol/L (136-145) Potassium Level 4.7 mmol/L (3.5-5.1) Chloride Level 98 mmol/L (98-107) Carbon Dioxide Level 25 mmol/L (21-32) Anion Gap 12 (6-14) Blood Urea Nitrogen 19 mg/dL (8-26) Creatinine 0.9 mg/dL (0.7-1.3) Estimated GFR (Cockcroft-Gault) 82.9 BUN/Creatinine Ratio 21 (6-20) Glucose Level 46 mg/dL (70-99) Calcium Level 8.9 mg/dL (8.5-10.1) Total Bilirubin 0.4 mg/dL (0.2-1.0) Aspartate Amino Transf (AST/SGOT) 35 U/L (15-37) Alanine Aminotransferase (ALT/SGPT) 39 U/L (16-63) Alkaline Phosphatase 95 U/L (46-116) Total Protein 7.6 g/dL (6.4-8.2) Albumin 2.3 g/dL (3.4-5.0) Albumin/Globulin Ratio 0.4 (1.0-1.7) Glucose (Fingerstick) 45 mg/dL (70-99) 99 mg/dL (70-99) 77 mg/dL (70-99) Test 04/02/19 06:00 04/02/19 07:31 04/02/19 08:40 04/02/19 11:24 Nasal Screen MRSA (PCR) Negative (Negative) Glucose (Fingerstick) 105 mg/dL (70-99) 167 mg/dL (70-99) White Blood Count 9.0 x10^3/uL (4.0-11.0) Red Blood Count 2.55 x10^6/uL (4.30-5.70) Hemoglobin 7.6 g/dL (13.0-17.5) Hematocrit 22.4 % (39.0-53.0) Mean Corpuscular Volume 88 fL (79-100) Mean Corpuscular Hemoglobin 30 pg (25-35) Mean Corpuscular Hemoglobin Concent 34 g/dL (31-37) Red Cell Distribution Width 15.8 % (11.5-14.5) Platelet Count 604 x10^3/uL (140-400) Neutrophils (%) (Auto) 68 % (31-73) Lymphocytes (%) (Auto) 21 % (24-48) Monocytes (%) (Auto) 8 % (0-9) Eosinophils (%) (Auto) 1 % (0-3) Basophils (%) (Auto) 1 % (0-3) Neutrophils # (Auto) 6.1 x10^3uL (1.8-7.7) Lymphocytes # (Auto) 1.9 x10^3/uL (1.0-4.8) Monocytes # (Auto) 0.7 x10^3/uL (0.0-1.1) Eosinophils # (Auto) 0.1 x10^3/uL (0.0-0.7) Basophils # (Auto) 0.1 x10^3/uL (0.0-0.2) Test 04/02/19 16:32 Glucose (Fingerstick) 127 mg/dL (70-99) Laboratory Tests Test 04/01/19 18:00 04/01/19 19:29 04/02/19 06:00 04/02/19 07:31 Glucose (Fingerstick) 99 mg/dL (70-99) 77 mg/dL (70-99) 105 mg/dL (70-99) Nasal Screen MRSA (PCR) Negative (Negative) Test 04/02/19 08:40 04/02/19 11:24 04/02/19 16:32 White Blood Count 9.0 x10^3/uL (4.0-11.0) Red Blood Count 2.55 x10^6/uL (4.30-5.70) Hemoglobin 7.6 g/dL (13.0-17.5) Hematocrit 22.4 % (39.0-53.0) Mean Corpuscular Volume 88 fL (79-100) Mean Corpuscular Hemoglobin 30 pg (25-35) Mean Corpuscular Hemoglobin Concent 34 g/dL (31-37) Red Cell Distribution Width 15.8 % (11.5-14.5) Platelet Count 604 x10^3/uL (140-400) Neutrophils (%) (Auto) 68 % (31-73) Lymphocytes (%) (Auto) 21 % (24-48) Monocytes (%) (Auto) 8 % (0-9) Eosinophils (%) (Auto) 1 % (0-3) Basophils (%) (Auto) 1 % (0-3) Neutrophils # (Auto) 6.1 x10^3uL (1.8-7.7) Lymphocytes # (Auto) 1.9 x10^3/uL (1.0-4.8) Monocytes # (Auto) 0.7 x10^3/uL (0.0-1.1) Eosinophils # (Auto) 0.1 x10^3/uL (0.0-0.7) Basophils # (Auto) 0.1 x10^3/uL (0.0-0.2) Glucose (Fingerstick) 167 mg/dL (70-99) 127 mg/dL (70-99) Medications Current Medications Sodium Chloride 1,000 ml @ 100 mls/hr Q10H IV Last administered on 04/02/19at 03:00; Start 04/01/19 at 17:00 Ondansetron HCl (Zofran) 4 mg PRN Q4HRS PRN IV NAUSEA/VOMITING; Start 04/01/19 at 15:45 Zolpidem Tartrate (Ambien) 5 mg PRN QHS PRN PO INSOMNIA; Start 04/01/19 at 15:45 Acetaminophen (Tylenol) 650 mg PRN Q4HRS PRN PO TEMP OVER 100.4F OR MILD PAIN; Start 04/01/19 at 15:45 Docusate Sodium (Colace) 100 mg PRN BID PRN PO CONSTIPATION; Start 04/01/19 at 15:45 Albuterol Sulfate (Ventolin Neb Soln) 2.5 mg PRN Q4HRS PRN NEB SHORTNESS OF BREATH; Start 04/01/19 at 15:45 Guaifenesin (Robitussin) 200 mg PRN Q4HRS PRN PO COUGH; Start 04/01/19 at 15:45 Lorazepam (Ativan) 0.5 mg PRN Q4HRS PRN PO ANXIETY / AGITATION; Start 04/01/19 at 15:45 Insulin Human Lispro (HumaLOG) 0-7 UNITS TIDWMEALS SQ ; Start 04/01/19 at 17:00 Dextrose (Dextrose 50%-Water Syringe) 12.5 gm PRN Q15MIN PRN IV SEE COMMENTS; Start 04/01/19 at 15:45 Atorvastatin Calcium (Lipitor) 10 mg QHS PO Last administered on 04/01/19at 21:13; Start 04/01/19 at 21:00 Ferrous Sulfate (Feosol) 325 mg BIDWMEALS PO Last administered on 04/01/19at 17:38; Start 04/01/19 at 17:00; Stop 04/02/19 at 07:56; Status DC Gabapentin (Neurontin) 300 mg BID PO Last administered on 04/02/19at 08:18; Start 04/01/19 at 21:00 Methocarbamol (Robaxin) 750 mg PRN Q8HRS PRN PO MUSCLE SPASMS; Start 04/01/19 at 15:45 Oxycodone/ Acetaminophen (Percocet 5/325) 1 tab PRN Q6HRS PRN PO PAIN Last administered on 04/02/19at 04:16; Start 04/01/19 at 15:45 Potassium Chloride (Klor-Con) 10 meq DAILY PO Last administered on 04/02/19at 08:17; Start 04/02/19 at 09:00 Non-Formulary Medication (Alpha Lipoic Acid ) 600 mg DAILY PO ; Start 04/02/19 at 09:00; Status UNV Non-Formulary Medication (Calcium Lactate ) 250 mg 8 tabs a day PO ; Start 04/01/19 at 15:45; Status UNV Glipizide (Glucotrol) 10 mg BIDBFRMEAL PO Last administered on 04/02/19at 08:16; Start 04/01/19 at 16:30 Non-Formulary Medication (Gluc/Juan-Msm#2/ C/D3/[place]/Born (Bqvtwaalba-Agbgvfrhqvj-Xke Tab)) 1 each DAILY PO ; Start 04/02/19 at 09:00; Status UNV Lisinopril (Prinivil) 10 mg DAILY PO Last administered on 5/18/19at 08:17; Start 04/02/19 at 09:00 Multivitamins (Thera M Plus) 1 tab DAILY PO Last administered on 04/02/19 08:16; Start 04/02/19 at 09:00 Fish Oil (Fish Oil) 1,000 mg DAILY PO Last administered on 04/02/19at 08:17; Start 04/02/19 at 09:00 Linagliptin (Tradjenta) 5 mg DAILY PO ; Start 04/02/19 at 09:00 Pantoprazole Sodium (PROTONIX VIAL for IV PUSH) 40 mg DAILYAC IVP Last administered on 04/02/19at 08:14; Start 04/01/19 at 16:30 Hydrochlorothiazide (Microzide) 12.5 mg DAILY PO Last administered on 04/02/19at 08:16; Start 04/02/19 at 09:00 Dextrose (Dextrose 50%-Water Syringe) 12.5 gm PRN Q15MIN PRN IV SEE COMMENTS; Start 04/01/19 at 17:30; Stop 04/02/19 at 13:23; Status DC Ferrous Sulfate (Feosol) 325 mg DAILY08 PO Last administered on 04/02/19at 08:18; Start 04/02/19 at 08:00 Iron Sucrose 400 mg/Sodium Chloride 270 ml @ 90 mls/hr 1X ONCE IV Last administered on 04/02/19at 11:20; Start 04/02/19 at 10:00; Stop 04/02/19 at 12:59; Status DC Active Scripts Active [Pantoprazole] 40 MG Tablet.dr 40 Mg PO DAILYAC 30 Days Reported Lisinopril-Hctz 10-12.5 Mg Tab (Lisinopril/Hydrochlorothiazide) 1 Each Tablet 1 Tab PO DAILY Robaxin-750 (Methocarbamol) 750 Mg Tablet 750 Mg PO PRN Q8HRS LAST DOSE GIVEN: DATE:10-15-16 TIME:8:30 a.m. NEXT DOSE DUE: DATE:10-15-16 TIME:4:30 p.m. if needed for muscle spasms Percocet 5-325 Mg Tablet (Oxycodone/Acetaminophen) 1 Each Tablet 1-2 Tab PO Q4-6HRS No pain medication given this morning my take as needed for pain at any time Allopurinol 100 Mg Tablet 1 Tab PO DAILY LAST DOSE GIVEN: DATE:10-15-16 TIME:8:30 a.m. NEXT DOSE DUE: DATE:10-16-16 TIME:8:30 a.m. Fqypscleak-Cnssdzkshqo-Ulf Tab (Gluc/Juan-Msm#2/C/D3/[place]/Born) 1 Each Tablet 1 Each PO DAILY Not givne while in hosp. May resume at home as directed. Alpha Lipoic Acid 300 Mg Capsule 600 Mg PO DAILY Not given while in hosp. May resume at home as directed. Klor-Con 10 (Potassium Chloride) 10 Meq Tablet.er 1 Tab PO DAILY LAST DOSE GIVEN: DATE:10-15-16 TIME:8:30 a.m. NEXT DOSE DUE: DATE:10-16-16 TIME:8:30 a.m. Lipitor (Atorvastatin Calcium) 10 Mg Tablet 1 Tab PO QHS Not given while in hosp. May resume at home as directed Ferrous Sulfate 325 Mg Tablet 1 Tab PO BID LAST DOSE GIVEN: DATE:10-15-16 TIME:9:30 a.m. NEXT DOSE DUE: DATE:10-15-16 TIME:5:00 p.m. Calcium Lactate 650 Mg Tablet 250 Mg PO 8 TABS A DAY Not given whilein hosp. May resume at home as directed Fish Oil ([place]-3 Fatty Acids) 500 Mg Capsule.dr 1,000 Mg PO DAILY Not given while in hosp. May resume at home as directed Aspir 81 (Aspirin) 81 Mg Tablet.dr 1 Tab PO DAILY LAST DOSE GIVEN: DATE:10-15-16 TIME:9:00 a.m. NEXT DOSE DUE: DATE:10-16-16 TIME:9:00 a.m. Multivitamins (Multivitamin) 1 Each Tablet 1 Tab PO DAILY LAST DOSE GIVEN: DATE:10-15-16 TIME:8:30 a.m. NEXT DOSE DUE: DATE:10-16-16 TIME:8:30 a.m. Januvia (Sitagliptin Phosphate) 100 Mg Tablet 1 Tab PO DAILY LAST DOSE GIVEN: DATE:10-15-16 TIME:8:30 a.m. NEXT DOSE DUE: DATE:10-16-16 TIME:8;30 a.m. Metformin Hcl 1,000 Mg Tablet 1 Tab PO BID LAST DOSE GIVEN: DATE:10-15-16 TIME:9:00 a.m. NEXT DOSE DUE: DATE:10-15-16 TIME:5:00 p.m. Glipizide 10 Mg Tablet 1 Tab PO BID LAST DOSE GIVEN: DATE:10-15-16 TIME:8:30 a.m. NEXT DOSE DUE: DATE:10-15-16 TIME:5:00 p.m. Gabapentin (Gabapentin) 300 Mg Capsule 300 Mg PO BID LAST DOSE GIVEN: DATE:10-15-16 TIME:8:30 a.m. NEXT DOSE DUE: DATE:10-15-16 TIME:9:00 p.m. Vitals/I & O Vital Sign - Last 24 Hours 04/01/19 04/01/19 04/01/19 04/01/19 18:17 19:20 20:00 21:40 Temp 97.6 97.6 Pulse 96 Resp 16 B/P (MAP) 132/53 (79) Pulse Ox 95 O2 Delivery Room Air Room Air Room Air Room Air 04/01/19 04/02/19 04/02/19 04/02/19 23:15 03:30 04:16 06:13 Temp 98.3 97.5 98.3 97.5 Pulse 97 95 Resp 18 16 B/P (MAP) 119/48 (71) 146/53 (84) Pulse Ox 95 97 O2 Delivery BiPAP/CPAP BiPAP/CPAP Room Air Room Air 04/02/19 04/02/19 04/02/19 04/02/19 07:12 08:00 08:17 10:41 Temp 97.9 97.6 97.9 97.6 Pulse 84 84 110 Resp 20 20 B/P (MAP) 141/69 (93) 141/69 135/57 (83) Pulse Ox 98 98 O2 Delivery BiPAP/CPAP Room Air Room Air 04/02/19 14:59 Temp 98.9 98.9 Pulse 95 Resp 20 B/P (MAP) 130/54 (79) Pulse Ox 98 O2 Delivery Room Air Intake and Output 04/01/19 04/01/19 04/02/19 14:59 22:59 06:59 Intake Total 300 ml 150 ml Output Total 700 ml Balance 300 ml -550 ml EDBORAH LUNA MD April 02, 2019 17:22
[2019-04-02 19:51] VITALS: BP 140/42
[2019-04-02] MEDS: ATORVASTATIN CALCIUM 10 MG TABLET. PO SCH (21:24)
[2019-04-02 23:35] VITALS: BP 141/42
[2019-04-03 03:12] VITALS: BP 140/67
[2019-04-03 07:15] VITALS: BP 144/57
[2019-04-03] MEDS: INSULIN LISPRO 300 UNITS/3 ML INSULN.PEN. SQ SCH ×3 (08:00→16:42)
[2019-04-03] MEDS: PANTOPRAZOLE IV PUSH 40 MG VIAL. IVP SCH (08:08)
[2019-04-03] MEDS: FERROUS SULFATE 325 MG TABLET. PO SCH ×2 (08:09→16:41)
[2019-04-03] MEDS: MULTIVITAMIN with MINERAL TABLET. PO SCH (08:09)
[2019-04-03] MEDS: POTASSIUM CHLORIDE 10 MEQ TABLET.ER. PO SCH (08:09)
[2019-04-03] MEDS: GABAPENTIN 300 MG CAPSULE. PO SCH ×2 (08:09→20:35)
[2019-04-03] MEDS: glipiZIDE 5 MG TABLET PO SCH ×2 (08:09→16:40)
[2019-04-03] MEDS: OMEGA-3 FATTY ACIDS/FISH OIL 1,000 MG CAPSULE. PO SCH (08:09)
[2019-04-03] MEDS: hydroCHLOROthiazide 12.5 MG CAPSULE PO SCH (08:09)
[2019-04-03] MEDS: LISINOPRIL 10 MG TABLET PO SCH (08:10)
[2019-04-03] MEDS: LINAGLIPTIN 5 MG TABLET PO SCH (08:10)
[2019-04-03 10:41] VITALS: BP 134/56
--- NOTE | 2019-04-03 12:52 | PDOC ---
PROGRESS NOTES Chief Complaint Chief Complaint Normocytic anemia Iron deficiency on review of his records no obvious GI source please refer to previous admission History of colon cancer in early 2005 History of peptic ulcer disease secondary to NSAID use without obvious acute bleeding on EGD last week History of diabetes mellitus type 2 Essential hypertension fairly controlled Sacral decubitus ulcer Wheelchair-bound due to functional quadriplegia Plan: h and h stable Will monitor for active bleeding Resume home medications Iron supplementation We'll transfuse if hemoglobin the a.m. is less than 7 Hold anticoagulation Wound care further recommendations based on clinical course DVT prophylaxis with SCD and teds History of Present Illness History of Present Illness Patient with no complaints during my visit. Continues to do well and his anemia is being replaced with iron since this is iron deficiency. I discussed the case verbally with her GI group segment consultant and the inpatient setting who will see the patient in his clinic in a couple weeks. He may consider doing an endoscopy at a later stage there is no active bleeding his only complaint is constipation as a result of his iron therapy Vitals Vitals Vital Signs Date Time Temp Pulse Resp B/P (MAP) Pulse Ox O2 Delivery O2 Flow Rate FiO2 04/03/19 10:41 98.9 117 20 134/56 (82) 96 Room Air 98.9 Physical Exam Lungs: Clear, Wheezing Labs LABS Laboratory Tests Test 04/02/19 16:32 04/02/19 23:08 04/03/19 07:28 04/03/19 11:50 Glucose (Fingerstick) 127 mg/dL (70-99) 156 mg/dL (70-99) 147 mg/dL (70-99) 183 mg/dL (70-99) Review of Systems Review of Systems Pertinent as per history of present illness otherwise 14 point review of system is negative Assessment and Plan Assessmemt and Plan Problems Medical Problems: (1) Hypoglycemia Status: Acute Comment Review of Relevant I have reviewed the following items jennifer (where applicable) has been applied. Labs Laboratory Tests Test 04/01/19 15:25 04/01/19 17:21 04/01/19 18:00 04/01/19 19:29 White Blood Count 13.5 x10^3/uL (4.0-11.0) Red Blood Count 2.61 x10^6/uL (4.30-5.70) Hemoglobin 7.5 g/dL (13.0-17.5) Hematocrit 22.9 % (39.0-53.0) Mean Corpuscular Volume 88 fL (79-100) Mean Corpuscular Hemoglobin 29 pg (25-35) Mean Corpuscular Hemoglobin Concent 33 g/dL (31-37) Red Cell Distribution Width 15.6 % (11.5-14.5) Platelet Count 671 x10^3/uL (140-400) Neutrophils (%) (Auto) 79 % (31-73) Lymphocytes (%) (Auto) 12 % (24-48) Monocytes (%) (Auto) 8 % (0-9) Eosinophils (%) (Auto) 0 % (0-3) Basophils (%) (Auto) 1 % (0-3) Neutrophils # (Auto) 10.7 x10^3uL (1.8-7.7) Lymphocytes # (Auto) 1.6 x10^3/uL (1.0-4.8) Monocytes # (Auto) 1.0 x10^3/uL (0.0-1.1) Eosinophils # (Auto) 0.0 x10^3/uL (0.0-0.7) Basophils # (Auto) 0.1 x10^3/uL (0.0-0.2) Prothrombin Time 15.0 SEC (11.7-14.0) Prothromb Time International Ratio 1.2 (0.8-1.1) Activated Partial Thromboplast Time 34 SEC (24-38) Sodium Level 135 mmol/L (136-145) Potassium Level 4.7 mmol/L (3.5-5.1) Chloride Level 98 mmol/L (98-107) Carbon Dioxide Level 25 mmol/L (21-32) Anion Gap 12 (6-14) Blood Urea Nitrogen 19 mg/dL (8-26) Creatinine 0.9 mg/dL (0.7-1.3) Estimated GFR (Cockcroft-Gault) 82.9 BUN/Creatinine Ratio 21 (6-20) Glucose Level 46 mg/dL (70-99) Calcium Level 8.9 mg/dL (8.5-10.1) Total Bilirubin 0.4 mg/dL (0.2-1.0) Aspartate Amino Transf (AST/SGOT) 35 U/L (15-37) Alanine Aminotransferase (ALT/SGPT) 39 U/L (16-63) Alkaline Phosphatase 95 U/L (46-116) Total Protein 7.6 g/dL (6.4-8.2) Albumin 2.3 g/dL (3.4-5.0) Albumin/Globulin Ratio 0.4 (1.0-1.7) Glucose (Fingerstick) 45 mg/dL (70-99) 99 mg/dL (70-99) 77 mg/dL (70-99) Test 04/02/19 06:00 04/02/19 07:31 04/02/19 08:40 04/02/19 11:24 Nasal Screen MRSA (PCR) Negative (Negative) Glucose (Fingerstick) 105 mg/dL (70-99) 167 mg/dL (70-99) White Blood Count 9.0 x10^3/uL (4.0-11.0) Red Blood Count 2.55 x10^6/uL (4.30-5.70) Hemoglobin 7.6 g/dL (13.0-17.5) Hematocrit 22.4 % (39.0-53.0) Mean Corpuscular Volume 88 fL (79-100) Mean Corpuscular Hemoglobin 30 pg (25-35) Mean Corpuscular Hemoglobin Concent 34 g/dL (31-37) Red Cell Distribution Width 15.8 % (11.5-14.5) Platelet Count 604 x10^3/uL (140-400) Neutrophils (%) (Auto) 68 % (31-73) Lymphocytes (%) (Auto) 21 % (24-48) Monocytes (%) (Auto) 8 % (0-9) Eosinophils (%) (Auto) 1 % (0-3) Basophils (%) (Auto) 1 % (0-3) Neutrophils # (Auto) 6.1 x10^3uL (1.8-7.7) Lymphocytes # (Auto) 1.9 x10^3/uL (1.0-4.8) Monocytes # (Auto) 0.7 x10^3/uL (0.0-1.1) Eosinophils # (Auto) 0.1 x10^3/uL (0.0-0.7) Basophils # (Auto) 0.1 x10^3/uL (0.0-0.2) Test 04/02/19 16:32 04/02/19 23:08 04/03/19 07:28 04/03/19 11:50 Glucose (Fingerstick) 127 mg/dL (70-99) 156 mg/dL (70-99) 147 mg/dL (70-99) 183 mg/dL (70-99) Laboratory Tests Test 04/02/19 16:32 04/02/19 23:08 04/03/19 07:28 04/03/19 11:50 Glucose (Fingerstick) 127 mg/dL (70-99) 156 mg/dL (70-99) 147 mg/dL (70-99) 183 mg/dL (70-99) Medications Current Medications Sodium Chloride 1,000 ml @ 100 mls/hr Q10H IV Last administered on 04/02/19at 03:00; Start 04/01/19 at 17:00 Ondansetron HCl (Zofran) 4 mg PRN Q4HRS PRN IV NAUSEA/VOMITING; Start 04/01/19 at 15:45 Zolpidem Tartrate (Ambien) 5 mg PRN QHS PRN PO INSOMNIA; Start 04/01/19 at 15:45 Acetaminophen (Tylenol) 650 mg PRN Q4HRS PRN PO TEMP OVER 100.4F OR MILD PAIN; Start 04/01/19 at 15:45 Docusate Sodium (Colace) 100 mg PRN BID PRN PO CONSTIPATION; Start 04/01/19 at 15:45 Albuterol Sulfate (Ventolin Neb Soln) 2.5 mg PRN Q4HRS PRN NEB SHORTNESS OF BREATH; Start 04/01/19 at 15:45 Guaifenesin (Robitussin) 200 mg PRN Q4HRS PRN PO COUGH; Start 04/01/19 at 15:45 Lorazepam (Ativan) 0.5 mg PRN Q4HRS PRN PO ANXIETY / AGITATION; Start 04/01/19 at 15:45 Insulin Human Lispro (HumaLOG) 0-7 UNITS TIDWMEALS SQ Last administered on 04/03/19at 12:04; Start 04/01/19 at 17:00 Dextrose (Dextrose 50%-Water Syringe) 12.5 gm PRN Q15MIN PRN IV SEE COMMENTS; Start 04/01/19 at 15:45 Atorvastatin Calcium (Lipitor) 10 mg QHS PO Last administered on 04/02/19at 21:24; Start 04/01/19 at 21:00 Ferrous Sulfate (Feosol) 325 mg BIDWMEALS PO Last administered on 04/01/19at 17:38; Start 04/01/19 at 17:00; Stop 04/02/19 at 07:56; Status DC Gabapentin (Neurontin) 300 mg BID PO Last administered on 04/03/19at 08:09; Start 04/01/19 at 21:00 Methocarbamol (Robaxin) 750 mg PRN Q8HRS PRN PO MUSCLE SPASMS; Start 04/01/19 at 15:45 Oxycodone/ Acetaminophen (Percocet 5/325) 1 tab PRN Q6HRS PRN PO MODERATE TO SEVERE PAIN Last administered on 04/02/19at 22:39; Start 04/01/19 at 15:45 Potassium Chloride (Klor-Con) 10 meq DAILY PO Last administered on 04/03/19at 08:09; Start 04/02/19 at 09:00 Non-Formulary Medication (Alpha Lipoic Acid ) 600 mg DAILY PO ; Start 04/02/19 at 09:00; Status UNV Non-Formulary Medication (Calcium Lactate ) 250 mg 8 tabs a day PO ; Start 04/01/19 at 15:45; Status UNV Glipizide (Glucotrol) 10 mg BIDBFRMEAL PO Last administered on 04/03/19at 08:09; Start 04/01/19 at 16:30 Non-Formulary Medication (Gluc/Juan-Msm#2/ C/D3/[place]/Born (Pjraunqrbo-Ocarybadlkw-Mqp Tab)) 1 each DAILY PO ; Start 04/02/19 at 09:00; Status UNV Lisinopril (Prinivil) 10 mg DAILY PO Last administered on 04/03/19at 08:10; Start 04/02/19 at 09:00 Multivitamins (Thera M Plus) 1 tab DAILY PO Last administered on 04/03/19 08:09; Start 04/02/19 at 09:00 Fish Oil (Fish Oil) 1,000 mg DAILY PO Last administered on 04/03/19at 08:09; Start 04/02/19 at 09:00 Linagliptin (Tradjenta) 5 mg DAILY PO ; Start 04/02/19 at 09:00 Pantoprazole Sodium (PROTONIX VIAL for IV PUSH) 40 mg DAILYAC IVP Last administered on 04/03/19at 08:08; Start 04/01/19 at 16:30 Hydrochlorothiazide (Microzide) 12.5 mg DAILY PO Last administered on 04/03/19at 08:09; Start 04/02/19 at 09:00 Dextrose (Dextrose 50%-Water Syringe) 12.5 gm PRN Q15MIN PRN IV SEE COMMENTS; Start 04/01/19 at 17:30; Stop 04/02/19 at 13:23; Status DC Ferrous Sulfate (Feosol) 325 mg DAILY08 PO Last administered on 04/03/19at 08:09; Start 04/02/19 at 08:00; Stop 04/03/19 at 12:32; Status DC Iron Sucrose 400 mg/Sodium Chloride 270 ml @ 90 mls/hr 1X ONCE IV Last administered on 04/02/19at 11:20; Start 04/02/19 at 10:00; Stop 04/02/19 at 12:59; Status DC Ferrous Sulfate (Feosol) 325 mg TIDWMEALS PO ; Start 04/03/19 at 17:00 Sennosides (Senna) 17.2 mg DAILY PO ; Start 04/03/19 at 14:00 Polyethylene Glycol (miraLAX PACKET) 17 gm DAILY PO ; Start 04/03/19 at 14:00 Active Scripts Active [Pantoprazole] 40 MG Tablet.dr 40 Mg PO DAILYAC 30 Days Reported Lisinopril-Hctz 10-12.5 Mg Tab (Lisinopril/Hydrochlorothiazide) 1 Each Tablet 1 Tab PO DAILY Robaxin-750 (Methocarbamol) 750 Mg Tablet 750 Mg PO PRN Q8HRS LAST DOSE GIVEN: DATE:10-15-16 TIME:8:30 a.m. NEXT DOSE DUE: DATE:10-15-16 TIME:4:30 p.m. if needed for muscle spasms Percocet 5-325 Mg Tablet (Oxycodone/Acetaminophen) 1 Each Tablet 1-2 Tab PO Q4-6HRS No pain medication given this morning my take as needed for pain at any time Allopurinol 100 Mg Tablet 1 Tab PO DAILY LAST DOSE GIVEN: DATE:10-15-16 TIME:8:30 a.m. NEXT DOSE DUE: DATE:10-16-16 TIME:8:30 a.m. Ountzbqufo-Btvzdivsbkl-Xmq Tab (Gluc/Juan-Msm#2/C/D3/[place]/Born) 1 Each Tablet 1 Each PO DAILY Not givne while in hosp. May resume at home as directed. Alpha Lipoic Acid 300 Mg Capsule 600 Mg PO DAILY Not given while in hosp. May resume at home as directed. Klor-Con 10 (Potassium Chloride) 10 Meq Tablet.er 1 Tab PO DAILY LAST DOSE GIVEN: DATE:10-15-16 TIME:8:30 a.m. NEXT DOSE DUE: DATE:10-16-16 TIME:8:30 a.m. Lipitor (Atorvastatin Calcium) 10 Mg Tablet 1 Tab PO QHS Not given while in hosp. May resume at home as directed Ferrous Sulfate 325 Mg Tablet 1 Tab PO BID LAST DOSE GIVEN: DATE:10-15-16 TIME:9:30 a.m. NEXT DOSE DUE: DATE:10-15-16 TIME:5:00 p.m. Calcium Lactate 650 Mg Tablet 250 Mg PO 8 TABS A DAY Not given whilein hosp. May resume at home as directed Fish Oil (Bulverde-3 Fatty Acids) 500 Mg Capsule.dr 1,000 Mg PO DAILY Not given while in hosp. May resume at home as directed Aspir 81 (Aspirin) 81 Mg Tablet.dr 1 Tab PO DAILY LAST DOSE GIVEN: DATE:10-15-16 TIME:9:00 a.m. NEXT DOSE DUE: DATE:10-16-16 TIME:9:00 a.m. Multivitamins (Multivitamin) 1 Each Tablet 1 Tab PO DAILY LAST DOSE GIVEN: DATE:10-15-16 TIME:8:30 a.m. NEXT DOSE DUE: DATE:10-16-16 TIME:8:30 a.m. Januvia (Sitagliptin Phosphate) 100 Mg Tablet 1 Tab PO DAILY LAST DOSE GIVEN: DATE:10-15-16 TIME:8:30 a.m. NEXT DOSE DUE: DATE:10-16-16 TIME:8;30 a.m. Metformin Hcl 1,000 Mg Tablet 1 Tab PO BID LAST DOSE GIVEN: DATE:10-15-16 TIME:9:00 a.m. NEXT DOSE DUE: DATE:10-15-16 TIME:5:00 p.m. Glipizide 10 Mg Tablet 1 Tab PO BID LAST DOSE GIVEN: DATE:10-15-16 TIME:8:30 a.m. NEXT DOSE DUE: DATE:10-15-16 TIME:5:00 p.m. Gabapentin (Gabapentin) 300 Mg Capsule 300 Mg PO BID LAST DOSE GIVEN: DATE:10-15-16 TIME:8:30 a.m. NEXT DOSE DUE: DATE:10-15-16 TIME:9:00 p.m. Vitals/I & O Vital Sign - Last 24 Hours 04/02/19 04/02/19 04/02/19 04/02/19 14:59 19:51 20:17 22:39 Temp 98.9 99.4 98.9 99.4 Pulse 95 97 Resp 20 21 B/P (MAP) 130/54 (79) 140/42 (74) Pulse Ox 98 97 O2 Delivery Room Air Room Air Room Air Room Air 04/02/19 04/02/19 04/03/19 04/03/19 23:35 23:54 03:12 07:15 Temp 100.2 98.0 97.7 100.2 98.0 97.7 Pulse 98 90 91 Resp 20 20 18 B/P (MAP) 141/42 (75) 140/67 (91) 144/57 (86) Pulse Ox 96 100 97 O2 Delivery Room Air Room Air Room Air Room Air 04/03/19 04/03/19 04/03/19 08:00 08:10 10:41 Temp 98.9 98.9 Pulse 91 117 Resp 20 B/P (MAP) 144/57 134/56 (82) Pulse Ox 96 O2 Delivery Room Air Room Air Intake and Output 04/02/19 04/02/19 04/03/19 14:59 22:59 06:59 Intake Total 500 ml 1000 ml 850 ml Output Total 1200 ml 1450 ml 450 ml Balance -700 ml -450 ml 400 ml DEBORAH LUNA MD April 03, 2019 12:52
[2019-04-03] MEDS: POLYETHYLENE GLYCOL 3350 17 GM PACKET. PO SCH (14:27)
[2019-04-03] MEDS: SENNOSIDES 8.6 MG TABLET PO SCH (14:27)
[2019-04-03 15:07] VITALS: BP 135/45
[2019-04-03 16:51] LABS: HEMATOCRIT 22.3 % (39.0-53.0); HEMOGLOBIN 7.4 g/dL (13.0-17.5); RED BLOOD COUNT 2.57 x10^6/uL (4.30-5.70); RED CELL DISTRIBUTION WIDTH 15.7 % (11.5-14.5); WHITE BLOOD COUNT 11.3 x10^3/uL (4.0-11.0)
[2019-04-03 19:35] VITALS: BP 136/64
[2019-04-03] MEDS: ATORVASTATIN CALCIUM 10 MG TABLET. PO SCH (20:35)
[2019-04-03] MEDS: oxyCODONE/APAP 5/325 1 TAB TABLET PO PRN (22:37)
[2019-04-03 23:47] VITALS: BP 131/33
[2019-04-04 03:42] VITALS: BP 115/52
[2019-04-04 07:00] VITALS: BP 135/62
[2019-04-04] MEDS: PANTOPRAZOLE IV PUSH 40 MG VIAL. IVP SCH (07:53)
[2019-04-04] MEDS: glipiZIDE 5 MG TABLET PO SCH (07:53)
[2019-04-04] MEDS: INSULIN LISPRO 300 UNITS/3 ML INSULN.PEN. SQ SCH ×2 (08:00→12:34)
[2019-04-04] MEDS: POLYETHYLENE GLYCOL 3350 17 GM PACKET. PO SCH (09:00)
[2019-04-04] MEDS: SENNOSIDES 8.6 MG TABLET PO SCH (09:10)
[2019-04-04] MEDS: OMEGA-3 FATTY ACIDS/FISH OIL 1,000 MG CAPSULE. PO SCH (09:10)
[2019-04-04] MEDS: MULTIVITAMIN with MINERAL TABLET. PO SCH (09:10)
[2019-04-04] MEDS: GABAPENTIN 300 MG CAPSULE. PO SCH (09:10)
[2019-04-04] MEDS: hydroCHLOROthiazide 12.5 MG CAPSULE PO SCH (09:10)
[2019-04-04] MEDS: LISINOPRIL 10 MG TABLET PO SCH (09:10)
[2019-04-04] MEDS: LINAGLIPTIN 5 MG TABLET PO SCH (09:11)
[2019-04-04] MEDS: POTASSIUM CHLORIDE 10 MEQ TABLET.ER. PO SCH (09:11)
[2019-04-04] MEDS: FERROUS SULFATE 325 MG TABLET. PO SCH ×2 (09:11→12:30)
[2019-04-04 11:00] VITALS: BP 132/52
--- NOTE | 2019-04-04 11:06 | PDOC3 ---
Discharge Summary Visit Information Date of Admission: April 01, 2019 Date of Discharge: April 04, 2019 Admitting Diagnosis Comment: JACK Negative GI workup History of colon cancer in early 2005 History of peptic ulcer disease secondary to NSAID use without obvious acute bleeding on EGD last week History of diabetes mellitus type 2 Essential hypertension fairly controlled Sacral decubitus ulcer Wheelchair-bound due to functional quadriplegia Final Diagnosis Problems Medical Problems: (1) Hypoglycemia Status: Acute Brief Hospital Course Allergies Allergies Coded Allergies Type Severity Reaction Last Updated Verified No Known Drug Allergies 03/24/19 No Vital Signs Vital Signs Date Time Temp Pulse Resp B/P (MAP) Pulse Ox O2 Delivery O2 Flow Rate FiO2 04/04/19 09:10 83 135/62 04/04/19 08:00 Room Air 04/04/19 07:00 99.0 18 98 99.0 Lab Results Laboratory Tests Test 04/02/19 11:24 04/02/19 16:32 04/02/19 23:08 04/03/19 07:28 Glucose (Fingerstick) 167 mg/dL (70-99) 127 mg/dL (70-99) 156 mg/dL (70-99) 147 mg/dL (70-99) Test 04/03/19 11:50 04/03/19 16:27 04/03/19 16:40 04/03/19 20:01 Glucose (Fingerstick) 183 mg/dL (70-99) 237 mg/dL (70-99) 212 mg/dL (70-99) White Blood Count 11.3 x10^3/uL (4.0-11.0) Red Blood Count 2.57 x10^6/uL (4.30-5.70) Hemoglobin 7.4 g/dL (13.0-17.5) Hematocrit 22.3 % (39.0-53.0) Mean Corpuscular Volume 87 fL (79-100) Mean Corpuscular Hemoglobin 29 pg (25-35) Mean Corpuscular Hemoglobin Concent 33 g/dL (31-37) Red Cell Distribution Width 15.7 % (11.5-14.5) Platelet Count 662 x10^3/uL (140-400) Test 04/04/19 07:54 Glucose (Fingerstick) 149 mg/dL (70-99) Laboratory Tests Test 04/03/19 11:50 04/03/19 16:27 04/03/19 16:40 04/03/19 20:01 Glucose (Fingerstick) 183 mg/dL (70-99) 237 mg/dL (70-99) 212 mg/dL (70-99) White Blood Count 11.3 x10^3/uL (4.0-11.0) Red Blood Count 2.57 x10^6/uL (4.30-5.70) Hemoglobin 7.4 g/dL (13.0-17.5) Hematocrit 22.3 % (39.0-53.0) Mean Corpuscular Volume 87 fL (79-100) Mean Corpuscular Hemoglobin 29 pg (25-35) Mean Corpuscular Hemoglobin Concent 33 g/dL (31-37) Red Cell Distribution Width 15.7 % (11.5-14.5) Platelet Count 662 x10^3/uL (140-400) Test 04/04/19 07:54 Glucose (Fingerstick) 149 mg/dL (70-99) Brief Hospital Course Mr. Dos Santos is a 73 old obese white male with a BMI 37.1, SNU resident, admitted for anemia, looking at records JACK. Had a recent GI workup which is negative. He has functional quadriplegia because of a shattered left knee and has orthopedics plans in an outside facility. PTOT pending but he will go back to SNU. In the past, he needed IV Venofer but no blood transfusion. His hemoglobin is 7.5-7.8 range and his chronic fatigue or generalized weakness. He supposed to be taking ferrous sulfate twice a day. Here we have him on 3 times a day with no reports of constipation Never been seen by heme onc in past for this anemia I did consult heme onc, if there are no further recommendations then will be able to go back to SNU with ferrous sulfate twice a day. Repeat CBC, 4 weeks time I did advise Consults performed heme onc Discharge Information Condition at Discharge: Improved, Stable Follow Up: Weeks (4 weeks PCP or heme onc re anemia) Disposition/Orders: Other (snu) Scheduled Allopurinol (Allopurinol) 100 Mg Tablet, 1 TAB PO DAILY for prevent gout, #30 Ref 5 (Reported) LAST DOSE GIVEN: DATE:10-15-16 TIME:8:30 a.m. NEXT DOSE DUE: DATE:10-16-16 TIME:8:30 a.m. Entered as Reported by: YULISA LOPEZ on 10/07/161401 Last Action: Reviewed on 04/01/191653 by LISS OCAMPO Alpha Lipoic Acid (Alpha Lipoic Acid) 300 Mg Capsule, 600 MG PO DAILY for alpha lipoc acid supplement, (Reported) Not given while in hosp. May resume at home as directed. Entered as Reported by: YUILSA LOPEZ on 10/07/161400 Last Action: Reviewed on 04/01/191653 by LISS OCAMPO Aspirin (Aspir 81) 81 Mg Tablet.dr, 1 TAB PO DAILY for heart health, #30 Ref 5 (Reported) LAST DOSE GIVEN: DATE:10-15-16 TIME:9:00 a.m. NEXT DOSE DUE: DATE:10-16-16 TIME:9:00 a.m. Entered as Reported by: STEPHANIE MENDOZA on 07/26/16 1301 Last Action: Reviewed on 04/01/191653 by LISS OCAMPO Atorvastatin Calcium (Lipitor) 10 Mg Tablet, 1 TAB PO QHS for high cholesterol, #90 Ref 1 (Reported) Not given while in hosp. May resume at home as directed Entered as Reported by: YULISA LOPEZ on 10/07/16 135 Last Action: Reviewed on 04/01/191653 by LISS OCAMPO Calcium Lactate (Calcium Lactate) 650 Mg Tablet, 250 MG PO 8 tabs a day for calcium supplement, (Reported) Not given whilein hosp. May resume at home as directed Entered as Reported by: YULISA LOPEZ on 10/07/161354 Last Action: Converted on 04/01/191541 by DEBORAH LUNA MD Ferrous Sulfate (Ferrous Sulfate) 325 Mg Tablet, 1 TAB PO BID for iron supplement, #60 Ref 3 (Reported) LAST DOSE GIVEN: DATE:10-15-16 TIME:9:30 a.m. NEXT DOSE DUE: DATE:10-15-16 T CLARISSA:5:00 p.m. Entered as Reported by: YULISA LOPEZ on 10/07/16 135 Last Action: Reviewed on 04/01/191653 by LISS OCAMPO Gabapentin (Gabapentin ) 300 Mg Capsule, 300 MG PO BID for nerve pain, (Reported) LAST DOSE GIVEN: DATE:10-15-16 TIME:8:30 a.m. NEXT DOSE DUE: DATE:10-15-16 TIME:9:00 p.m. Entered as Reported by: STEPHANIE MENDOZA on 07/26/161300 Last Action: Reviewed on 04/01/191653 by LISS OCAMPO Glipizide (Glipizide) 10 Mg Tablet, 1 TAB PO BID for antidiabetic, #60 Ref 5 (Reported) LAST DOSE GIVEN: DATE:10-15-16 TIME:8:30 a.m. NEXT DOSE DUE: DATE:10-15-16 TIME:5:00 p.m. Entered as Reported by: STEPHANIE MENDOZA on 07/26/161300 Last Action: Reviewed on 04/01/191653 by LISS OCAMPO Gluc/Juan-Msm#2/C/D3/[place]/Born (Suawwyirme-Zphqbsifyax-Jmf Tab) 1 Each Tablet, 1 EACH PO DAILY for joint health supplement, (Reported) Not givne while in hosp. May resume at home as directed. Entered as Reported by: YULISA LOPEZ on 10/07/16 1402 Last Action: Reviewed on 04/01/191653 by LISS OCAMPO Lisinopril/Hydrochlorothiazide (Lisinopril-Hctz 10-12.5 Mg Tab) 1 Each Tablet, 1 TAB PO DAILY for Blood Pressure, #30 Ref 5 (Reported) Entered as Reported by: MARK PATTERSON on 03/22/191652 Last Action: Reviewed on 04/01/191653 by LISS OCAMPO Metformin Hcl (Metformin Hcl) 1,000 Mg Tablet, 1 TAB PO BID for antidiabetic, #60 Ref 5 (Reported) LAST DOSE GIVEN: DATE:10-15-16 TIME:9:00 a.m. NEXT DOSE DUE: DATE:10-15-16 TIME:5:00 p.m. Entered as Reported by: STEPHANIE MENDOZA on 07/26/161300 Last Action: Reviewed on 04/01/191653 by LISS OCAMPO Methocarbamol (Robaxin-750) 750 Mg Tablet, 750 MG PO PRN Q8HRS for muscle spasms, (Reported) LAST DOSE GIVEN: DATE:10-15-16 TIME:8:30 a.m. NEXT DOSE DUE: DATE:10-15-16 TIME:4:30 p.m. if needed for muscle spasms Entered as Reported by: PATRICIA WILSON on 10/15/16 1000 Last Action: Reviewed on 04/01/191653 by LISS OCAMPO Multivitamin (Multivitamins) 1 Each Tablet, 1 TAB PO DAILY for vitamin supplement, #90 Ref 3 (Reported) LAST DOSE GIVEN: DATE:10-15-16 TIME:8:30 a.m. NEXT DOSE DUE: DATE:10-16-16 TIME:8:30 a.m. Entered as Reported by: STEPHANIE MENDOZA on 07/26/16 1301 Last Action: Reviewed on 04/01/191653 by LISS OCAMPO [place]-3 Fatty Acids (Fish Oil) 500 Mg Capsule.dr, 1,000 MG PO DAILY for heart health, (Reported) Not given while in hosp. May resume at home as directed Entered as Reported by: STEPHANIE MENDOZA on 07/26/16 1303 Last Action: Reviewed on 04/01/191653 by LISS OCAMPO Oxycodone/Apap 5-325 (Percocet 5-325 Mg Tablet ) 1 Each Tablet, 1-2 TAB PO Q4- 6HRS for pain relief, #40 (Reported) No pain medication given this morning my take as needed for pain at any time Entered as Reported by: PATRICIA WILSON on 10/15/16 0959 Last Action: Reviewed on 04/01/191653 by LISS OCAMPO Potassium Chloride (Klor-Con 10) 10 Meq Tablet.er, 1 TAB PO DAILY for potassium supplement, #30 Ref 5 (Reported) LAST DOSE GIVEN: DATE:10-15-16 TIME:8:30 a.m. NEXT DOSE DUE: DATE:10-16-16 TIME:8:30 a.m. Entered as Reported by: YULISA LOPEZ on 10/07/16 1358 Last Action: Reviewed on 04/01/191653 by LISS OCAMPO Sitagliptin Phosphate (Januvia) 100 Mg Tablet, 1 TAB PO DAILY for antidiabetic, #30 Ref 5 (Reported) LAST DOSE GIVEN: DATE:10-15-16 TIME:8:30 a.m. NEXT DOSE DUE: DATE:10-16-16 TIME:8;30 a.m. Entered as Reported by: STEPHANIE MENDOZA on 07/26/16 1301 Last Action: Reviewed on 04/01/191653 by LISS OCAMPO [Pantoprazole] 40 MG TABLET.DR, 40 MG PO DAILYAC for 30 Days, #30 Prescribed by: IVA AGUILAR MD on 03/24/19 1534 Last Action: Reviewed on 04/01/191653 by ROMERO LOU MD April 04, 2019 11:06
--- NOTE | 2019-04-04 14:23 | SNU/HH DC ---
DISCHARGE ORDERS DISCHARGE INFORMATION: DISCHARGE DATE: April 04, 2019 FINAL DIAGNOSIS Problems Medical Problems: (1) Hypoglycemia Status: Acute CONDITION ON DISCHARGE: Stable CODE STATUS: Code Status: Full JAIL: SNF STAY <30 DAYS: Yes HOSPICE: HOSPICE: No HOSPICE EVAL & TREAT: No LTAC: ADMIT TO LTAC: No POST DISCHARGE ORDERS: ACTIVITY ORDERS: Activity as tolerated, Progressive ambulation WEIGHT BEARING STATUS: Full weight bearing, As tolerated BATHING ORDERS: Shower-keep dressing dry, No Tub Bath until see DIET AFTER DISCHARGE: ADA WOUND/INCISION CARE: Ice to area for comfort, Keep wound/cast CDI, Change dressing CHECKS AFTER DISCHARGE: CHECKS AFTER DISCHARGE: Check blood sugar, ac/hs FOLLOW-UP: PHYSICIAN FOLLOW-UP: pcp re anemia, 4 weeks, baselinme hgb 7.5 -[facility] ANTICOAGULATION F/U NEEDED: avoid nSAIDs if able re JACK TREATMENT/EQUIPMENT ORDERS: ADAPTIVE EQUIPMENT NEEDED: None Physical Therapy For: Evalulation/Treatment Occupational Therapy For: Evaluation/Treatment Speech Language Pathology For: Evaluation/Treatment DISCHARGE MEDICATIONS: Home Meds Active Scripts [Pantoprazole] 40 [address].DR Dewitt Conflict Check, 40 MG PO DAILYAC for 30 Days, #30 Prov:IVA AGUILAR MD 03/24/19 Reported Medications Lisinopril/Hydrochlorothiazide (LISINOPRIL-HCTZ 10-12.5 MG TAB) 1 Each Tablet, 1 TAB PO DAILY for Blood Pressure, #30 TAB 5 Refills 03/22/19 Methocarbamol (ROBAXIN-750) 750 Mg Tablet, 750 MG PO PRN Q8HRS for muscle spasms, TAB LAST DOSE GIVEN: DATE:10-15-16 TIME:8:30 a.m. NEXT DOSE DUE: DATE:10-15-16 TIME:4:30 p.m. if needed for muscle spasms 10/15/16 Oxycodone/Apap 5-325 (PERCOCET 5-325 MG TABLET ) 1 Each Tablet, 1-2 TAB PO Q4- 6HRS for pain relief, #40 TAB No pain medication given this morning my take as needed for pain at any time 10/15/16 Allopurinol (ALLOPURINOL) 100 Mg Tablet, 1 TAB PO DAILY for prevent gout, #30 TAB 5 Refills LAST DOSE GIVEN: DATE:10-15-16 TIME:8:30 a.m. NEXT DOSE DUE: DATE:10-16-16 TIME:8:30 a.m. 10/07/16 Gluc/Juan-Msm#2/C/D3/[place]/Born (ZKSBZSVKWN-ZEMJNACYHBT-NGG TAB) 1 Each Tablet, 1 EACH PO DAILY for joint health supplement Not givne while in hosp. May resume at home as directed. 10/07/16 Alpha Lipoic Acid (ALPHA LIPOIC ACID) 300 Mg Capsule, 600 MG PO DAILY for alpha lipoc acid supplement Not given while in hosp. May resume at home as directed. 10/07/16 Potassium Chloride (KLOR-CON 10) 10 Meq Tablet.er, 1 TAB PO DAILY for potassium supplement, #30 TAB 5 Refills LAST DOSE GIVEN: DATE:10-15-16 TIME:8:30 a.m. NEXT DOSE DUE: DATE:10-16-16 TIME:8:30 a.m. 10/07/16 Atorvastatin Calcium (LIPITOR) 10 Mg Tablet, 1 TAB PO QHS for high cholesterol, #90 TAB 1 Refill Not given while in hosp. May resume at home as directed 10/07/16 Ferrous Sulfate (FERROUS SULFATE) 325 Mg Tablet, 1 TAB PO BID for iron supplement, #60 TAB 3 Refills LAST DOSE GIVEN: DATE:10-15-16 TIME:9:30 a.m. NEXT DOSE DUE: DATE:10-15-16 TIME:5:00 p.m. 10/07/16 Calcium Lactate (CALCIUM LACTATE) 650 Mg Tablet, 250 MG PO 8 tabs a day for calcium supplement Not given whilein hosp. May resume at home as directed 10/07/16 [place]-3 Fatty Acids (FISH OIL) 500 Mg Capsule., 1000 MG PO DAILY for heart health Not given while in hosp. May resume at home as directed 07/26/16 Aspirin (ASPIR 81) 81 Mg Tablet., 1 TAB PO DAILY for heart health, #30 TAB 5 Refills LAST DOSE GIVEN: DATE:10-15-16 TIME:9:00 a.m. NEXT DOSE DUE: DATE:10-16-16 TIME:9:00 a.m. 07/26/16 Multivitamin (MULTIVITAMINS) 1 Each Tablet, 1 TAB PO DAILY for vitamin supplement, #90 TAB 3 Refills LAST DOSE GIVEN: DATE:10-15-16 TIME:8:30 a.m. NEXT DOSE DUE: DATE:10-16-16 TIME:8:30 a.m. 07/26/16 Sitagliptin Phosphate (JANUVIA) 100 Mg Tablet, 1 TAB PO DAILY for antidiabetic, #30 TAB 5 Refills LAST DOSE GIVEN: DATE:10-15-16 TIME:8:30 a.m. NEXT DOSE DUE: DATE:10-16-16 TIME:8;30 a.m. 07/26/16 Metformin Hcl (METFORMIN HCL) 1,000 Mg Tablet, 1 TAB PO BID for antidiabetic, #60 TAB 5 Refills LAST DOSE GIVEN: DATE:10-15-16 TIME:9:00 a.m. NEXT DOSE DUE: DATE:10-15-16 TIME:5:00 p.m. 07/26/16 Glipizide (GLIPIZIDE) 10 Mg Tablet, 1 TAB PO BID for antidiabetic, #60 TAB 5 Refills LAST DOSE GIVEN: DATE:10-15-16 TIME:8:30 a.m. NEXT DOSE DUE: DATE:10-15-16 TIME:5:00 p.m. 07/26/16 Gabapentin (GABAPENTIN ) 300 Mg Capsule, 300 MG PO BID for nerve pain, CAP LAST DOSE GIVEN: DATE:10-15-16 TIME:8:30 a.m. NEXT DOSE DUE: DATE:10-15-16 TIME:9:00 p.m. 07/26/16 ROMERO SEARS MD April 04, 2019 14:23
--- NOTE | 2019-04-04 16:33 | NUR ---
SW following pt. SW phoned and faxed order to [facility]. Pt will transport via facility arranged transport at 1630. Packet on chart. Pt aware of plan and agreeable. JUSTIN ALAS.
--- NOTE | 2019-04-04 17:34 | NUR ---
Patient left the unit at 1730. Patient was escorted from the unit by [facility] staff in his personal wheelchair. Patient left the unit with his personal belongings and discharge paperwork. Discharge information was discussed with the patient and he had no questions or concerns.
[2019-04-05] MEDS ORDERED: PANTOPRAZOLE 40 MG TABLET.DR. PO SCH (07:30)
--- NOTE | 2019-04-05 09:48 | CONS ---
DATE OF CONSULTATION: 04/04/2019 HEMATOLOGY ONCOLOGY CONSULTATION REQUESTING PHYSICIAN: Dr. Nicole Moody. REASON FOR CONSULTATION: Chronic anemia. HISTORY OF PRESENTING ILLNESS: The patient is a 73-year-old gentleman who has history of multiple comorbidities. He has a history of colon cancer, diabetes mellitus type 2, chronic anemia, arthritis, decubitus ulcer. He was admitted to [facility] on 04/01/2019 and he was noted to have a hemoglobin of 7.5. He was given IV Venofer 400 mg on 04/02/2019. His iron panel from 03/22/2019 revealed iron saturation of 11%, iron level of 18 and TIBC 162. He denies hematemesis, melena or hematochezia. No hemoptysis or hematuria. No significant loss of weight or loss of appetite. He denies nosebleeds or gum bleeding. I was asked to see the patient for further evaluation of anemia. The patient reports having had knee surgeries within the last 6 months. His CBC on 11/03/2018 revealed a hemoglobin of 11.1 with a WBC of 10.5 and a platelet count of 392. He has also had a GI workup. He was evaluated by Dr. Odonnell. There was no evidence of GI blood loss. 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 PAST MEDICAL HISTORY: Hypertension, diabetes, total knee replacement, colon cancer status post surgery. FAMILY HISTORY: Positive for hypertension. SOCIAL HISTORY: No smoking or alcohol abuse. REVIEW OF SYSTEMS: A 12-point review of system was performed. Pertinent positives are mentioned in the history of present illness. Rest of the system review is negative. PHYSICAL EXAMINATION: GENERAL APPEARANCE: The patient is a 73-year-old gentleman who is in no acute cardiorespiratory distress. VITAL SIGNS: Blood pressure 132/52, temperature 97.9. HEAD: Atraumatic, normocephalic. EYES: No icterus. NECK: Supple. CHEST: Bilaterally symmetrical. HEART: S1, S2 normal. ABDOMEN: Soft, nontender. CENTRAL NERVOUS SYSTEM: He is alert, awake and oriented x 3. PSYCHOLOGIC: Mood and affect are appropriate. MUSCULOSKELETAL: No joint effusions. LABORATORY DATA: WBC 11.3, hemoglobin 7.4, platelet count 662, MCV is 87. Creatinine 0.9. Iron studies from 03/22/2019 revealed iron of 18, TIBC 162 and iron saturation 11. IMPRESSION AND PLAN: 1. Anemia due to chronic disease. His iron saturation was decreased at 11% on 03/22/2019. He received a dose of IV Venofer on 04/02/2019. I have advised him to continue oral iron supplementation. He does not have any bleeding issues. He has had an upper endoscopy in 2019 that did not reveal any source of bleeding. I suspect that the majority of his anemia is primarily due to comorbidities and chronic conditions. His WBC and platelet counts were normal in 10/2018 and hence I suspect this is a reactive leukocytosis and thrombocytosis. I would recommend to continue to monitor as outpatient by his primary care team. 2. Thrombocytosis, reactive. Continue to monitor. I discussed with registered nurse. MOR ALEXANDER MD DR: SACHA/esme JOB#: [id number] / [id number]
== END 2019-04-04 17:35 | DRG 811 ==
LOC: ER 14:03 → 6 SOUTH 15:33
PROVIDERS: ADMIT Internal Medicine; ATTEND Internal Medicine
PROC: 5A09357 Assistance with Respiratory Ventilation, Less than 24 Consecutive Hours, Continuous Positive Airway Pressure (ICD-10-PCS; principal; 2019-04-01)
PROC: 5A09357 Assistance with Respiratory Ventilation, Less than 24 Consecutive Hours, Continuous Positive Airway Pressure (ICD-10-PCS; 2019-04-02)
PROC: 5A09357 Assistance with Respiratory Ventilation, Less than 24 Consecutive Hours, Continuous Positive Airway Pressure (ICD-10-PCS; 2019-04-04)
DX: D50.9 Iron deficiency anemia, unspecified (principal); R53.2 Functional quadriplegia; E11.649 Type 2 diabetes mellitus with hypoglycemia without coma; D63.8 Anemia in other chronic diseases classified elsewhere; I11.0 Hypertensive heart disease with heart failure; L89.159 Pressure ulcer of sacral region, unspecified stage; Z99.3 Dependence on wheelchair; E78.00 Pure hypercholesterolemia, unspecified; G47.30 Sleep apnea, unspecified; I50.9 Heart failure, unspecified; Z96.659 Presence of unspecified artificial knee joint; K21.9 Gastro-esophageal reflux disease without esophagitis; E11.42 Type 2 diabetes mellitus with diabetic polyneuropathy; M19.90 Unspecified osteoarthritis, unspecified site; Z79.4 Long term (current) use of insulin; Z82.49 Family history of ischemic heart disease and other diseases of the circulatory system; Z85.038 Personal history of other malignant neoplasm of large intestine; Z87.11 Personal history of peptic ulcer disease; Z95.2 Presence of prosthetic heart valve; Z68.37 Body mass index [BMI] 37.0-37.9, adult
CPT/HCPCS: 36415; 80053; 82962; 85025; 85027; 85610; 85730; 86850; 86900; 86901; 87641; 96365; C9113; J1756; J1815; J7030; J7050; 99285-25